=== PATIENT | male | born 1950 | race Caucasian/White ===

== ENCOUNTER 2021-09-03 10:41 | Emergency (ER) | payer MEDICARE, OTHER ==
[2021-09-03] MEDS ORDERED: KETOROLAC 15 MG/ML 1 ML VIAL IM STA (13:34)
[2021-09-03] MEDS ORDERED: ORPHENADRINE 30 MG/ML 2 ML VIAL IM STA (13:34)
[2021-09-03 13:44] VITALS: RESP 18
[2021-09-03 16:10] VITALS: BP 171/89; PULSE 75; TEMP 98.6
--- NOTE | 2021-09-03 16:26 | ED ---
General Adult HPI - General Chief complaint: Neck Pain/Injury Stated complaint: neck pain Time Seen by Provider: 09/03/21 13:11 Source: patient Mode of arrival: EMS Limitations: no limitations - History of Present Illness Initial comments: 70-year-old male with a past medical history of hyperlipidemia, thyroid disorder presents to the emergency room for a chief complaint of neck pain. Patient states that he slept wrong and woke up with this pain. Patient states it is painful to move his neck especially to the left. Patient states this has happened before. States he can look up and down without difficulty. He denies fevers and chills. He denies any injury.Patient has no other complaints at this time including shortness of breath, chest pain, abdominal pain, nausea or vomiting, headache, or visual changes. - Related Data Home Medications Medication Instructions Recorded Confirmed Levothyroxine Sodium [Synthroid] 75 mcg PO DAILY 04/12/15 09/03/21 Aspirin EC [Ecotrin Low Dose] 81 mg PO DAILY 09/03/21 09/03/21 Chlorthalidone 25 mg PO DAILY 09/03/21 09/03/21 Cholecalciferol [Vitamin D3 (125 125 mcg PO DAILY 09/03/21 09/03/21 Mcg = 5000 Iu)] Simvastatin 80 mg PO DAILY 09/03/21 09/03/21 Previous Rx's Medication Instructions Recorded Acetaminophen [Tylenol] 500 mg PO Q4-6H PRN #20 tab 09/03/21 Cyclobenzaprine [Flexeril] 5 mg PO TID #12 tablet 09/03/21 Allergies Allergy/AdvReac Type Severity Reaction Status Date / Time No Known Allergies Allergy Verified 09/03/21 14:15 Review of Systems ROS Statement: Those systems with pertinent positive or pertinent negative responses have been documented in the HPI. ROS Other: All systems not noted in ROS Statement are negative. Past Medical History Past Medical History: Hyperlipidemia, Thyroid Disorder History of Any Multi-Drug Resistant Organisms: None Reported Past Surgical History: Hernia Repair Past Psychological History: No Psychological Hx Reported Smoking Status: Current every day smoker Past Alcohol Use History: None Reported Past Drug Use History: None Reported General Exam Limitations: no limitations General appearance: alert, in no apparent distress Head exam: Present: atraumatic Eye exam: Present: normal appearance, PERRL, EOMI. Absent: scleral icterus, conjunctival injection ENT exam: Present: normal exam, mucous membranes moist Neck exam: Present: normal inspection, tenderness (Paraspinal tenderness noted in the neck bilaterally. No cervical spine tenderness.), other (Neck slightly rotated to the Right). Absent: full ROM (Patient able to flex and extend neck however not able to turn to the left. 45 rotation to the right.) Respiratory exam: Present: normal lung sounds bilaterally. Absent: respiratory distress, wheezes Cardiovascular Exam: Present: regular rate, normal rhythm, normal heart sounds GI/Abdominal exam: Present: soft, normal bowel sounds. Absent: distended, tenderness Course Vital Signs 09/03/21 09/03/21 09/03/21 11:38 13:43 16:09 Temperature 97.6 F 98.6 F Pulse Rate 71 72 75 Respiratory 20 18 18 Rate Blood Pressure 172/81 171/84 171/89 O2 Sat by Pulse 97 98 98 Oximetry Medical Decision Making - Medical Decision Making Vitals are stable. Patient is well appearing. Patient has symptoms consistent with torticollis. He has had these symptoms in the past. He was given Toradol and Norflex and symptoms improved significantly. Patient will be discharged home to follow up with primary care with low-dose Flexeril. He will return here for any worsening symptoms. I discussed this case with attending Dr. Shah who agrees with this assessment and treatment plan. Disposition Clinical Impression: Cervical strain, acute Disposition: HOME SELF-CARE Condition: Good Instructions (If sedation given, give patient instructions): Cervical Strain (ED) Additional Instructions: Take medications as directed. Follow up with your doctor in 1-2 days. Return to the ER for any worsening symptoms. Prescriptions: Cyclobenzaprine [Flexeril] 5 mg PO TID #12 tablet Acetaminophen [Tylenol] 500 mg PO Q4-6H PRN #20 tab PRN Reason: Pain Is patient prescribed a controlled substance at d/c from ED?: No Referrals: Gerardo Navarro MD [Primary Care Provider] - 1-2 days Time of Disposition: 16:25
== END 2021-09-03 16:35 | disposition home or self-care (01) ==
LOC: EC 10:41
DX: S16.1XXA Strain of muscle, fascia and tendon at neck level, initial encounter (principal); I10 Essential (primary) hypertension; F17.200 Nicotine dependence, unspecified, uncomplicated; X58.XXXA Exposure to other specified factors, initial encounter
CPT/HCPCS: 99283; 96372; J2360; J1885

== ENCOUNTER 2024-05-19 12:57 | Inpatient (IN) | payer MEDICARE, OTHER ==
--- NOTE | 2024-05-19 14:04 | ED ---
General Adult HPI <Nate Galvez - Last Filed: 05/19/24 19:54> - General Source: patient, EMS Mode of arrival: EMS Limitations: no limitations <Ani Mohr - Last Filed: 05/31/24 15:59> - General Chief complaint: Urogenital Stated complaint: failure to thrive Time Seen by Provider: 05/19/24 13:30 - History of Present Illness Initial comments: 73-year-old male with past medical history of hypertension, hyperlipidemia, rheumatoid arthritis who presents emergency department with inability to ambulate. States he has not been out of bed for 1 month. He has significant weakness in his bilateral lower extremities which causes him to have difficulties with ambulation. States for the past month he has not even attempted to get up. He has been urinating in a small container but states at this point he has been urinating on himself as there is no place to put his exretements. He has been getting food delivered from [employer]. He had a friend call EMS today. Patient does live independently (Ani Mohr) - Related Data Previous Rx's Medication Instructions Recorded Clotrimazole Cream [Lotrimin Cream] 1 applic TOPICAL BID each 05/31/24 Cyanocobalamin [Vitamin B-12 1,000 mcg IM DAILY #60 each 05/31/24 Injection] Folic Acid 1 mg PO DAILY #100 tab 05/31/24 amLODIPine [Norvasc] 5 mg PO DAILY #90 tab 05/31/24 Allergies Allergy/AdvReac Type Severity Reaction Status Date / Time No Known Allergies Allergy Verified 05/19/24 15:06 Review of Systems ROS Other: All systems not noted in ROS Statement are negative. <Nate Galvez - Last Filed: 05/19/24 19:54> ROS Other: All systems not noted in ROS Statement are negative. <Ani Mohr - Last Filed: 05/31/24 15:59> ROS Statement: Those systems with pertinent positive or pertinent negative responses have been documented in the HPI. Past Medical History Past Medical History: Hyperlipidemia, Hypertension, Rheumatoid Arthritis (RA), Thyroid Disorder History of Any Multi-Drug Resistant Organisms: None Reported Past Surgical History: Hernia Repair Past Psychological History: No Psychological Hx Reported Smoking Status: Former smoker Past Alcohol Use History: None Reported Past Drug Use History: None Reported <Ani Mohr - Last Filed: 05/31/24 15:59> General Exam Limitations: no limitations <Ani Mohr - Last Filed: 05/31/24 15:59> Course Vital Signs 05/19/24 05/19/24 05/19/24 13:12 15:12 15:43 Temperature 98.2 F 98.0 F Pulse Rate 97 94 102 H Pulse Rate [ Pulse Oximetery ] Respiratory 17 17 20 Rate Blood Pressure 135/85 130/81 129/84 Blood Pressure [Left Arm] O2 Sat by Pulse 96 97 97 Oximetry 05/19/24 05/19/24 05/19/24 16:36 16:41 18:15 Temperature Pulse Rate 91 97 Pulse Rate [ Pulse Oximetery ] Respiratory 18 20 Rate Blood Pressure 106/74 111/77 121/90 Blood Pressure [Left Arm] O2 Sat by Pulse 97 97 96 Oximetry 05/19/24 05/19/24 05/19/24 18:57 19:37 19:57 Temperature 97.5 F L Pulse Rate 98 79 Pulse Rate [ 86 Pulse Oximetery ] Respiratory 18 17 16 Rate Blood Pressure 142/80 135/91 Blood Pressure [Left Arm] O2 Sat by Pulse 100 100 Oximetry 05/19/24 20:00 Temperature 98.3 F Pulse Rate Pulse Rate [ 86 Pulse Oximetery ] Respiratory 16 Rate Blood Pressure Blood Pressure 128/81 [Left Arm] O2 Sat by Pulse 98 Oximetry Medical Decision Making - Lab Data Result diagrams: 05/19/24 15:22 05/19/24 15:22 <Nate Galvez - Last Filed: 05/19/24 19:54> - Lab Data Result diagrams: 05/28/24 05:10 05/28/24 05:10 <nAi Mohr Lucila - Last Filed: 05/31/24 15:59> - Medical Decision Making I was notified by nursing staff that patient may have a left apical pne umothorax. This was read by radiology. Patient had already been admitted by previous provider. Questionable finding on chest x-ray therefore CT chest without contrast was ordered. Patient was in agreement this plan. CT chest as interpreted by myself reveals no evidence of pneumothorax. Radiology concurs with this evaluation. Patient will be admitted to the floor. Dr. Navarro was notified of this result and was in agreement the plan. (Nate Galvez) Was pt. sent in by a medical professional or institution (, PA, DELIVERY CLERK, urgent care, hospital, or snf...) When possible be specific @ -No Did you speak to anyone other than the patient for history (EMS, parent, family, police, friend...)? What history was obtained from this source @ -Spoke with EMS for history Did you review nursing and triage notes (agree or disagree)? Why? @ -I reviewed and agree with nursing and triage notes Were old charts reviewed (outside hosp., previous admission, EMS record, old EKG, old radiological studies, urgent care reports/EKG's, snf records)? Report findings @ -No old charts were reviewed Differential Diagnosis (chest pain, altered mental status, abdominal pain women, abdominal pain men, vaginal bleeding, weakness, fever, dyspnea, syncope, head ache, dizziness, GI bleed, back pain, seizure, CVA, palpatations, mental health, musculoskeletal)? @ -Differential Weakness: Hypoglycemia, shock, sepsis, hyponatremia, anemia, infection, MT, ETOH, adverse medicine reaction, overdose, stroke, this is not meant to be an all-inclusive list. EKG interpreted by me (3pts min.). @ -Yes and demonstrates sinus rhythm with rate of 98. WV interval 120. QRS 97. QTc of 424. No acute ST segment elevations or depressions X-rays interpreted by me (1pt min.). @ -Yes and radiologist does read as questionable for pneumothorax CT interpreted by me (1pt min.). @ -CT demonstrates no pneumothorax U/S interpreted by me (1pt. min.). @ -None done What testing was considered but not performed or refused? (CT, X-rays, U/S, labs)? Why? @ -None What meds were considered but not given or refused? Why? @ -None Did you discuss the management of the patient with other professionals (professionals i.e. , TANYA, DELIVERY CLERK, lab, RT, psych nurse, elementary school social worker, litigation services manager, teacher, supply requirements officer, case maker)? Give summary @ -Spoke with Dr. Navarro who accepted the patient as an admission Was smoking cessation discussed for >3mins.? @ -No Was critical care preformed (if so, how long)? @ -No Were there social determinants of health that impacted care today? How? (Homelessness, low income, unemployed, alcoholism, drug addiction, transportation, low edu. Level, literacy, decrease access to med. care, senior living, rehab)? @ -No Was there de-escalation of care discussed even if they declined (Discuss DNR or withdrawal of care, Hospice)? DNR status @ -No What co-morbidities impacted this encounter? (DM, HTN, Smoking, COPD, CAD, Cancer, CVA, ARF, Chemo, Hep., AIDS, mental health diagnosis, sleep apnea, morbid obesity)? @ -None Was patient admitted / discharged? Hospital course, mention meds given and route, prescriptions, significant lab abnormalities, going to OR and other pertinent info. @ -Upon arrival patient seen and evaluated in room 19. Thorough history and physical exam was performed. Patient completely disheveled. IV was established and laboratory studies are conducted. Chest x-ray was performed. Patient unable to care for himself I did speak with Dr. Navarro who will accept the patient Undiagnosed new problem with uncertain prognosis? @ -No Drug Therapy requiring intensive monitoring for toxicity (Heparin, Nitro, Insulin, Cardizem)? @ -No Were any procedures done? @ -No Diagnosis/symptom? @ -Acute weakness, inability to ambulate Acute, or Chronic, or Acute on Chronic? @ -Acute Uncomplicated (without systemic symptoms) or Complicated (systemic symptoms)? @ -Complicated Side effects of treatment? @ -No Exacerbation, Progression, or Severe Exacerbation? @ -No Poses a threat to life or bodily function? How? (Chest pain, USA, MT, pneumonia, PE, COPD, DKA, ARF, appy, cholecystitis, CVA, Diverticulitis, Homicidal, Suicidal, threat to staff... and all critical care pts) @ -No (Ani Mohr) - Lab Data Lab Results 05/19/24 05/19/24 05/19/24 Range/Units 15:22 15:22 15:22 WBC 7.9 (3.8-10.6) k/uL RBC 5.02 (4.30-5.90) m/uL Hgb 14.8 (13.0-17.5) gm/dL Hct 44.8 (39.0-53.0) % MCV 89.2 (80.0-100.0) fL MCH 29.5 (25.0-35.0) pg MCHC 33.1 (31.0-37.0) g/dL RDW 12.3 (11.5-15.5) % Plt Count 141 L (150-450) k/uL MPV 10.3 Neutrophils % 80 % Lymphocytes % 10 % Monocytes % 6 % Eosinophils % 1 % Basophils % 0 % Neutrophils # 6.4 (1.3-7.7) k/uL Lymphocytes # 0.8 L (1.0-4.8) k/uL Monocytes # 0.5 (0-1.0) k/uL Eosinophils # 0.1 (0-0.7) k/uL Basophils # 0.0 (0-0.2) k/uL PT 11.0 (10.0-12.5) sec INR 1.0 (<1.2) APTT 21.1 L (22.0-30.0) sec Sodium 136 L (137-145) mmol/L Potassium 5.3 H (3.5-5.1) mmol/L Chloride 107 (98-107) mmol/L Carbon Dioxide 22 (22-30) mmol/L Anion Gap 7 mmol/L BUN 19 (9-20) mg/dL Creatinine 0.80 (0.66-1.25) mg/dL Est GFR (CKD-EPI)AfAm >90 (>60 ml/min/1.73 sqM) Est GFR (CKD-EPI)NonAf >90 (>60 ml/min/1.73 sqM) Glucose 94 (74-99) mg/dL Plasma Lactic Acid Leonard (0.7-2.0) mmol/L Calcium 9.7 (8.4-10.2) mg/dL Magnesium 1.8 (1.6-2.3) mg/dL Total Bilirubin 1.4 H (0.2-1.3) mg/dL AST 38 (17-59) U/L ALT 24 (4-49) U/L Alkaline Phosphatase 59 (38-126) U/L Troponin I (0.000-0.034) ng/mL Total Protein 7.9 (6.3-8.2) g/dL Albumin 4.4 (3.5-5.0) g/dL TSH 2.390 (0.465-4.680) mIU/L SARS-CoV-2 (PCR) (Not Detectd) 05/19/24 05/19/24 05/19/24 Range/Units 15:22 15:22 15:22 WBC (3.8-10.6) k/uL RBC (4.30-5.90) m/uL Hgb (13.0-17.5) gm/dL Hct (39.0-53.0) % MCV (80.0-100.0) fL MCH (25.0-35.0) pg MCHC (31.0-37.0) g/dL RDW (11.5-15.5) % Plt Count (150-450) k/uL MPV Neutrophils % % Lymphocytes % % Monocytes % % Eosinophils % % Basophils % % Neutrophils # (1.3-7.7) k/uL Lymphocytes # (1.0-4.8) k/uL Monocytes # (0-1.0) k/uL Eosinophils # (0-0.7) k/uL Basophils # (0-0.2) k/uL PT (10.0-12.5) sec INR (<1.2) APTT (22.0-30.0) sec Sodium (137-145) mmol/L Potassium (3.5-5.1) mmol/L Chloride (98-107) mmol/L Carbon Dioxide (22-30) mmol/L Anion Gap mmol/L BUN (9-20) mg/dL Creatinine (0.66-1.25) mg/dL Est GFR (CKD-EPI)AfAm (>60 ml/min/1.73 sqM) Est GFR (CKD-EPI)NonAf (>60 ml/min/1.73 sqM) Glucose (74-99) mg/dL Plasma Lactic Acid Leonard 1.3 (0.7-2.0) mmol/L Calcium (8.4-10.2) mg/dL Magnesium (1.6-2.3) mg/dL Total Bilirubin (0.2-1.3) mg/dL AST (17-59) U/L ALT (4-49) U/L Alkaline Phosphatase (38-126) U/L Troponin I 0.017 (0.000-0.034) ng/mL Total Protein (6.3-8.2) g/dL Albumin (3.5-5.0) g/dL TSH (0.465-4.680) mIU/L SARS-CoV-2 (PCR) Not Detected (Not Detectd) Disposition <Nate Galvez - Last Filed: 05/19/24 19:54> Is patient prescribed a controlled substance at d/c from ED?: No Time of Disposition: 15:19 Decision to Admit Reason: Admit from EC Decision Date: 05/19/24 Decision Time: 15:19 <Ani Mohr - Last Filed: 05/31/24 15:59> Clinical Impression: Unable to ambulate Disposition: ADMITTED IP TO THIS HOSP Condition: Stable
[2024-05-19] MEDS ORDERED: NALOXONE 0.4 MG/ML 1 ML VIAL IV PRN (15:22)
[2024-05-19 15:47] LABS: Basophils % (A) 0 %; Eosinophils # (A) 0.1 k/uL (0-0.7); Eosinophils % (A) 1 %; HCT 44.8 % (39.0-53.0); HGB 14.8 gm/dL (13.0-17.5); Lymphocytes # (A) 0.8 k/uL (1.0-4.8); Lymphocytes % (A) 10 %; MCH 29.5 pg (25.0-35.0); MCHC 33.1 g/dL (31.0-37.0); MCV 89.2 fL (80.0-100.0); Mean Platelet Volume 10.3; Monocytes # (A) 0.5 k/uL (0-1.0); Monocytes % (A) 6 %; Neutrophils # (A) 6.4 k/uL (1.3-7.7); Neutrophils % (A) 80 %; Platelet Count 141 k/uL (150-450); RBC 5.02 m/uL (4.30-5.90); RDW 12.3 % (11.5-15.5); WBC 7.9 k/uL (3.8-10.6)
[2024-05-19 16:06] LABS: ALT 24 U/L (4-49); African American GFR (CKD) >90 (>60 ml/min/1.73 sqM); Albumin 4.4 g/dL (3.5-5.0); Anion Gap 7 mmol/L; Blood Urea Nitrogen 19 mg/dL (9-20); Calcium 9.7 mg/dL (8.4-10.2); Carbon Dioxide 22 mmol/L (22-30); Chloride 107 mmol/L (98-107); Glucose 94 mg/dL (74-99); Magnesium 1.8 mg/dL (1.6-2.3); Non-African American GFR(CKD) >90 (>60 ml/min/1.73 sqM); Sodium 136 mmol/L (137-145); Total Protein 7.9 g/dL (6.3-8.2)
[2024-05-19 16:13] LABS: AST 38 U/L (17-59); Alkaline Phosphatase 59 U/L (38-126); Potassium 5.3 mmol/L (3.5-5.1); Total Bilirubin 1.4 mg/dL (0.2-1.3)
[2024-05-19 16:16] LABS: Partial Thromboplastin Time 21.1 sec (22.0-30.0)
[2024-05-19] MEDS: SODIUM CHLORIDE 0.9% 1,000 ML IV SCH (16:41)
--- NOTE | 2024-05-19 18:05 | XR ---
EXAMINATION TYPE: XR chest 2V DATE OF EXAM: 05/19/2024 COMPARISON: 11/30/2023 HISTORY: 73-year-old male with cough and pain, failure to thrive TECHNIQUE: AP and lateral views FINDINGS: Heart is normal in size. Aorta and pulmonary vasculature are within normal limits. Hyperinflation. No consolidation or pleural effusion. There is an edge projecting at the left apex. Unable to exclude a small left apical pneumothorax measuring 1.9 cm. IMPRESSION: 1. Correlate for underlying COPD 2. An edge projecting at the left apex. Either external artifact or a small 1.9 cm left apical pneumo thorax. Depending on clinical suspicion, either a short interval follow-up versus CT recommended. Ca lled to nurse Prudy at 6:01 pm. [facility], , 05/19/2024 6:02 PM
--- NOTE | 2024-05-19 19:35 | CT ---
EXAMINATION TYPE: CT chest wo con DATE OF EXAM: 05/19/2024 COMPARISON: Radiograph same day HISTORY: 73-year-old male rule out left-sided apical pneumothorax. TECHNIQUE: Contiguous axial scanning of the chest without IV contrast. Coronal/sagittal reconstructio ns performed. CT DLP: 249.1mGycm. Automatic exposure control utilized for a dose reduction. FINDINGS: The patient's right arm is down. Correlate as to the reason for this. Heart normal size without pericardial effusion. In LAD and RCA coronary artery calcifications are pre sent. Aorta normal caliber with mild atherosclerotic arch calcifications and conventional arterial anatomy. Possible moderate atherosclerotic stenosis at the origin of the left subclavian artery. No thoracic lymphadenopathy by CT size criteria. Moderate emphysematous change with combination of centrilobular and paraseptal emphysema at the upper lungs. Scattered pulmonary nodules are present some of which are calcified suggesting prior granulomatous di sease. however, other nodules measuring up to 6 mm are noncalcified and warrant follow-up. No consolidation or pleural effusion. There is adherent mucoid debris along the right lateral wall of the lower trachea. Visualized upper abdomen shows some calcified granulomas in the spleen. Mild diffuse thickening left adrenal gland without discrete nodularity. Bones: Mildly accentuated midthoracic kyphosis with mild degenerative disc disease. IMPRESSION: 1. COPD with moderate emphysema and evidence of prior granulomatous disease. 2. However, there are additional noncalcified pulmonary nodules measuring up to 6 mm. 3 month follow- up CT chest to ensure stability. 3. No pneumothorax. Radiographic findings correspond to overlying artifact. 4. Correlate for the reason as to why the patient could not lift his right arm. [facility], , 05/19/2024 7:32 PM
[2024-05-19] MEDS: ZINC OXIDE PASTE (Z-GUARD) 1 APPLIC TOPICAL PRN (23:00)
[2024-05-20 08:47] LABS: Basophils # (A) 0.05 X 10*3/uL (0.00-0.10); Basophils % (A) 0.7 %; Eosinophils # (A) 0.11 X 10*3/uL (0.04-0.35); Eosinophils % (A) 1.5 %; HCT 41.5 % (39.6-50.0); Lymphocytes # (A) 1.28 X 10*3/uL (0.90-5.00); Lymphocytes % (A) 17.8 %; MCH 29.3 pg (27.0-32.0); MCHC 33.7 g/dL (32.0-37.0); MCV 86.8 FL (80.0-97.0); Mean Platelet Volume 12.9 FL (9.5-12.2); Monocytes % (A) 12.5 %; NRBC Per 100 WBC 0 X 10*3/uL (0.00-0.01); Neutrophils # (A) 4.81 X 10*3/uL (1.80-7.70); Neutrophils % (A) 67.1 %; Platelet Count 136 X 10*3/uL (140-440); RBC 4.78 X 10*6/uL (4.40-5.60); RDW 12.4 % (11.5-14.5); WBC 7.18 X 10*3/uL (4.50-10.00)
[2024-05-20 08:54] LABS: ALT 21 U/L (10-49); AST 26 U/L (14-35); Albumin 3.8 g/dL (3.8-4.9); Albumin/Globulin Ratio 1.31 Ratio (1.60-3.17); Alkaline Phosphatase 65 U/L (41-126); BUN/Creat Ratio 17.11 Ratio (12.00-20.00); Blood Urea Nitrogen 15.4 mg/dL (9.0-27.0); Calcium 9.2 mg/dL (8.7-10.3); Carbon Dioxide 21.6 mmol/L (21.6-31.8); Chloride 104 mmol/L (96-109); Globulin 2.9 g/dL (1.6-3.3); Glucose 78 mg/dL (70-110); Potassium 4.3 mmol/L (3.5-5.5); Sodium 139 mmol/L (135-145); Total Bilirubin 0.8 mg/dL (0.3-1.2); Total Protein 6.7 g/dL (6.2-8.2)
[2024-05-20] MEDS: LIDOCAINE 2% URO-JET JELLY 5 ML KIT URETHRAL ONE (17:49)
[2024-05-20] MEDS: LIDOCAINE 2% (PF) 20 MG/ML 5 ML VIAL SQ STA (17:49)
--- NOTE | 2024-05-20 17:56 | P.GSCN ---
History of Present Illness Consult date: 05/20/24 Reason for Consult: Urinary retention Requesting physician: Gerardo Navarro History of present illness: The patient is a 73-year-old white male admitted with weakness. He is experiencing difficulty ambulating. He reports difficulty voiding. Bladder scan has shown over 500 cc of urine in the bladder. Attempts by the nursing staff to insert a Charles catheter were unsuccessful. I am consulted for this reason. The patient is a very vague historian and is unable to provide any relevant history. Review of Systems ROS unobtainable: due to mental status Past Medical History Past Medical History: Hyperlipidemia, Hypertension, Rheumatoid Arthritis (RA), Thyroid Disorder History of Any Multi-Drug Resistant Organisms: None Reported Past Surgical History: Hernia Repair Past Anesthesia/Blood Transfusion Reactions: No Reported Reaction Past Psychological History: No Psychological Hx Reported Smoking Status: Former smoker Past Alcohol Use History: None Reported Past Drug Use History: None Reported Medications and Allergies Home Medications Medication Instructions Recorded Confirmed Type No Known Home Medications 05/19/24 05/19/24 History Allergies Allergy/AdvReac Type Severity Reaction Status Date / Time No Known Allergies Allergy Verified 05/19/24 15:06 Surgical - Exam Vital Signs Temp Pulse Resp BP Pulse Ox 98.2 F 97 17 135/85 96 05/19/24 13:12 05/19/24 13:12 05/19/24 13:12 05/19/24 13:12 05/19/24 13:12 - General well developed, well nourished, moderate distress - Respiratory normal respiratory effort - Abdomen Soft, non-distended. Mild suprapubic tenderness and distention. - Genitourinary Uncircumcised phallus without lesions. Normal urethral meatus. Normal scrotum and testes. - Psychiatric oriented to time, oriented to person, oriented to place, speech is normal, memory intact Results - Labs 05/20/24 04:39 05/20/24 04:39 Abnormal Lab Results - Last 24 Hours (Table) 05/20/24 05/20/24 Range/Units 04:39 04:39 Plt Count 136 L (140-440) X 10*3/uL MPV 12.9 H (9.5-12.2) FL Anion Gap 13.40 H (4.00-12.00) mmol/L Albumin/Globulin Ratio 1.31 L (1.60-3.17) Ratio Diabetes panel 05/20/24 Range/Units 04:39 Sodium 139 (135-145) mmol/L Potassium 4.3 (3.5-5.5) mmol/L Chloride 104 (96-109) mmol/L Carbon Dioxide 21.6 (21.6-31.8) mmol/L BUN 15.4 (9.0-27.0) mg/dL Creatinine 0.9 (0.6-1.5) mg/dL Glucose 78 (70-110) mg/dL Calcium 9.2 (8.7-10.3) mg/dL AST 26 (14-35) U/L ALT 21 (10-49) U/L Alkaline Phosphatase 65 (41-126) U/L Total Protein 6.7 (6.2-8.2) g/dL Albumin 3.8 (3.8-4.9) g/dL Calcium panel 05/20/24 Range/Units 04:39 Calcium 9.2 (8.7-10.3) mg/dL Albumin 3.8 (3.8-4.9) g/dL Pituitary panel 05/20/24 Range/Units 04:39 Sodium 139 (135-145) mmol/L Potassium 4.3 (3.5-5.5) mmol/L Chloride 104 (96-109) mmol/L Carbon Dioxide 21.6 (21.6-31.8) mmol/L BUN 15.4 (9.0-27.0) mg/dL Creatinine 0.9 (0.6-1.5) mg/dL Glucose 78 (70-110) mg/dL Calcium 9.2 (8.7-10.3) mg/dL Adrenal panel 05/20/24 Range/Units 04:39 Sodium 139 (135-145) mmol/L Potassium 4.3 (3.5-5.5) mmol/L Chloride 104 (96-109) mmol/L Carbon Dioxide 21.6 (21.6-31.8) mmol/L BUN 15.4 (9.0-27.0) mg/dL Creatinine 0.9 (0.6-1.5) mg/dL Glucose 78 (70-110) mg/dL Calcium 9.2 (8.7-10.3) mg/dL Total Bilirubin 0.8 (0.3-1.2) mg/dL AST 26 (14-35) U/L ALT 21 (10-49) U/L Alkaline Phosphatase 65 (41-126) U/L Total Protein 6.7 (6.2-8.2) g/dL Albumin 3.8 (3.8-4.9) g/dL Assessment and Plan (1) Retention of urine, unspecified Current Visit: Yes Status: Acute Code(s): R33.9 - RETENTION OF URINE, UNSPECIFIED SNOMED Code(s): 013699676 Plan: Attempts to place a Charles catheter were unsuccessful. Ultimately, it was necessary to place a suprapubic cystostomy tube, which the patient tolerated well. The suprapubic tube was connected to gravity drainage. Cystoscopy will be performed in 2 to 4 weeks to evaluate the lower urinary tract. Time with Patient: Greater than 30
--- NOTE | 2024-05-20 17:58 | P.OP ---
Date of Procedure: 05/20/24 Preoperative Diagnosis: Urinary retention Postoperative Diagnosis: Urinary retention, urethral false passage Procedure(s) Performed: Urethroscopy, insertion of suprapubic cystostomy tube Anesthesia: local Surgeon: Wilman Whitt Estimated Blood Loss (ml): 5 Pathology: none sent Condition: stable Disposition: no change Indications for Procedure: The patient is a 73-year-old white male found to be in urinary retention. He is a vague historian. Attempts by the nursing staff to insert a Charles catheter were unsuccessful. I have been consulted for this reason. Operative Findings: 1) Bulbous urethral false passage. 2) Successful placement of suprapubic cystostomy tube. Description of Procedure: The penis was prepped and draped sterilely. 2% lidocaine gel was administered intraurethrally. Attempts to pass a 16 Divehi and a 12 Divehi coud tip Charles catheter were unsuccessful. Therefore, the Olympus flexible cystoscope was obtained and urethroscopy was performed. The penile urethra appeared normal. A false passage was identified within the bulbous urethra. It was not possible to identify the lumen, and thus it was not possible to advance the cystoscope into the bladder. The patient was advised to undergo placement of a suprapubic cystostomy tube, to which she was agreeable. The lower abdomen was prepped and draped sterilely. 2% lidocaine was injected subcutaneously 2 fingerbreadths above the pubis symphy sis, in the midline. The suprapubic cystostomy tube kit consisted of an 18- gauge needle and a 14 Divehi catheter. This was slowly advanced into the bladder, and after removing the needle the catheter was advanced and secured to the abdominal wall using 2-0 silk ties. Clear urine drained from the catheter, which was connected to gravity drainage. The patient tolerated the procedure well.
[2024-05-20 18:51] LABS: Appearance,Urine Clear (Clear); Bilirubin,Urine Negative (Negative); Blood,Urine Moderate (Negative); Color,Urine Yellow; Glucose,Urine (UA) Negative (Negative); Ketones,Urine Negative (Negative); Leukocyte Esterase,Urine Large (Negative); Mucus,Urine Rare /hpf; Nitrite,Urine Negative (Negative); Protein,Urine Negative (Negative); RBC,Urine 82 /hpf (0-5); Specific Gravity,Urine 1.018 (1.001-1.035); WBC,Urine 26 /hpf (0-5)
[2024-05-20] MEDS: CLOTRIMAZOLE 1% CREAM 30 GM TUBE TOPICAL SCH (20:24)
--- NOTE | 2024-05-21 02:02 | HP ---
HISTORY AND PHYSICAL CHIEF COMPLAINT: Weakness, general debility. HISTORY OF PRESENT ILLNESS: This is 1st known admission for this 73-year-old white male. He used to be seen in the office through the years for mild hypertension and heavy nicotine use. He came into the emergency room on the day of admission stating that he had not been out of the bed for a year. He relies on meals on wheels. He came in disheveled and covered with urine and feces. He may be slightly delirious and confused, but it was difficult to tell. He had no focal neurologic deficits, and he had no complaints of chest pain, abdominal pain, etc. REVIEW OF SYSTEMS: Difficult to obtain. Past medical history, family history, personal and social histories are all otherwise unknown except as mentioned. PHYSICAL EXAMINATION: VITAL SIGNS: Blood pressure is 182/98 with a pulse of 90, respirations were 32. GENERAL: He appeared to be debilitated, weak, dehydrated, and malnourished. HEAD, EARS, EYES, NOSE, MOUTH AND THROAT: Unremarkable. NECK: Carotids were normal. CHEST: Clear. CARDIAC: Normal. ABDOMEN: Flat and soft. He had extensive maceration in the groin and genital areas. EXTREMITIES: Seemed to be normal. IMPRESSION: 1. General debility and weakness. 2. Maceration of the perineum and groin. 3. Chronic obstructive pulmonary disease. 4. Hypertension. PLAN: 1. Bed rest. 2. IV fluids. 3. Controlled hypertension. 4. Physical therapy, occupational therapy, and discharge planning. MMODL / IJN: [id number] /
--- NOTE | 2024-05-21 02:38 | PN ---
PROGRESS NOTE DATE OF SERVICE: 05/20/2024 CHIEF COMPLAINT: Mental status changes, malnutrition, dehydration, and general debility. HISTORY OF PRESENT ILLNESS: This gentleman is still weak and dehydrated. He is delirious. Cognitive function is not normal. PHYSICAL EXAMINATION: VITAL SIGNS: Blood pressure is 182/98. LUNGS: Breath sounds are heard bilaterally. CARDIAC: Normal. IMPRESSION: 1. Dehydration. 2. Malnutrition. 3. Delirium. 4. General debility. 5. Chronic obstructive pulmonary disease. 6. Hypertension. PLAN: 1. Continue with IV fluids. 2. PT, OT, and discharge planning. 3. Monitor pain control, hypertension. MMODL / IJN: [id number] /
--- NOTE | 2024-05-21 10:44 | P.PN ---
Subjective Progress Note Date: 05/21/24 Principal diagnosis: Urinary retention Patient was admitted with weakness and inability to ambulate. He reported difficulty voiding and was found to be in urinary retention. A Charles catheter could not be placed due to a urethral false passage, and therefore a suprapubic cystostomy tube was placed. The catheter is currently draining clear yellow urine, and the patient expresses no discomfort associated with that. He has no significant urethral bleeding. Objective - Vital Signs Vital signs: Vital Signs Temp 97.3 F L 05/21/24 07:13 Pulse 81 05/21/24 07:13 Resp 16 05/21/24 07:13 BP 165/80 05/21/24 07:13 Pulse Ox 96 05/21/24 07:13 FiO2 Intake & Output 05/20/24 05/21/24 05/21/24 18:59 06:59 18:59 Intake Total 590 Output Total 50 1400 Balance -50 -810 Intake: Oral 590 Output: Urine 50 1400 Other: Voiding Method Diaper Ileal Conduit (Right) Incontinent # Voids 1 - Constitutional General appearance: Present: average body habitus, cooperative, no acute distress - Psychiatric Psychiatric: Present: A&O x's 3 - Labs CBC & Chem 7: 05/20/24 04:39 05/20/24 04:39 Labs: Abnormal Lab Results - Last 24 Hours (Table) 05/20/24 Range/Units 18:04 Urine Blood Moderate H (Negative) Ur Leukocyte Esterase Large H (Negative) Urine RBC 82 H (0-5) /hpf Urine WBC 26 H (0-5) /hpf Urine Mucus Rare H (None) /hpf Assessment and Plan (1) Retention of urine, unspecified Current Visit: Yes Status: Acute Code(s): R33.9 - RETENTION OF URINE, UNSPECIFIED SNOMED Code(s): 902304525 Plan: It is unclear at this time whether the patient will be discharged home or to a rehab center. In any case, he should be discharged with the suprapubic tube. Arrangements will be made for him to undergo cystoscopy in 3 to 4 weeks to evaluate the lower urinary tract. Please notify me if I can be of any further assistance during this hospitalization.
[2024-05-21 11:27] LABS: African American GFR (CKD) >90 (>60 ml/min/1.73 sqM); Anion Gap 8 mmol/L; Blood Urea Nitrogen 13 mg/dL (9-20); Calcium 8.4 mg/dL (8.4-10.2); Carbon Dioxide 22 mmol/L (22-30); Chloride 105 mmol/L (98-107); Glucose 95 mg/dL (74-99); Non-African American GFR(CKD) 89 (>60 ml/min/1.73 sqM); Potassium 3.6 mmol/L (3.5-5.1); Sodium 135 mmol/L (137-145)
[2024-05-21 11:40] LABS: Basophils % (A) 0 %; Eosinophils % (A) 0 %; Lymphocytes # (A) 0.6 k/uL (1.0-4.8); Lymphocytes % (A) 8 %; MCH 29.6 pg (25.0-35.0); MCHC 33.4 g/dL (31.0-37.0); MCV 88.7 fL (80.0-100.0); Mean Platelet Volume 10.4; Monocytes # (A) 0.7 k/uL (0-1.0); Monocytes % (A) 9 %; Neutrophils # (A) 6.5 k/uL (1.3-7.7); Neutrophils % (A) 82 %; Platelet Count 119 k/uL (150-450); RBC 4.39 m/uL (4.30-5.90); RDW 12.2 % (11.5-15.5); WBC 7.9 k/uL (3.8-10.6)
--- NOTE | 2024-05-21 12:14 | PN ---
PROGRESS NOTE CHIEF COMPLAINT: General debility, urinary retention, COPD. HISTORY OF PRESENT ILLNESS: This is a gentleman who has been fairly stable. His blood pressure has gone up slightly. Catheter could not be placed yesterday and he wound up with a suprapubic cystoscopy. PHYSICAL EXAMINATION: CHEST: Clear. CARDIAC: Normal. ABDOMEN: Soft, nontender. IMPRESSION: 1. General debility and weakness. 2. Urinary retention. 3. Chronic obstructive pulmonary disease. 4. Mental status changes. PLAN: 1. PT and OT. 2. Continue rehydration. 3. Discharge planning. MMODL / IJN: [id number] /
[2024-05-22] MEDS: ACETAMINOPHEN TAB 325 MG TAB PO PRN (16:02)
--- NOTE | 2024-05-22 21:44 | PN ---
PROGRESS NOTE DATE OF SERVICE: 05/22/2024 CHIEF COMPLAINT: General debility and mental status changes. HISTORY OF PRESENT ILLNESS: This gentleman is doing fairly well. Suprapubic catheter is in place. He remains confused and his speech is not normal. He is complaining of some back pain. PHYSICAL EXAMINATION: CHEST: Clear. CARDIAC: Normal. ABDOMEN: Flat, nontender. Suprapubic catheter is in place. IMPRESSION: 1. Mental status changes. 2. General debility. 3. Urinary retention. 4. Back pain. PLAN: Tylenol for back pain and assess this week as to what his sensory motor, speech, and cognitive function are. MMODL / IJN: [id number] /
--- NOTE | 2024-05-22 22:08 | PN ---
PROGRESS NOTE DATE OF SERVICE: 05/21/2024 CHIEF COMPLAINT: General debility, weakness, mental status changes. HISTORY OF PRESENT ILLNESS: This gentleman is the same. He is awake and alert, but confused and does have difficulty with speech. PHYSICAL EXAMINATION: VITAL SIGNS: Normal. CHEST: Clear. CARDIAC: Normal. ABDOMEN: Flat and soft. IMPRESSION: 1. General debility. 2. Mental status changes. 3. Dysarthria. PLAN: Continue to stabilize and look at rehab capabilities. MMANJUL / PANCHITON: [id number] /
[2024-05-24] MEDS: amLODIPine 5 MG TAB PO SCH (08:35)
--- NOTE | 2024-05-24 22:20 | PN ---
PROGRESS NOTE DATE OF SERVICE: 05/23/2024 CHIEF COMPLAINT: General debility, weakness, mental status changes, COPD, and inability to ambulate. HISTORY OF PRESENT ILLNESS: This gentleman is doing about the same. He cannot bear weight. His blood pressure is elevated and this will be addressed. We are waiting for discharge plan. PHYSICAL EXAMINATION: CHEST: Breath sounds are heard bilaterally. CARDIAC: Normal. ABDOMEN: Soft, nontender. IMPRESSION: 1. General debility and weakness with inability to ambulate. 2. Chronic obstructive pulmonary disease. 3. Mental status changes. 4. Hypertension. PLAN: Await for discharge location and in the meantime manage his hypertension. MMODL / IJN: [id number] /
--- NOTE | 2024-05-26 04:16 | PN ---
PROGRESS NOTE DATE OF SERVICE: 05/24/2024 CHIEF COMPLAINT: General debility, dehydration, malnutrition, and inability to ambulate. HISTORY OF PRESENT ILLNESS: This gentleman has been fairly stable. Blood pressure is better. He is awake and alert. PHYSICAL EXAMINATION: CHEST: Clear. CARDIAC: Normal. ABDOMEN: Flat and soft with suprapubic catheter in place. IMPRESSION: 1. General debility. 2. Failure to thrive. 3. Malnutrition. 4. Dehydration. 5. Left leg weakness with inability to ambulate. 6. Urinary retention. PLAN: No current change in his program. MMODL / IJN: [id number] /
--- NOTE | 2024-05-26 04:32 | PN ---
PROGRESS NOTE DATE OF SERVICE: 05/25/2024 CHIEF COMPLAINT: General debility, weakness, malnutrition, dehydration, and urinary retention. HISTORY OF PRESENT ILLNESS: This gentleman is doing fairly well and is stable and we are looking for half-way after discharge. MMANJUL / IJN: [id number] /
[2024-05-26 13:16] VITALS: BMI 26.6
--- NOTE | 2024-05-27 01:14 | PN ---
PROGRESS NOTE DATE OF SERVICE: 05/26/2024 CHIEF COMPLAINT: General debility and weakness. HISTORY OF PRESENT ILLNESS: This gentleman is about the same. We are looking for mcc placement. I learned today that he has a family and also a guardian. Apparently, they have been talking to the hospital and want him to have an orthopedic consult for his back and a neurologic consult for his weakness. Apparently, there is a family history of ALS. PHYSICAL EXAMINATION: CHEST: Clear. CARDIAC: Normal. ABDOMEN: Soft, nontender. IMPRESSION: 1. General debility and weakness. 2. Malnutrition. 3. Dehydration. 4. Urinary retention. PLAN: Consult with Orthopedics and Neurology. MMODL / IJN: [id number] /
--- NOTE | 2024-05-27 07:27 | CDI ---
Documentation Clarification Form Date: 05/27/2024 From: Sandra Doran RN CCDS Phone: [phone] Admit Date: 05/19/2024 03:57:00 PM Patient Name: Guerrero Johnson Visit Number: [id number] Discharge Date: ATTENTION: The Clinical Documentation Specialists (CDI) and [facility] Coding Staff appreciate your assistance in clarifying documentation. Please respond to the clarification below the line at the bottom and electronically sign. The CDI & [facility] Coding staff will review the response and follow-up if needed. Please note: Queries are made part of the Legal Health Record. If you have any questions, please contact the author of this message via ITS. Doctor/Provider: Gerardo Navarro MD: Malnutrition is documented in the IM progress note 05/20 and in subsequent notes. Additional clarification regarding the severity of malnutrition is requested. History/Risk Factors: 73-year-old male with a history of HTN, and heavy nicotine use who presents with general debility and weakness, unable to ambulate, dehydration, also found to have urinary retention and hyponatremia Clinical Indicators: 05/26 BMI: 26.6 Height: 5ft 7in Weight: 77.11kg 05/20 IM PN, Impression: "2. Malnutrition" 05/26 RD Consult Assessment: "Nutrition Diagnosis, Inadequate energy intake, Related to diminished appetite as Evidenced by <75% of EEN being met" 05/19-05/21 Sodium: 136, 139, 135 Potassium: 5.3, 4.3, 3.6 Treatment: Healthy Heart Diet, Ensure Enlive TID Normal Saline IV 130cc/hour start 05/19 Please clarify the severity of malnutrition, if known: [ ] Mild Protein-Calorie Malnutrition [ ] Moderate Protein-Calorie Malnutrition [ ] Severe Protein-Calorie Malnutrition [ ] Malnutrition, unknown severity [ ] Other condition, please specify [ ] Unable to Determine Answered in IM PN 05/27- mild protein calorie malnutrition MTDD
--- NOTE | 2024-05-27 07:44 | CDI ---
Documentation Clarification Form Date: 05/27/2024 From: Sandra Doran RN CCDS Phone: [phone] Admit Date: 05/19/2024 03:57:00 PM Patient Name: Guerrero Johnson Visit Number: [id number] Discharge Date: ATTENTION: The Clinical Documentation Specialists (CDI) and [facility] Coding Staff appreciate your assistance in clarifying documentation. Please respond to the clarification below the line at the bottom and electronically sign. The CDI & [facility] Coding staff will review the response and follow-up if needed. Please note: Queries are made part of the Legal Health Record. If you have any questions, please contact the author of this message via ITS. Doctor/Provider: Gerardo Navarro MD: Your patient has the documented symptom of Confused" in the IM progress note 05/22. Additional clarification regarding the etiology/cause of this symptom is requested. History/Risk Factors: 73-year-old male with a history of HTN, and heavy nicotine use who presents with general debility and weakness, unable to ambulate, dehydration, also found to have urinary retention and hyponatremia Clinical Indicators: 05/20 IM PN, Impression: "3. Delirium" 05/22 IM PN, HPI: "He is awake and alert, but confused and does have difficulty with speech." Impression: "2. Mental status changes" 05/19-05/21 Sodium: 136, 139, 135 Potassium: 5.3, 4.3, 3.6 05/20 Urinalysis: Blood: Moderate, Leukocyte Esterase: Large, RBC: 82, WBC: 26, Mucus: Rare Treatment: Normal Saline IV 130cc/hour start 05/19 Please clarify the etiology of the symptom of Confused: [ ] Metabolic Encephalopathy due to abnormal Sodium, Potassium and Urinalysis [ ] Other condition (please specify) [ ] Unable to determine Answered in IM PN 05/27- Acute metabolic encephalopathy MTDD
[2024-05-27] MEDS: ENOXAPARIN 30 MG/0.3 ML SYRINGE SQ SCH (12:01)
--- NOTE | 2024-05-27 13:10 | P.CNOR ---
History of Present Illness - [facility] Consult date: 05/27/24 Requesting physician: Gerardo Navarro Consult reason: other (Lower extremity weakness greater on the left than the right, generalized weakness) History of present illness: Patient is a pleasant 73-year-old male who is seen examined the bedside for further valuation of his lumbar spine. Patient has been experiencing progressive weakness over the past several months and we were consulted in this regard. Patient states he does not experience any low back pain. He does not have any pain radiating down his bilateral lower extremities. He does admit to generalized weakness in his bilateral lower extremities which has been worsening over the past several months. He states approximately 6 months ago he was able to ambulate better. He states 2 months ago he was able to stand at the bedside. He is no longer able to ambulate independently. He does not have any sign ificant pain. He states he did try some different shoes that may have caused some pain in his calfs. He does admit to some calf pain bilaterally but no specific radicular pattern. He does have difficulty extending his knees bilaterally. He states he is known to have rheumatoid arthritis and does have some difficulty with this. He does have some changes in his hands bilaterally. He states he has limited range of motion and activity with his right upper extremity due to his rheumatoid arthritis over the past year. He denies any recent injuries. He does not have any imaging performed of his lumbar spine. Consultation has been placed with neurology for his weakness. Nursing states patient has a family history of Loida Gehrig's disease. Patient states his mother had Loida Gehrig's disease. Patient was having urinary retention. They were unable to pass a urinary catheter due to urethral false passage. A suprapubic catheter was placed by Dr. Whitt. Patient continues to be seen by medicine. He is planning for discharge to a rehabilitation facility at the time of discharge. Patient does have a legal guardian. Past Medical History Past Medical History: Hyperlipidemia, Hypertension, Rheumatoid Arthritis (RA), Thyroid Disorder History of Any Multi-Drug Resistant Organisms: None Reported Past Surgical History: Hernia Repair Past Anesthesia/Blood Transfusion Reactions: No Reported Reaction Past Psychological History: No Psychological Hx Reported Smoking Status: Former smoker Past Alcohol Use History: None Reported Past Drug Use History: None Reported Medications and Allergies Home Medications Medication Instructions Recorded Confirmed Type No Known Home Medications 05/19/24 05/19/24 History Allergies Allergy/AdvReac Type Severity Reaction Status Date / Time No Known Allergies Allergy Verified 05/19/24 15:06 Physical Examination Osteopathic Statement: *. No significant issues noted on an osteopathic structural exam other than those noted in the History and Physical/Consult. Physical exam: Patient is awake, alert, and oriented 3 Vital signs stable Good chest excursion with deep inspiration and expiration Examination of lumbar spine reveals skin is intact with no abrasions, lacerati ons, or bruises; no erythema, purulence or signs of infection Patient is able to perform some dorsiflexion, plantarflexion, and extensor hallucis longus bilaterally but does have some difficulty Patient has generalized weakness and difficulty with active range of motion throughout the bilateral lower extremities with greater weakness on the right and the left Patellar reflex 2+ bilaterally and Achilles reflexes 0+ bilaterally No lower extremity hyperreflexia bilaterally Patient does have some contracture at the knees bilaterally and is unable to perform full knee flexion bilaterally No signs or symptoms of DVT; no calf pain No pain with internal and external rotation of the hips bilaterally Neurovascularly intact Results - Labs Labs: H & H 05/19/24 05/20/24 05/21/24 Range/Units 15:22 04:39 10:25 Hgb 14.8 14.0 13.0 (13.0-17.5) gm/dL Hct 44.8 41.5 39.0 (39.0-53.0) % Coagulation 05/19/24 Range/Units 15:22 INR 1.0 (<1.2) Result Diagrams: 05/21/24 10:25 05/21/24 10:25 Assessment and Plan Assessment: Assessment: Generalized bilateral lower extremity weakness greater on the left Inability to stand independently over the past 2 months Inability to ambulate Progressive weakness over the past 6 months Urinary retention Unable to pass a urinary catheter due to urethral false passage Recent suprapubic catheter placement Family history of Loida Gehrig's disease Hypertension Hyperlipidemia Rheumatoid arthritis (1) Generalized weakness Current Visit: Yes Status: Acute Code(s): R53.1 - WEAKNESS SNOMED Code(s): 73533680 (2) Unable to stand up Current Visit: Yes Status: Acute Code(s): R68.89 - OTHER GENERAL SYMPTOMS AND SIGNS SNOMED Code(s): 924337011 (3) Hypertension Current Visit: Yes Status: Acute Code(s): I10 - ESSENTIAL (PRIMARY) HYPERTENSION SNOMED Code(s): 99585666 (4) Hyperlipidemia Current Visit: Yes Status: Acute Code(s): E78.5 - HYPERLIPIDEMIA, UNSPECIFIED SNOMED Code(s): 07252548 (5) Rheumatoid arthritis Current Visit: Yes Status: Acute Code(s): M06.9 - RHEUMATOID ARTHRITIS, UNSPECIFIED SNOMED Code(s): 45291545 (6) Suprapubic catheter Current Visit: Yes Status: Acute Code(s): Z93.59 - OTHER CYSTOSTOMY STATUS SNOMED Code(s): 676971317 (7) Family history of Loida Gehrig's disease Current Visit: Yes Status: Acute Code(s): Z82.0 - FAMILY HISTORY OF EPILEPSY AND OTH DIS OF THE NERVOUS SYS SNOMED Code(s): 934049347 (8) Retention of urine, unspecified Current Visit: Yes Status: Acute Code(s): R33.9 - RETENTION OF URINE, UNSPECIFIED SNOMED Code(s): 865455485 (9) Unable to ambulate Current Visit: Yes Status: Acute Code(s): R26.2 - DIFFICULTY IN WALKING, NOT ELSEWHERE CLASSIFIED SNOMED Code(s): 776343230 Plan: Plan: 1. Patient admits to progressive weakness over the past 6 months. He states he has been generally getting weaker with his lower extremities. He has not been able to stand over the past 2 months. He does not experience any low back pain. He denies any lower extremity radiculopathy symptoms. He has some calf soreness after wearing different shoes but admits he has not been ambulatory for months. He was able to stand at the bedside approximately 2 months ago. He states he has not been able to ambulate at all over the past 2 months. He does have some constriction at his knees bilaterally and is unable to fully extend his knees bilaterally but does not have any pain at his knees. He is able to perform some active range of motion of his lower extremities but is generally weaker throughout range of motion. He does not have any pain with internal and external rotation of his hips bilaterally. He has no pain with palpation over his lumbar spine. He does not have any significant hyperreflexia. We do not currently have any lumbar imaging. He denies any injuries. It is difficult to determine the cause of the patient's progressive and ongoing weakness whether it is stemming from his lumbar spine or another neurological cause. He does not experience any low back pain or radiculopathy symptoms. He does have lower extremity weakness but it is more generalized greater on the right than the left. He also has some reduced activity with his right upper extremity which she states has been ongoing over the past year due to rheumatoid arthritis. Patient states his mother had Loida Gehrig's disease. He feels his symptoms have slowly been progressing. Currently, consultation has been placed with neurology. I would like neur ology's input before ordering further imaging. We could obtain lumbar x-ray imaging for overall alignment and degenerative changes at his lumbar spine, but would need further imaging with MRI imaging to further assess his spinal cord, nerves, and intervertebral discs. He does not have low back pain or lower extremity radiculopathy. He does not have a specific lower extremity weakness but has generalized weakness in his bilateral lower extremities with the right greater than the left. Currently, patient will be discussed in detail with Dr. Miguel A Bradley before ordering further imaging or adjusting our plan of care. After further discussion with him, we may adjust our plan of care according to his recommendations. 2. Patient waiting for consultation with neurology. 3. Patient will continue be seen and examined by medicine for his other medical diagnoses. 4. Patient will continue to be seen by urology following suprapubic catheter placement The patient is seen and examined at bedside. He is somewhat of a limited historian where he had stated earlier that he had not been out of bed for a year his descriptions have been largely inconsistent. It is questionable as to whether he has been able to stand 2 months ago or even 6 months ago on his own. He certainly has weakness at his bilateral lower extremities with increased tone and some hyperreflexia and positive clonus at his bilateral lower extremities. His right upper extremity has profound weakness. His left upper extremity has limited range and increased tone through his upper extremity and hand. He has positive clonus at his bilateral upper extremities as well. It is difficult to determine the source of the patient's issues but he does have upper motor neuron signs. He has chronic weakness and inability to ambulate Bilateral lower extremity weakness with severe weakness at the right upper e xtremity as well Limited motion and weakness of left upper extremity The patient has some central neurologic issue that is difficult to specify at this point. From a spine standpoint it is possible that he may be experiencing some myelopathy stemming from his cervical cord given his right upper extremity weakness and global weakness overall. I think it can be worthwhile to obtain further imaging of his cervical spine and an MRI would be best to evaluate the cord. Neurology has been consulted to see him as well and I think that is appropriate to determine if there is significant central neurologic issue or further necessary workup in this regard. He should also continue his medical and neurologic workup and management Time with Patient: Greater than 30 (Including obtaining history, physical examination, reviewing of imaging, and dictation.)
--- NOTE | 2024-05-27 15:19 | P.PN ---
Subjective Progress Note Date: 05/27/24 Patient was assumed from Dr. Navarro today. Patient initially came in for urinary retention did have a suprapubic catheter placed by Dr. Whitt and is urinating without difficulty now. Patient family has concerns of increased weakness since March does have a family history of ALS. Patient also reports concern that he he may have ruptured his Achilles tendons at some point. Due to the weakness he was eval by physical therapy and has been recommended for subacute rehab does require insurance authorization and he will not be able to be discharged likely until Thursday. Orthopedics was consulted and also neurology. Review of Systems Constitutional: Denied any fatigue denied any fever. Cardio vascular: denied any chest pain, palpitations Gastrointestinal: denied any nausea, vomiting, diarrhea Pulmonary: Denied any shortness of breath cough Neurologic denied any new focal deficits reports weakness bilateral lower extremities. All inpatient medications were reviewed and appropriate changes in these medications as dictated in the interval history and assessment and plan. PHYSICAL EXAMINATION: GENERAL: The patient is alert and oriented x2-3, not in any acute distress. Well developed, well nourished. HEENT: Pupils are round and equally reacting to light. EOMI. No scleral icterus. No conjunctival pallor. Normocephalic, atraumatic. No pharyngeal erythema. No thyromegaly. CARDIOVASCULAR: S1 and S2 present. No murmurs, rubs, or gallops. PULMONARY: Chest is clear to auscultation, no wheezing or crackles. ABDOMEN: Soft, nontender, nondistended, normoactive bowel sounds. No palpable organomegaly. Suprapubic catheter present no redness or drainage around incision. MUSCULOSKELETAL: No joint swelling or deformity. EXTREMITIES: No cyanosis, clubbing, or pedal edema. NEUROLOGICAL: Gross neurological examination did not reveal any focal deficits. Weakness bilateral lower extremities SKIN: No rashes. Groin and perineal/ excoriation and maceration Assessment General debility and weakness secondary to advanced age and multiple comorbidities Bilateral lower extremity weakness for evaluation Altered mental status due to acute metabolic encephalopathy / need to rule out acute stroke Urinary retention requiring a suprapubic catheter secondary to a false urethral passage Mild protein calorie malnutrition Maceration of the groin and perineum Family history of ALS with progressive weakness in this patient over the last 2 to 6 months Hypertension Hyperlipidemia Rheumatoid arthritis history Chronic nicotine use COPD with no acute exacerbation GI prophylaxis DVT prophylaxis Lovenox Full Code Plan Brain CT without contrast ordered rule out stroke/ischemic event Orthopedics and neurology consultation PT/OT consultation have recommended subacute rehab and patient is currently pending accepting facility and insurance authorization. Monitor electrolytes repeat BMP/CBC Continue with suprapubic catheter and will continue on discharge. Monitor output. Continue zinc barrier paste to the groin maceration. The impression and plan of care has been dictated by Helene Rodrigues, Nurse Practitioner as directed. Dr. Winston MD I have performed a history and physical examination and medical decision making of this patient, discussed the same with the dictator, and agree with the dictators assessment and plan as written, documented as a scribe. Based on total visit time, I have performed more than 50% of this visit. Objective - Vital Signs Vital signs: Vital Signs Temp 97.3 F L 05/27/24 14:16 Pulse 93 05/27/24 14:16 Resp 14 05/27/24 14:17 BP 132/72 05/27/24 14:16 Pulse Ox 95 05/27/24 12:03 FiO2 Intake & Output 05/26/24 05/27/24 05/27/24 18:59 06:59 18:59 Intake Total 660 1200 Output Total 2100 1000 250 Balance -1440 200 -250 Weight 77.111 kg Intake: Oral 660 1200 Output: Urine 2100 1000 250 Other: Voiding Method Diaper Diaper Indwelling Catheter External Catheter External Catheter # Voids 1 2 - Labs CBC & Chem 7: 05/21/24 10:25 05/21/24 10:25 Assessment and Plan Time with Patient: Less than 30
--- NOTE | 2024-05-27 17:51 | CT ---
EXAMINATION TYPE: CT brain wo con DATE OF EXAM: 05/27/2024 COMPARISON: None INDICATION: AMS DLP: 1098.8 mGycm, Automated exposure control for dose reduction was used. CONTRAST: None CT of the brain is performed utilizing 3 mm thick sections through the posterior fossa and 3 mm thick sections through the remaining calvarium. Study is performed within 24 hours of arrival to the hosp [facility]. No abnormal hyperdensity is present to suggest an acute intracranial hemorrhage. No mass lesion is evident. No acute infarcts are evident. Ventricles and sulci are appropriate for the patient age. Paranasal sinuses and mastoid air cells within the [id number] are clear. IMPRESSION: 1. No acute intracranial process. Follow up MRI can be performed as clinically indicated. [facility], Workstation: [facility], 05/27/2024 5:49 PM
--- NOTE | 2024-05-28 09:30 | P.PN ---
Subjective Progress Note Date: 05/28/24 Patient is a pleasant 73-year-old male who is seen examined the bedside for further valuation of his lumbar spine. Patient has been experiencing progressive weakness over the past several months and we were consulted in this regard. Patient states he does not experience any low back pain. He does not have any pain radiating down his bilateral lower extremities. He does admit to generalized weakness in his bilateral lower extremities which has been worsening over the past several months. He states approximately 6 months ago he was able to ambulate better. He states 2 months ago he was able to stand at the bedside. He is no longer able to ambulate independently. He does not have any signific ant pain. He states he did try some different shoes that may have caused some pain in his calfs. He does admit to some calf pain bilaterally but no specific radicular pattern. He does have difficulty extending his knees bilaterally. He states he is known to have rheumatoid arthritis and does have some difficulty with this. He does have some changes in his hands bilaterally. He states he has limited range of motion and activity with his right upper extremity due to his rheumatoid arthritis over the past year. He denies any recent injuries. He does not have any imaging performed of his lumbar spine. Consultation has been placed with neurology for his weakness. Nursing states patient has a family history of Loida Gehrig's disease. Patient states his mother had Loida Gehrig's disease. Patient was having urinary retention. They were unable to pass a urinary catheter due to urethral false passage. A suprapubic catheter was placed by Dr. Whitt. Patient continues to be seen by medicine. He is planning for discharge to a rehabilitation facility at the time of discharge. Patient does have a legal guardian. 05/28/2024 progress note: I spoke with nursing staff this morning, who state no acute events overnight, patient has been able to ambulate to get up with assistance. Patient will be going for MRI. Objective - Vital Signs Vital signs: Vital Signs Temp 97.4 F L 05/28/24 07:35 Pulse 83 05/28/24 07:35 Resp 14 05/28/24 07:35 BP 146/81 05/28/24 07:35 Pulse Ox 96 05/28/24 07:35 FiO2 Intake & Output 05/27/24 05/28/24 05/28/24 18:59 06:59 18:59 Intake Total 1620 Output Total 900 2000 Balance -900 -380 Intake: Oral 1620 Output: Urine 900 1999 Other: Voiding Method Indwelling Catheter Diaper Indwelling Catheter - Exam Patient is awake, alert, and oriented 3 Patient is able to perform some dorsiflexion, plantarflexion, and extensor hallucis longus bilaterally but does have some difficulty. Patient has generalized weakness and difficulty with active range of motion throughout the bilateral lower extremities with greater weakness on the right and the left. Patient does have some contracture at the knees bilaterally and is unable to perform full knee flexion bilaterally No signs or symptoms of DVT; no calf pain No pain with internal and external rotation of the hips bilaterally Neurovascularly intact - Labs CBC & Chem 7: 05/21/24 10:25 05/21/24 10:25 Assessment and Plan Assessment: Generalized bilateral lower extremity weakness greater on the left Inability to stand independently over the past 2 months Inability to ambulate Progressive weakness over the past 6 months Urinary retention Unable to pass a urinary catheter due to urethral false passage Recent suprapubic catheter placement Family history of Loida Gehrig's disease Hypertension Hyperlipidemia Rheumatoid arthritis Plan: Plan: Dr. Bradley has ordered a MRI cervical spine without contrast that patient should be able to get done today. 2. Patient waiting for consultation with neurology. 3. Patient will continue be seen and examined by medicine for his other medical diagnoses. 4. Patient will continue to be seen by urology following suprapubic catheter placement
[2024-05-28] MEDS: PANTOPRAZOLE 40 MG TABLET PO SCH (09:55)
[2024-05-28 10:12] LABS: HCT 37.6 % (39.6-50.0); HGB 12.6 g/dL (13.0-17.0); MCH 29.4 pg (27.0-32.0); MCHC 33.5 g/dL (32.0-37.0); MCV 87.9 FL (80.0-97.0); NRBC Per 100 WBC 0 X 10*3/uL (0.00-0.01); Platelet Count 197 X 10*3/uL (140-440); RBC 4.28 X 10*6/uL (4.40-5.60); RDW 12.3 % (11.5-14.5); WBC 7.36 X 10*3/uL (4.50-10.00)
[2024-05-28 10:33] LABS: BUN/Creat Ratio 15.86 Ratio (12.00-20.00); Blood Urea Nitrogen 11.1 mg/dL (9.0-27.0); Calcium 8.9 mg/dL (8.7-10.3); Chloride 102 mmol/L (96-109); Glucose 92 mg/dL (70-110); Magnesium 1.9 mg/dL (1.5-2.4); Potassium 4.1 mmol/L (3.5-5.5); Sodium 136 mmol/L (135-145)
[2024-05-28 11:28] LABS: Basophils # (A) 0.05 X 10*3/uL (0.00-0.10); Basophils % (A) 0.7 %; Eosinophils # (A) 0.21 X 10*3/uL (0.04-0.35); Eosinophils % (A) 2.9 %; Lymphocytes # (A) 1.27 X 10*3/uL (0.90-5.00); Lymphocytes % (A) 17.3 %; Monocytes # (A) 1.02 X 10*3/uL (0.20-1.00); Monocytes % (A) 13.9 %; Neutrophils # (A) 4.78 X 10*3/uL (1.80-7.70); Neutrophils % (A) 64.8 %; RBC Morphology Normal (Normal)
--- NOTE | 2024-05-28 12:00 | P.CNNES ---
History of Present Illness Consult date: 05/27/24 Requesting physician: Gerardo Navarro Reason for Consult: weakness since Aug Family history of ADAM GEHRIGS, Pt unable to get History of Present Illness: Patient is a 73-year-old right-handed male came to the hospital by ambulance on 05/19/2024. Patient is a poor historian, states that he has difficulty with walking because of problem with the Achilles tendon. He states he cannot stand up. He states he lives in an apartment some roommate. He has been using walker for about 8 months to a year. Prior to that he used to walk by himself. On asking about his children, he states "I do not know", then said "at least 3 children". Patient states that his left hand is more mobile than the right side. As per EMS flowsheet, patient at baseline is alert and orient x 4. Patient complaining of loss of bladder and bowel control for 1 month. Patient denied any pain or discomfort or difficulty breathing. Patient was covered in urine and fecal matter. Patient is weak, unable to stand or ambulate. Patient receives Meals on Wheels brings him food. Vital signs at the scene was blood pressure 157/112, pulse rate 120, respiration 16 saturation 96%. Patient's blood test shows normal CBC, PT PTT, comprehensive metabolic panel is normal. TSH normal. UA shows large amount of leukocyte Estrace and 26 WBCs. Coronavirus PCR negative. EKG showed sinus rhythm. Chest x-ray showed COPD. CT of the chest showed COPD with moderate emphysema and evidence of prior granulomatous disease. Pulmonary nodules. No pneumothorax. Patient underwent urethroscopy, insertion of suprapubic cystostomy tube because of urinary retention and urethral false passage on 05/20/2024. Neurology was consulted for weakness and family history of Adam Gehrig's disease. Patient states his mother was diagnosed with Graves' disease in 2000. She was told that she has only 3 years to live and she in 2019. Patient states he has rheumatoid arthritis. Patient states he has not seen a doctor for 18 months. Patient states his left hand is more mobile than the right side. Patient not able to provide any optimal history. Patient had a CT head, which revealed no acute intracranial process. I p ersonally reviewed CT head, agree with the findings. Review of Systems All review of systems reviewed, and mentioned in the HPI pertinent positive and negative. Past Medical History Past Medical History: Hyperlipidemia, Hypertension, Rheumatoid Arthritis (RA), Thyroid Disorder History of Any Multi-Drug Resistant Organisms: None Reported Past Surgical History: Hernia Repair Past Anesthesia/Blood Transfusion Reactions: No Reported Reaction Past Psychological History: No Psychological Hx Reported Smoking Status: Former smoker Past Alcohol Use History: None Reported Past Drug Use History: None Reported Medications and Allergies Home Medications Medication Instructions Recorded Confirmed Type No Known Home Medications 05/19/24 05/19/24 History Allergies Allergy/AdvReac Type Severity Reaction Status Date / Time No Known Allergies Allergy Verified 05/19/24 15:06 Physical Examination - Vital Signs Vital Signs: Vital Signs Temp Pulse Resp BP BP Pulse Ox 05/27/24 18:43 98.8 F 81 146/83 05/27/24 14:17 14 05/27/24 14:16 97.3 F L 93 14 132/72 05/27/24 12:03 97.9 F 80 16 124/76 95 05/27/24 07:35 98.0 F 70 16 132/76 97 05/27/24 01:15 97.9 F 81 16 149/66 98 05/26/24 20:00 98.8 F 73 16 132/78 94 L Intake and Output 05/27/24 05/27/24 05/27/24 06:59 14:59 22:59 Intake Total 1200 Output Total 1000 250 650 Balance 200 -250 -650 Intake: Oral 1200 Output: Urine 1000 250 650 Other: Voiding Method Indwelling Catheter # Voids 2 Patient is an elderly male, in no acute distress. Patient is alert awake oriented to time place and person. He knows it is May and the year is 2023 and that he is in the hospital in [facility]. He knows name of the current president Mr. Wesley. Speech and language functions are normal. Patient can name and repeat very well. No aphasia or dysarthria. Attention, concentration is intact and fund of knowledge is probably limited. Patient not a good historian. On cranial nerve examination, pupils are equal, round and reacting to light, visual felix are full on confrontation, with no neglect on double simultaneous stimulation. Extraocular muscles are intact with no nystagmus. Face is symmetric, tongue protrudes to the midline. Palatal elevation and sensation normal, hearing and shoulder shrug normal, facial sensation normal. 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 Deep tendon reflexes are (right/left) biceps 2+/2+3, brachioradialis 2+/2+3, knees 3+/3+, plantars are upgoing bilaterally. Sensory to touch is equal with no neglect on double simultaneous stimulation. Cerebellar function showed no ataxia for [id number] testing. No ataxia for [id number] testing on either side. Tone is normal and bulk of muscles is slightly decreased. No obvious fasciculations noted. Gait deferred.. On general examination, there is no carotid bruit or murmur, S1-S2 audible. Chest is clear on consultation. Abdomen is soft nontender. No organomegaly, bowel sounds present. Peripheral pulses are present. No peripheral edema. Results - Laboratory Findings CBC and BMP: 05/28/24 05:10 05/28/24 05:10 Abnormal Lab Findings: Abnormal Labs 05/19/24 05/19/24 05/19/24 15:22 15:22 15:22 Plt Count 141 L MPV Lymphocytes # 0.8 L APTT 21.1 L Sodium 136 L Potassium 5.3 H Anion Gap Total Bilirubin 1.4 H Albumin/Globulin Ratio Urine Blood Ur Leukocyte Esterase Urine RBC Urine WBC Urine Mucus 05/20/24 05/20/24 05/20/24 04:39 04:39 18:04 Plt Count 136 L MPV 12.9 H Lymphocytes # APTT Sodium Potassium Anion Gap 13.40 H Total Bilirubin Albumin/Globulin Ratio 1.31 L Urine Blood Moderate H Ur Leukocyte Esterase Large H Urine RBC 82 H Urine WBC 26 H Urine Mucus Rare H 05/21/24 05/21/24 10:25 10:25 Plt Count 119 L MPV Lymphocytes # 0.6 L APTT Sodium 135 L Potassium Anion Gap Total Bilirubin Albumin/Globulin Ratio Urine Blood Ur Leukocyte Esterase Urine RBC Urine WBC Urine Mucus Assessment and Plan Assessment: * 73-year-old male admitted with progressive difficulty with walking and muscle weakness, particularly since March 2024. Examination revealed asymmetric weakness, right upper extremity more than the left upper and some weakness in the proximal muscles of the lower limbs. Patient has brisk reflexes and bilateral Babinski. No obvious fasciculations noted. Rule out cervical myelopathy. Motor neuron disease also in the differential. * Urinary retention, rule out spinal cord pathology * Family history of Adam Gehrig's disease * Hypertension * Hyperlipidemia * Rheumatoid arthritis * Rule out cognitive impairment/dementia. Plan: * Agree with checking MRI of the cervical spine rule out spinal stenosis. * Check B12, folate, MMA, hemoglobin A1c, CK, rheumatoid factor. TSH is normal 2.39. * UA shows large amount of leukocyte esterase and 26 WBCs, rule out UTI. * Patient would need EMG nerve conduction of all 4 extremities as an outpatient. * EEG because of altered mental status. * DVT prophylaxis: Patient on Lovenox 30 mg subcu daily * We will try to obtain collateral history from patient's guardian. * Neurology will follow. Thank you for the consult. Addendum: I spoke to patient's public guardian on the phone, who mentioned that they became guardian in February 2024 because of notification for Adult Protective Services. He was living in deplorable condition with self-neglect. He was noted to be bedbound. Self-neglect has been going on for 6 months but progressively getting worse. He was not getting around well. He has steady decline. He started defecating and urinating on himself. They mentioned that t here is no family listed. He is a . No diagnosis of dementia.
--- NOTE | 2024-05-28 14:17 | P.PN ---
Subjective Progress Note Date: 05/28/24 Patient was assumed from Dr. Navarro today. Patient initially came in for urinary retention did have a suprapubic catheter placed by Dr. Whitt and is urinating without difficulty now. Patient family has concerns of increased weakness since March does have a family history of ALS. Patient also reports concern that he he may have ruptured his Achilles tendons at some point. Due to the weakness he was eval by physical therapy and has been recommended for subacute rehab does require insurance authorization and he will not be able to be discharged likely until Thursday. Orthopedics was consulted and also neurology. 05/28/2024 Patient is eval today in follow-up in the medical floor. He has significant weakness in his bilateral lower extremities. His upper extremities shows weakness right greater than left. He states has a difficult time fully extending his legs and lying flat. He was evaluated orthopedics recommending a cervical spine MRI which will be completed today. Suprapubic catheter in place and functioning well he has adequate urine output. Social work is following for discharge planning and has placed multiple referrals. Review of Systems Constitutional: Denied any fatigue denied any fever. Cardio vascular: denied any chest pain, palpitations Gastrointestinal: denied any nausea, vomiting, diarrhea Pulmonary: Denied any shortness of breath cough Neurologic denied any new focal deficits reports weakness bilateral lower extremities. All inpatient medications were reviewed and appropriate changes in these medications as dictated in the interval history and assessment and plan. PHYSICAL EXAMINATION: GENERAL: The patient is alert and oriented x2-3, not in any acute distress. Well developed, well nourished. HEENT: Pupils are round and equally reacting to light. EOMI. No scleral icterus. No conjunctival pallor. Normocephalic, atraumatic. No pharyngeal erythema. No thyromegaly. CARDIOVASCULAR: S1 and S2 present. No murmurs, rubs, or gallops. PULMONARY: Chest is clear to auscultation, no wheezing or crackles. ABDOMEN: Soft, nontender, nondistended, normoactive bowel sounds. No palpable organomegaly. Suprapubic catheter present no redness or drainage around incision. MUSCULOSKELETAL: No joint swelling or deformity. EXTREMITIES: No cyanosis, clubbing, or pedal edema. NEUROLOGICAL: Gross neurological examination did not reveal any focal deficits. Weakness bilateral lower extremities SKIN: No rashes. Groin and perineal/ excoriation and maceration Assessment General debility and weakness secondary to advanced age and multiple comorbidities Bilateral lower extremity weakness for evaluation Altered mental status due to acute metabolic encephalopathy / need to rule out acute stroke Urinary retention requiring a suprapubic catheter secondary to a false urethral passage Mild protein calorie malnutrition Maceration of the groin and perineum Family history of Loida Gehrig's with progressive weakness in this patient over the last 2 to 6 months Hypertension Hyperlipidemia Rheumatoid arthritis history Chronic nicotine use COPD with no acute exacerbation GI prophylaxis DVT prophylaxis Lovenox Full Code Plan Orthopedics and neurology consultation He is scheduled for cervical MRI today to rule out spinal stenosis. Patient will need EMG testing on all 4 extremities on an outpatient basis. Monitor electrolytes repeat BMP/CBC Continue with suprapubic catheter and will continue on discharge. Monitor output. Continue zinc barrier paste to the groin maceration. PT/OT consultation have recommended subacute rehab and patient is currently pending accepting facility and insurance authorization. APS is open with this patient and patient has a legal guardian. This is due to living conditions and patient know essentially bed bound. The impression and plan of care has been dictated by Helene Rodrigues, Nurse Practitioner as directed. Dr. Winston MD I have performed a history and physical examination and medical decision making of this patient, discussed the same with the dictator, and agree with the dictators assessment and plan as written, documented as a scribe. Based on total visit time, I have performed more than 50% of this visit. Objective - Vital Signs Vital signs: Vital Signs Temp 97.8 F 05/28/24 12:05 Pulse 90 05/28/24 12:05 Resp 16 05/28/24 12:05 BP 127/74 05/28/24 12:05 Pulse Ox 95 05/28/24 12:05 FiO2 Intake & Output 05/27/24 05/28/24 05/28/24 18:59 06:59 18:59 Intake Total 1620 Output Total 900 1999 550 Balance -900 -380 -550 Intake: Oral 1620 Output: Urine 900 1999 550 Other: Voiding Method Indwelling Catheter Diaper Diaper Indwelling Catheter Indwelling Catheter - Labs CBC & Chem 7: 05/28/24 05:10 05/28/24 05:10 Labs: Abnormal Lab Results - Last 24 Hours (Table) 05/28/24 Range/Units 05:10 RBC 4.28 L (4.40-5.60) X 10*6/uL Hgb 12.6 L (13.0-17.0) g/dL Hct 37.6 L (39.6-50.0) % Monocytes # 1.02 H (0.20-1.00) X 10*3/uL Assessment and Plan Time with Patient: Less than 30
--- NOTE | 2024-05-28 15:15 | MR ---
EXAMINATION TYPE: MR cervical spine wo con DATE OF EXAM: 05/28/2024 2:00 PM CLINICAL INDICATION: Male, 73 years old with history of Upper and lower extremity weakness, increased tone;, Upper and lower extremity weakness. COMPARISON: None. TECHNIQUE: Multi planar, multi sequence imaging was performed utilizing: T1-weighted, T2-weighted, an d turbo inversion recovery imaging of the cervical spine. IV Contrast: cc (none if empty) FINDINGS: Alignment: The cervical vertebral bodies have preserved heights. Alignment is within normal limits gi calin patient positioning. Bones: Minimal Osteophytes and disc space narrowing throughout the cervical spine. Cord: The spinal cord is unremarkable with regards to their signal intensity and morphology. Discs: Intervertebral disc signal is maintained. C2-C3: No significant disc pathology. The spinal canal is patent. No neural foraminal stenosis. C3-C4: No significant disc pathology. The spinal canal is patent. No neural foraminal stenosis. C4-C5: No significant disc pathology. The spinal canal is patent. No neural foraminal stenosis. C5-C6: No significant disc pathology. The spinal canal is patent. Bilateral facet and uncovertebral joint arthropathy are present with mild left neural foraminal stenosis. The right neural foramen is p atent. C6-C7: No significant disc pathology. The spinal canal is patent. No neural foraminal stenosis. C7-T1: No significant disc pathology. The spinal canal is patent. No neural foraminal stenosis. Other: None. IMPRESSION: 1. No evidence for disc herniation or significant spinal canal stenosis. 2. Mild disc degeneration with associated osteoarthritic changes. [facility], , 05/28/2024 3:12 PM
[2024-05-28 20:49] LABS: Creatine Kinase 384 U/L (35-257)
[2024-05-28 20:54] LABS: Rheumatoid Factor, Qnt <15 IU/mL (0-15); Vitamin B12 <150.0 pg/mL (200.0-944.0)
[2024-05-29] MEDS: ENOXAPARIN 40 MG/0.4 ML SYRINGE SQ SCH (09:37)
--- NOTE | 2024-05-29 11:16 | P.PN ---
Subjective Progress Note Date: 05/28/24 Patient was seen for a follow-up. Patient is laying in the bed. Offers no new complaints. I spoke to patient's public guardian on the phone, who mentioned that they became guardian in February 2024 because of notification for Adult Protective Services. He was living in deplorable condition with self-neglect. He was noted to be bedbound. Self-neglect has been going on for 6 months but progressively getting worse. He was not getting around well. He has steady decline. He started defecating and urinating on himself. They mentioned that there is no family listed. He is a . No diagnosis of dementia. Objective - Vital Signs Vital signs: Vital Signs Temp 97.8 F 05/28/24 12:05 Pulse 90 05/28/24 12:05 Resp 16 05/28/24 12:05 BP 127/74 05/28/24 12:05 Pulse Ox 95 05/28/24 12:05 FiO2 Intake & Output 05/27/24 05/28/24 05/28/24 18:59 06:59 18:59 Intake Total 1620 Output Total 900 2000 1100 Balance -900 -380 -1100 Intake: Oral 1620 Output: Urine 900 2000 1100 Other: Voiding Method Indwelling Catheter Diaper Diaper Indwelling Catheter Indwelling Catheter - Exam Patient's right arm is spastic, holding over his chest. He states that he cannot straighten it. Patient's examination is essentially unchanged. I did not notice any fasciculations. - Labs CBC & Chem 7: 05/28/24 05:10 05/28/24 05:10 Labs: Abnormal Lab Results - Last 24 Hours (Table) 05/28/24 Range/Units 05:10 RBC 4.28 L (4.40-5.60) X 10*6/uL Hgb 12.6 L (13.0-17.0) g/dL Hct 37.6 L (39.6-50.0) % Monocytes # 1.02 H (0.20-1.00) X 10*3/uL Assessment and Plan Assessment: * 73-year-old male admitted with progressive difficulty with walking and muscle weakness, particularly since March 2024. Examination revealed asymmetric weakness, right upper extremity more than the left upper and some weakness in the proximal muscles of the lower limbs. Patient has brisk reflexes and bilateral Babinski. No obvious fasciculations noted. Cervical myelopathy ruled out. Motor neuron disease also in the differential. * Urinary retention, rule out spinal cord pathology * Vitamin B12 deficiency, severe, with levels <150. 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 * Family history of Loida Gehrig's disease * Hypertension * Hyperlipidemia * Rheumatoid arthritis * Rule out cognitive impairment/dementia. * Bilateral subdural hygroma, with atrophy of the parietal lobes bilaterally. Plan: * MRI of the cervical spine revealed no evidence for disc herniation or significant spinal canal stenosis. Mild disc degeneration with associated osteoarthritic changes. I personally reviewed MRI agree with the findings. No significant stenosis. * B12 < 150, folate 6.9, MMA, hemoglobin A1c 5.3, CK 384, rheumatoid factor <15. TSH is normal 2.39. * Patient has severe vitamin B12 deficiency. This may be the cause of myelopathy. We will start B12 replacement. * UA shows large amount of leukocyte esterase and 26 WBCs, rule out UTI. * Patient would need EMG nerve conduction of all 4 extremities as an outpatient. * EEG because of altered mental status. * Patient CT head revealed evidence of significant atrophy of bilateral parietal lobes. There is also overlying subdural hygromas over bilateral parietal region. This may be related to compensatory mechanism from bilateral parietal lobe atrophy, which likely is related to his significant dementia. * We will check MRI of the brain. * DVT prophylaxis: Patient on Lovenox 30 mg subcu daily * Dr. Jewel Gay to start neurology service from Thursday.
--- NOTE | 2024-05-29 11:57 | P.PN ---
Subjective Progress Note Date: 05/29/24 Patient is a pleasant 73-year-old male who is seen examined the bedside for further valuation of his lumbar spine. Patient has been experiencing progressive weakness over the past several months and we were consulted in this regard. Patient states he does not experience any low back pain. He does not have any pain radiating down his bilateral lower extremities. He does admit to generalized weakness in his bilateral lower extremities which has been worsening over the past several months. He states approximately 6 months ago he was able to ambulate better. He states 2 months ago he was able to stand at the bedside. He is no longer able to ambulate independently. He does not have any signific ant pain. He states he did try some different shoes that may have caused some pain in his calfs. He does admit to some calf pain bilaterally but no specific radicular pattern. He does have difficulty extending his knees bilaterally. He states he is known to have rheumatoid arthritis and does have some difficulty with this. He does have some changes in his hands bilaterally. He states he has limited range of motion and activity with his right upper extremity due to his rheumatoid arthritis over the past year. He denies any recent injuries. He does not have any imaging performed of his lumbar spine. Consultation has been placed with neurology for his weakness. Nursing states patient has a family history of Loida Gehrig's disease. Patient states his mother had Loida Gehrig's disease. Patient was having urinary retention. They were unable to pass a urinary catheter due to urethral false passage. A suprapubic catheter was placed by Dr. Whitt. Patient continues to be seen by medicine. He is planning for discharge to a rehabilitation facility at the time of discharge. Patient does have a legal guardian. 05/28/2024 progress note: I spoke with nursing staff this morning, who state no acute events overnight, patient has been able to ambulate to get up with assistance. Patient will be going for MRI. 05/29/2024 progress note: Patient was examined at bedside today. Patient denies pain in the low back. Patient states they had physical therapy and were able to ambulate to the chair and back to bed with assistance. Patient had MRIs yesterday afternoon. Objective - Vital Signs Vital signs: Vital Signs Temp 97.9 F 05/29/24 08:00 Pulse 86 05/29/24 08:00 Resp 16 05/29/24 08:00 BP 147/79 05/29/24 08:00 Pulse Ox 95 05/29/24 08:00 FiO2 Intake & Output 05/28/24 05/29/24 05/29/24 18:59 06:59 18:59 Intake Total 1080 Output Total 1450 1300 Balance -1450 -220 Intake: Oral 1080 Output: Urine 1450 1300 Other: Voiding Method Diaper Diaper Indwelling Catheter Indwelling Catheter - Exam Patient is awake, alert, and oriented 3 Patient is able to perform some dorsiflexion, plantarflexion, and extensor hallucis longus bilaterally but does have some difficulty. Patient has generalized weakness and difficulty with active range of motion throughout the bilateral lower extremities with greater weakness on the right and the left. Patient does have some contracture at the knees bilaterally and is unable to perform full knee flexion bilaterally No signs or symptoms of DVT; no calf pain No pain with internal and external rotation of the hips bilaterally Neurovascularly intact - Labs CBC & Chem 7: 05/28/24 05:10 05/28/24 05:10 Labs: Abnormal Lab Results - Last 24 Hours (Table) 05/28/24 05/28/24 Range/Units 05:10 05:10 RBC 4.28 L (4.40-5.60) X 10*6/uL Hgb 12.6 L (13.0-17.0) g/dL Hct 37.6 L (39.6-50.0) % Monocytes # 1.02 H (0.20-1.00) X 10*3/uL Creatine Kinase 384 H (35-257) U/L Vitamin B12 <150.0 L (200.0-944.0) pg/mL Assessment and Plan Assessment: Generalized bilateral lower extremity weakness greater on the left Inability to stand independently over the past 2 months Inability to ambulate Progressive weakness over the past 6 months Urinary retention Unable to pass a urinary catheter due to urethral false passage Recent suprapubic catheter placement Family history of Loida Gehrig's disease Hypertension Hyperlipidemia Rheumatoid arthritis Plan: Plan: 05/28/2024 MRI cervical spine without contrast report impression stated 1. No evidence for disc herniation or significant spinal canal stenosis. 2. Mild disc degeneration with associated osteoarthritic changes. At this time I do not believe the cervical spine is the cause of his weakness or his inability to ambulate. He is not a surgical candidate for spine surgery intervention, he should follow up with Dr. Bradley as an outpatient as needed. 2. Patient waiting for consultation with neurology. 3. Patient will continue be seen and examined by medicine for his other medical diagnoses. 4. Patient will continue to be seen by urology following suprapubic catheter placement
[2024-05-29] MEDS: CYANOCOBALAMIN 1,000 MCG/ML 1 ML VIAL IM SCH (12:33)
--- NOTE | 2024-05-30 04:31 | P.PN ---
Subjective Progress Note Date: 05/29/24 Patient was assumed from Dr. Navarro today. Patient initially came in for urinary retention did have a suprapubic catheter placed by Dr. Whitt and is urinating without difficulty now. Patient family has concerns of increased weakness since March does have a family history of ALS. Patient also reports concern that he he may have ruptured his Achilles tendons at some point. Due to the weakness he was eval by physical therapy and has been recommended for subacute rehab does require insurance authorization and he will not be able to be discharged likely until Thursday. Orthopedics was consulted and also neurology. 05/28/2024 Patient is eval today in follow-up in the medical floor. He has significant weakness in his bilateral lower extremities. His upper extremities shows weakness right greater than left. He states has a difficult time fully extending his legs and lying flat. He was evaluated orthopedics recommending a cervical spine MRI which will be completed today. Suprapubic catheter in place and functioning well he has adequate urine output. Social work is following for discharge planning and has placed multiple referrals. 05/29/2024 Patient is seen in follow-up today with multiple consultations following. Patient being followed by orthopedics recommending outpatient follow-up with Dr. Bradley. Patient is undergoing neurological workup including MRI and awaiting further updated notes from PT/OT therapy for possible ECF. MRI of the brain is pending at this time. Family per nursing staff has significant history of Loida Gehrig's disease and further workup ongoing per neurology. Patient is afebrile denies chest pain or shortness of breath. Patient is slightly anxious on exam. Review of Systems Constitutional: Denied any fatigue denied any fever. Cardio vascular: denied any chest pain, palpitations Gastrointestinal: denied any nausea, vomiting, diarrhea Pulmonary: Denied any shortness of breath cough Neurologic denied any new focal deficits reports weakness bilateral lower extremities. All inpatient medications were reviewed and appropriate changes in these medications as dictated in the interval history and assessment and plan. PHYSICAL EXAMINATION: GENERAL: The patient is alert and oriented x2-3, not in any acute distress. Well developed, thin built, elderly appearing, muscle wasting noted HEENT: Pupils are round and equally reacting to light. EOMI. No scleral icterus. No conjunctival pallor. Normocephalic, atraumatic. No pharyngeal erythema. No thyromegaly. CARDIOVASCULAR: S1 and S2 present. No murmurs, rubs, or gallops. PULMONARY: Chest is clear to auscultation, no wheezing or crackles. ABDOMEN: Soft, nontender, nondistended, normoactive bowel sounds. No palpable organomegaly. Suprapubic catheter present no redness or drainage around incision. MUSCULOSKELETAL: No joint swelling or deformity. EXTREMITIES: No cyanosis, clubbing, or pedal edema. NEUROLOGICAL: Gross neurological examination did not reveal any focal deficits. Weakness bilateral lower extremities SKIN: No rashes. Groin and perineal/ excoriation and maceration Assessment General debility and weakness secondary to advanced age and multiple comorbidities Bilateral lower extremity weakness for evaluation Altered mental status due to acute metabolic encephalopathy / need to rule out acute stroke, neurological workup ongoing Urinary retention requiring a suprapubic catheter secondary to a false urethral passage Mild protein calorie malnutrition Maceration of the groin and perineum Family history of Loida Gehrig's with progressive weakness in this patient over the last 2 to 6 months Hypertension Hyperlipidemia Rheumatoid arthritis history Chronic nicotine use COPD with no acute exacerbation GI prophylaxis DVT prophylaxis Lovenox Full Code Plan Orthopedics and neurology consultation, per orthopedics no plans for surgical intervention recommending outpatient follow-up MRI of the brain is pending at this time, family concerned with possible Loida Gehrig's disease as there is extensive history of it in multiple family members, further workup ongoing Patient will need EMG testing on all 4 extremities on an outpatient basis. Monitor electrolytes repeat BMP/CBC Continue with suprapubic catheter and will continue on discharge. Monitor output. Continue zinc barrier paste to the groin maceration. PT/OT consultation have recommended subacute rehab and patient is currently pending accepting facility and insurance authorization. [facility] is open with this patient and patient has a legal guardian. This is due to living conditions and patient now essentially bed bound. The impression and plan of care has been dictated by [place], Nurse Practitioner as directed. Dr. Winston MD I have performed a history and physical examination and medical decision making of this patient, discussed the same with the dictator, and agree with the dictators assessment and plan as written, documented as a scribe. Based on total visit time, I have performed more than 50% of this visit. Objective - Vital Signs Vital signs: Vital Signs Temp 97.9 F 05/29/24 08:00 Pulse 86 05/29/24 08:00 Resp 16 05/29/24 08:00 BP 147/79 05/29/24 08:00 Pulse Ox 95 05/29/24 08:00 FiO2 Intake & Output 05/28/24 05/29/24 05/29/24 18:59 06:59 18:59 Intake Total 1080 Output Total 1450 1300 Balance -1450 -220 Intake: Oral 1080 Output: Urine 1450 1300 Other: Voiding Method Diaper Diaper Indwelling Catheter Indwelling Catheter - Labs CBC & Chem 7: 05/28/24 05:10 05/28/24 05:10 Labs: Abnormal Lab Results - Last 24 Hours (Table) 05/28/24 05/28/24 Range/Units 05:10 05:10 RBC 4.28 L (4.40-5.60) X 10*6/uL Hgb 12.6 L (13.0-17.0) g/dL Hct 37.6 L (39.6-50.0) % Monocytes # 1.02 H (0.20-1.00) X 10*3/uL Creatine Kinase 384 H (35-257) U/L Vitamin B12 <150.0 L (200.0-944.0) pg/mL
[2024-05-30] MEDS: FOLIC ACID 1 MG TAB PO SCH (09:52)
--- NOTE | 2024-05-30 18:49 | P.PN ---
Subjective Progress Note Date: 05/30/24 I am seeing the patient for the first time during this admission. Please refer to Dr. Mason's note for further details. According to the patient he thinks he has been having weakness for maybe a month or maybe slightly a bit more. Before he was living with the roommate and that roommate was helping him get around until the roommate moved in the beginning of May of this year. It seems the patient has severe rheumatoid arthritis. Patient has mother has a history of ALS at age of 68. He is not great historian. Objective - Vital Signs Vital signs: Vital Signs Temp 98.3 F 05/30/24 13:00 Pulse 92 05/30/24 13:00 Resp 18 05/30/24 13:00 BP 130/78 05/30/24 13:00 Pulse Ox 97 05/30/24 13:00 FiO2 Intake & Output 05/29/24 05/30/24 05/30/24 18:59 06:59 18:59 Intake Total 240 1250 1020 Output Total 1200 900 Balance -528 176 5963 Weight 77.111 kg Intake: Oral 240 1250 1020 Output: Urine 1200 900 Other: Voiding Method Diaper Diaper Indwelling Catheter Indwelling Catheter Indwelling Catheter # Voids 1 # Bowel Movements 1 1 - Exam General: Lying in bed and does not appear in acute distress. Neuro: Limited. Patient is awake alert oriented to self place and time. Is following simple commands. No aphasia. But his speech is slow. No facial weakness. Dysarthria was hard to assess since the patient does not have his dentures on. Motor: Strength is limited. Has severe arthritis. He is able to raise left upper extremity above gravity while right upper extremity he has more distal proximal is limited because of pain. He does have atrophy and upper extremity and proximal lower. Lower was a hard to assess his strength because of his pain but had 2 out of 5 movement bilaterally but again very limited because of the pain. Reflex patient has brisk reflexes in the brachioradialis as well as patellar. Biceps and triceps is about a 2. - Labs CBC & Chem 7: 05/28/24 05:10 05/28/24 05:10 Assessment and Plan Assessment: * 73-year-old male admitted with progressive difficulty with walking and muscle weakness, particularly since March 2024. Examination revealed asymmetric weakness, right upper extremity more than the left upper and some weakness in the proximal muscles of the lower limbs. Patient has brisk reflexes and bilateral Babinski. No obvious fasciculations noted. Cervical myelopathy ruled out. One of differential is Motor neuron disease. Also B12 deficiency can be culprit of symptoms. * Urinary retention, rule out spinal cord pathology * Vitamin B12 deficiency, severe, with levels <150. 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 * Family history of Loida Gehrig's disease * Hypertension * Hyperlipidemia * Moderate to severe Rheumatoid arthritis * Rule out cognitive impairment/dementia. * Bilateral subdural hygroma, with atrophy of the parietal lobes bilaterally. Plan: * MRI of the cervical spine revealed no evidence for disc herniation or significant spinal canal stenosis. Mild disc degeneration with associated osteoarthritic changes. I personally reviewed MRI agree with the findings. No significant stenosis. * B12 < 150, folate 6.9, MMA, hemoglobin A1c 5.3, CK 384, rheumatoid factor <15. TSH is normal 2.39. * Patient has severe vitamin B12 deficiency. This may be the cause of myelopathy. On B12 replacement. * UA shows large amount of leukocyte esterase and 26 WBCs, rule out UTI. * Patient would need EMG nerve conduction of all 4 extremities as an outpatient. Recommend to follow-up in neuromuscular specialist as outpatient within 2 weeks. * EEG preliminary: negative for seizure. * Patient CT head revealed evidence of significant atrophy of bilateral parietal lobes. There is also overlying subdural hygromas over bilateral parietal region. This may be related to compensatory mechanism from bilateral parietal lobe atrophy, which likely is related to his significant dementia. * Pending MRI of the brain. * DVT prophylaxis: Patient on Lovenox 30 mg subcu daily The plan is discussed with patient and his nurse. Time with Patient: Less than 30
[2024-05-30] MEDS: tiZANidine 4 MG TAB PO SCH (20:55)
--- NOTE | 2024-05-30 23:05 | EEG ---
ELECTROENCEPHALOGRAM REPORT CLINICAL HISTORY: This is a 73-year-old gentleman with altered mental status. The video EEG is obtained to evaluate for seizure epileptiform activity. RELEVANT MEDICATION: The patient is not on any antiseizure medication. EEG TYPE: This is a routine 21-channel EEG with video using the 10/20 electrode placement system. DESCRIPTION: Wakefulness and drowsiness are obtained. During awake state, the background consists of [id number] voltage of 7.5 to 8.5 hertz activity and appears well modulated. At times, the background is intermixed, alternates to diffuse nonrhythmic delta activity. There was no physiological stage 2 sleep architecture. There is no focal slowing. There is mild myogenic artifact over the left > right temporal region. Interictal and ictal: Rarely there is sharply contoured activity over the left temporal > right temporal but clinically during episode patient is moving his head and body. No clear discharges or seizures. ACTIVATION PROCEDURE: Photic stimulation did not evoke a posterior driving response. There is no abnormality during photic stimulation. Hyperventilation is not performed. CLINICAL INTERPRETATION: This is an abnormal routine EEG. The background slowing is suggestive of moderate encephalopathy. There is rare sharply contoured activity over the left temporal lobe that can increase risk of cortical irritability. But otherwise no clear discharges or seizure on the EEG. No focal slowing. Clinical correlation is recommended. STEVE / PANCHITON: [id number] / JOHN
[2024-05-31 07:56] VITALS: RESP 17; TEMP 98.7
--- NOTE | 2024-05-31 12:14 | MR ---
EXAMINATION TYPE: MR brain wo con DATE OF EXAM: 05/31/2024 COMPARISON: CT 05/27/2024 HISTORY: 73-year-old male subdural hygromas, confusion, Altered mental status, spasticity. TECHNIQUE: Multiplanar, multisequence images of the brain and brainstem were acquired without IV con trast. Diffusion weighted imaging is performed. FINDINGS: No evidence for acute infarction, hemorrhage, mass, mass effect, midline shift, herniation, effacemen t of basal cisterns, or extra-axial fluid collection. Moderate volume loss overlying the bilateral cerebral convexities. No hydrocephalus. However, there are trace bilateral subdural collections extending from front to back measuring 3 mm t hick. Additional 3 mm thickening of the midline falx. This shows bright T2/FLAIR weighted signal and no abnormal hyperdensity on the patient's recent CT. This would favor the presence of trace late suba cute subdural hematomas. Major intracranial flow voids are intact. Dominant left vertebral artery. T2/FLAIR weighted sequences show no white matter signal abnormality. Midline structures demonstrate normal morphology. The craniocervical junction is normal. Trace mucosal thickening ethmoid air cells. Slight rightward nasal septal herniation. Globes are inta ct. IMPRESSION: 1. Trace subdural hematomas along the bilateral cerebral convexities extending from front to back and additional trace subdural hematoma along the midline falx. These measure only 3 mm in thickness. Giv en the lack of any suspicious hyperdensity on patient's recent CT and bright signal on T2/FLAIR, late subacute blood products are suggested. 2. Moderate cerebral cortical volume loss. 3. No midline shift, hydrocephalus, herniation, or acute intracranial abnormality seen. [facility], , 05/31/2024 12:12 PM
[2024-05-31 13:40] VITALS: BP 115/65; PULSE 91
--- NOTE | 2024-05-31 13:47 | DS ---
DISCHARGE SUMMARY CHIEF COMPLAINT: General debility, generalized weakness, dysphagia, COPD. HISTORY OF PRESENT ILLNESS AND PHYSICAL EXAMINATION: Details of this man's history and physical can be found in the initial workup. LABORATORY STUDIES: While he was in the hospital, he had laboratory studies, details of which can be found in the laboratory section of his chart. COURSE IN THE HOSPITAL: After admission, he was placed on bedrest, started on intravenous fluids and physical, occupational, and speech therapies. He underwent extensive workup looking for any neurologic causes such as CVA, etc. Studies were negative. He was seen by Orthopedics to rule out any back disease and nothing was found. He was seen by Neurology to rule out any other spinal disease and studies were negative. He never regained ability to bear weight. It was planned that he would go into a prison for rehab and this was arranged. During his hospitalization, he was identified as having a low B12 level. His neurologic signs and symptoms were not compatible with dorsal column disease, but he will be placed on B12. There is a family history of AML, but he is neurologic. He was not compatible. He should have an EMG and nerve conduction study as an outpatient. He is stabilized and it was felt that he could be discharged and he will be sent to prison on the . FINAL DIAGNOSES: 1. General debility and weakness. 2. Chronic obstructive pulmonary disease. 3. B12 deficiency. 4. Inability to ambulate. OPERATIONS: None. CONSULTATIONS: Neurology, Orthopedics. He is improved. MMODL / PANCHITON: [id number] /
--- NOTE | 2024-06-02 02:25 | PN ---
PROGRESS NOTE DATE OF SERVICE: 05/30/2024 CHIEF COMPLAINT: General debility and weakness. HISTORY OF PRESENT ILLNESS: This gentleman is stable and there has been no interval change. Neurology has not found any neurologic pathology that the family was looking for (ALS). Brain studies have been essentially unremarkable. He has no signs or symptoms of ALS. He awaits rehab placement. PHYSICAL EXAMINATION: CHEST: Clear. CARDIAC: Normal. ABDOMEN: Soft, nontender. GENERAL: He remains weak and bedridden. PLAN: Await correction placement. MMODL / IJN: [id number] /
== END 2024-05-31 17:13 | DRG 698 ==
LOC: EC 12:57 → OBSVTOIN 15:57 → 5NMEDONC 15:57 → EEVIPCON 15:57 → 5NMEDONC 16:46
PROVIDERS: ADMIT Family Medicine; ATTEND Family Medicine
PROC: 0T9B40Z Drainage of Bladder with Drainage Device, Percutaneous Endoscopic Approach (ICD-10-PCS; principal; 2024-05-20)
DX: N36.5 Urethral false passage (principal); G93.41 Metabolic encephalopathy; E44.1 Mild protein-calorie malnutrition; G95.9 Disease of spinal cord, unspecified; G96.08 Other cranial cerebrospinal fluid leak; D71 Functional disorders of polymorphonuclear neutrophils; M06.9 Rheumatoid arthritis, unspecified; J43.9 Emphysema, unspecified; R62.7 Adult failure to thrive; E86.0 Dehydration; I10 Essential (primary) hypertension; E78.5 Hyperlipidemia, unspecified; R53.81 Other malaise; E53.8 Deficiency of other specified B group vitamins; M62.81 Muscle weakness (generalized); M54.9 Dorsalgia, unspecified; R47.1 Dysarthria and anarthria; R33.9 Retention of urine, unspecified; Z74.8 Other problems related to care provider dependency; Z74.01 Bed confinement status; Z68.26 Body mass index [BMI] 26.0-26.9, adult; Z87.891 Personal history of nicotine dependence; Z91.85 Personal history of military service; Z79.899 Other long term (current) drug therapy
CPT/HCPCS: 36415; 70450; 70551; 71046; 71250; 72141; 80048; 80053; 81001; 82550; 82607; 82746; 83036; 83605; 83735; 83921; 84443; 84484; 85025; 85610; 85730; 86431; 86780; 87635; 93005; 95816; 96360; 96361; 99285

== ENCOUNTER 2024-06-06 00:33 | Inpatient (IN) | payer MEDICARE ==
--- NOTE | 2024-06-06 01:09 | ED ---
General Adult HPI - General Chief complaint: Nausea/Vomiting/Diarrhea Stated complaint: Abd Pain Time Seen by Provider: 06/06/24 00:36 Source: patient, EMS Limitations: no limitations - History of Present Illness Initial comments: Patient is a 73-year-old gentleman history of hypertension hyperlipidemia presenting today for abdominal pain. No BM x 1 week. Has had progressively worsening abdominal pain. States he began having episodes of emesis today after drinking water. Did not know what they looked like so they are unsure if bloody or bilious. States he does have a hx of prior hernia, repaired 50 years ago. Denies CP or abdominal pain. Denies dysuria, hematuria or difficulty urinating. - Related Data Home Medications Medication Instructions Recorded Confirmed Acetaminophen Tab [Tylenol] 650 mg PO Q6H PRN 06/06/24 06/06/24 Cyanocobalamin [Vitamin B-12 1,000 mcg IM HS 06/06/24 06/06/24 Injection] Ondansetron [Zofran] 4 mg PO Q6H PRN 06/06/24 06/06/24 Previous Rx's Medication Instructions Recorded Clotrimazole Cream [Lotrimin Cream] 1 applic TOPICAL BID each 05/31/24 Folic Acid 1 mg PO DAILY #100 tab 05/31/24 amLODIPine [Norvasc] 5 mg PO DAILY #90 tab 05/31/24 Allergies Allergy/AdvReac Type Severity Reaction Status Date / Time No Known Allergies Allergy Verified 06/06/24 00:35 Review of Systems ROS Statement: Those systems with pertinent positive or pertinent negative responses have been documented in the HPI. ROS Other: All systems not noted in ROS Statement are negative. Past Medical History Past Medical History: Hyperlipidemia, Hypertension, Rheumatoid Arthritis (RA), Thyroid Disorder History of Any Multi-Drug Resistant Organisms: None Reported Past Surgical History: Hernia Repair Past Anesthesia/Blood Transfusion Reactions: No Reported Reaction Past Psychological History: No Psychological Hx Reported Smoking Status: Former smoker Past Alcohol Use History: None Reported Past Drug Use History: None Reported General Exam - General Exam Comments Initial Comments: PE: CONSTITUTIONAL: No apparent distress, ill-appearing, nontoxic SKIN: Warm, dry, no jaundice, hives or petechiae EYES: Pupils are equally round, extraocular movements intact without nystagmus, clear conjunctiva, non-icteric sclera HENT: Normocephalic, atraumatic, dry mucus membranes, oropharynx clear without exudates NECK: , Full range of motion, normal appearance PULMONARY: Clear to auscultation without wheezes, rhonchi, or rales, normal excursion, no accessory muscle use and no stridor CARDIOVASCULAR: Regular rate, rhythm, normal S1 and S2. No appreciated murmurs, rubs or gallops. Strong radial pulses with intact distal perfusion. No lower extremity edema GASTROINTESTINAL: Firm, active bowel sounds throughout, diffusely tender to palpation, mildly distended, no palpable masses, guarding with palpation throughout the abdomen no hepatosplenomegaly MUSCULOSKELETAL: Extremities have no gross deformity, no edema, redness, or swelling. No calf swelling NEUROLOGIC:_a/o x 3, GCS 15, normal mentation and speech. Moves all extremities x 4 without motor or sensory deficit PSYCHIATRIC:_normal mood and affect, thought process is clear and linear Limitations: no limitations Course Vital Signs 06/06/24 06/06/24 06/06/24 00:35 02:13 04:10 Temperature 97.7 F Pulse Rate 113 H 93 137 H Respiratory 18 18 16 Rate Blood Pressure 133/89 128/91 130/106 O2 Sat by Pulse 94 L 96 96 Oximetry 06/06/24 06/06/24 05:35 07:24 Temperature Pulse Rate 124 H 116 H Respiratory 16 18 Rate Blood Pressure 99/74 103/78 O2 Sat by Pulse 92 L 93 L Oximetry Medical Decision Making - Medical Decision Making Was pt. sent in by a medical professional or institution (, PA, DATA INTEGRITY CONSULTANT, urgent care, hospital, or detention...) When possible be specific @Patient was sent in by the [facility] Did you speak to anyone other than the patient for history (EMS, parent, family, police, friend...)? What history was obtained from this source @ -No Did you review nursing and triage notes (agree or disagree)? Why? @ -I reviewed and agree with nursing and triage notes Were old charts reviewed (outside hosp., previous admission, EMS record, old EKG, old radiological studies, urgent care reports/EKG's, detention records)? Report findings @Medical records reviewed-patient recently admitted for Generalized weakness, of note patient had a suprapubic catheter placed during that admission. I see no other surgical history on chart review. Differential Diagnosis (chest pain, altered mental status, abdominal pain women, abdominal pain men, vaginal bleeding, weakness, fever, dyspnea, syncope, headache, dizziness, GI bleed, back pain, seizure, CVA, palpatations, mental health, musculoskeletal)? @ -Differential Abdominal Pain Men: Appendicitis, cholecystitis, diverticulosis, ischemic bowel, pancreatitis, hepatitis, UTI, gastroenteritis, AAA, incarcerated hernia, bowel obstruction, constipation, inflammatory bowel, peptic ulcer disease, splenic infarction, perforated viscus, testicular torsion, this is not meant to be an all-inclusive list EKG interpreted by me (3pts min.). @ -As above X-rays interpreted by me (1pt min.). @ -None done CT interpreted by me (1pt min.). @Obvious air fluid levels, dilated bowel loop with transition point, consistent with SBO U/S interpreted by me (1pt. min.). @ -None done What testing was considered but not performed or refused? (CT, X-rays, U/S, labs)? Why? @ -None What meds were considered but not given or refused? Why? @ -None Did you discuss the management of the patient with other professionals ( professionals i.e. , PA, DATA INTEGRITY CONSULTANT, lab, RT, psych nurse, professor of social work, general service technician, teacher, mechanical engineering officer, dependency case manager)? Give summary @ -Yes, Case was discussed with Dr. Dasilva, general surgery, appreciate recs, recommends NG tube, request admission to medicine Was smoking cessation discussed for >3mins.? @ -No Was critical care preformed (if so, how long)? @ -Yes, 35 minutes Were there social determinants of health that impacted care today? How? (Homelessness, low income, unemployed, alcoholism, drug addiction, transportation, low edu. Level, literacy, decrease access to med. care, halfway, rehab)? @ -No Was there de-escalation of care discussed even if they declined (Discuss DNR or withdrawal of care, Hospice)? @ -No What co-morbidities impacted this encounter? (DM, HTN, Smoking, COPD, CAD, Can cer, CVA, ARF, Chemo, Hep., AIDS, mental health diagnosis, sleep apnea, morbid obesity)? @ -HTN Was patient admitted / discharged? Hospital course, mention meds given and route, prescriptions, significant lab abnormalities, going to OR and other pertinent info. @ -Admission- Patient is a pleasant 73 y/o gentleman, recent admission for generalized weakness, presenting today for no BM x 1 week, nausea, vomiting and abdominal pain. On my assessment patient chronically ill appearing, no acute distress though painful appearing, nontoxic. Exam sig. for dry MM, diffusely tender abdomen, mildly distended, firm, guarding with palpation, no hernias or palpable masses, active bowel sounds. Differential dx as above, however I am most concerned for bowel obstruction. Given patient's age, would need to wait for labs to assess renal function if order CT w/ contrast, and as bowel obstruction and incarcerated hernia can be seen on CT wo, ordered stat CT a/p w/o contrast in addition to CBC, CMP, lipase, lactic, UA, IV fluids, pain meds. Pt agreeable with plan. Labs signifcant for mild leukocytosis, SUZY. Hyponatremia sodium 128. Patient has received 1 L normal saline. Will order maintenance fluids containing normal saline. CT reviewed. Consistent with SBO. Read by radiologist as high grade bowel obstruction. Pt's prior hernia repair was 50 years ago. Discussed case with Dr. Dasilva, general surgery, recommends NG tube placement and admission to medicine. Updated patient to findings and plan of care. Remains painful, ordered additional pain meds, NG tube. Ordered surgical prophylaxis, Rocephin and Flagyl. Pt to be admitted to Dr. Navarro in stable condition. Undiagnosed new problem with uncertain prognosis? @ -No Drug Therapy requiring intensive monitoring for toxicity (Heparin, Nitro, Insulin, Cardizem)? @ -No Were any procedures done? @ -No Diagnosis/symptom? @ -Small bowel obstruction, SUZY, hyponatremia Acute, or Chronic, or Acute on Chronic? @ -Acute Uncomplicated (without systemic symptoms) or Complicated (systemic symptoms)? @ -Complicated Side effects of treatment? @ -No Exacerbation, Progression, or Severe Exacerbation? @ -No Poses a threat to life or bodily function? How? (Chest pain, USA, CO, pneumonia, PE, COPD, DKA, ARF, appy, cholecystitis, CVA, Diverticulitis, Homicidal, Suicidal, threat to staff... and all critical care pts) @Yes - Lab Data Result diagrams: 06/14/24 06:20 06/14/24 06:20 Lab Results 06/06/24 06/06/24 06/06/24 Range/Units 00:41 00:41 00:41 WBC 6.9 (3.8-10.6) k/uL RBC 5.44 (4.30-5.90) m/uL Hgb 16.0 (13.0-17.5) gm/dL Hct 47.2 (39.0-53.0) % MCV 86.7 (80.0-100.0) fL MCH 29.4 (25.0-35.0) pg MCHC 33.9 (31.0-37.0) g/dL RDW 12.1 (11.5-15.5) % Plt Count 443 (150-450) k/uL MPV 8.1 Neutrophils % (Manual) 39 % Band Neuts % (Manual) 39 % Lymphocytes % (Manual) 11 % Monocytes % (Manual) 11 % Neutrophils # (Manual) 5.30 (1.3-7.7) k/uL Lymphocytes # (Manual) 0.76 L (1.0-4.8) k/uL Monocytes # (Manual) 0.76 (0-1.0) k/uL Nucleated RBCs 0 (0-0) /100 WBC Manual Slide Review Performed Toxic Granulation Present Toxic Vacuolation Present Sodium 128 L (137-145) mmol/L Potassium 4.4 (3.5-5.1) mmol/L Chloride 87 L (98-107) mmol/L Carbon Dioxide 28 (22-30) mmol/L Anion Gap 13 mmol/L BUN 74 H (9-20) mg/dL Creatinine 1.30 H (0.66-1.25) mg/dL Est GFR (CKD-EPI)AfAm 64 (>60 ml/min/1.73 sqM) Est GFR (CKD-EPI)NonAf 55 (>60 ml/min/1.73 sqM) Glucose 117 H (74-99) mg/dL Plasma Lactic Acid Leonard 1.8 (0.7-2.0) mmol/L Calcium 9.4 (8.4-10.2) mg/dL Total Bilirubin 1.8 H (0.2-1.3) mg/dL AST 55 (17-59) U/L ALT 74 H (4-49) U/L Alkaline Phosphatase 152 H (38-126) U/L Total Protein 8.0 (6.3-8.2) g/dL Albumin 4.1 (3.5-5.0) g/dL Amylase 43 (30-110) U/L Lipase 37 (23-300) U/L Disposition Clinical Impression: Small bowel obstruction, SUZY (acute kidney injury), Hyponatremia Disposition: ADMITTED IP TO THIS [facility] Condition: Stable
[2024-06-06] MEDS: ONDANSETRON 4 MG/2 ML VIAL IVP STA ×2 (01:17→02:15)
[2024-06-06] MEDS: SODIUM CHLORIDE 0.9% 1,000 ML IV STA (01:17)
[2024-06-06] MEDS: MORPHINE SULFATE 4 MG/ML SYRINGE IVP STA ×2 (01:18→02:14)
[2024-06-06 01:23] LABS: HCT 47.2 % (39.0-53.0); MCH 29.4 pg (25.0-35.0); MCHC 33.9 g/dL (31.0-37.0); MCV 86.7 fL (80.0-100.0); Mean Platelet Volume 8.1; Platelet Count 443 k/uL (150-450); RBC 5.44 m/uL (4.30-5.90); RDW 12.1 % (11.5-15.5); WBC 6.9 k/uL (3.8-10.6)
[2024-06-06 01:28] LABS: ALT 74 U/L (4-49); AST 55 U/L (17-59); African American GFR (CKD) 64 (>60 ml/min/1.73 sqM); Albumin 4.1 g/dL (3.5-5.0); Alkaline Phosphatase 152 U/L (38-126); Amylase 43 U/L (30-110); Anion Gap 13 mmol/L; Blood Urea Nitrogen 74 mg/dL (9-20); Calcium 9.4 mg/dL (8.4-10.2); Carbon Dioxide 28 mmol/L (22-30); Chloride 87 mmol/L (98-107); Glucose 117 mg/dL (74-99); Lipase 37 U/L (23-300); Non-African American GFR(CKD) 55 (>60 ml/min/1.73 sqM); Potassium 4.4 mmol/L (3.5-5.1); Sodium 128 mmol/L (137-145); Total Bilirubin 1.8 mg/dL (0.2-1.3)
[2024-06-06 01:49] LABS: Band Neutrophils % 39 %; Lymphocytes # (M) 0.76 k/uL (1.0-4.8); Monocytes # (M) 0.76 k/uL (0-1.0); Neutrophils % (M) 39 %; Nucleated Red Blood Cells 0 /100 WBC (0-0); Total Cells Counted 200; Toxic Granulation Present; Toxic Vacuolation Present
--- NOTE | 2024-06-06 01:55 | CT ---
EXAM: CT Abdomen and Pelvis Without Intravenous Contrast CLINICAL HISTORY: ITS.REASON CT Reason: no BM x 1 week, firm abdomen, SBO? TECHNIQUE: Axial computed tomography images of the abdomen and pelvis without intravenous contrast. CTDI is 8 mGy and DLP is 452.6 mGy-cm. This CT exam was performed using one or more of the following dose reduction techniques: automated exposure control, adjustment of the mA and/or kV according to patient size, and/or use of iterative reconstruction technique. COMPARISON: No relevant prior studies available. FINDINGS: Left basilar atelectasis. ABDOMEN: Liver: Mildly nodular. Gallbladder and bile ducts: Unremarkable. Pancreas: No ductal dilation. Spleen: Unremarkable. Adrenals: Unremarkable. Kidneys and ureters: No obstructing stones. No hydronephrosis. Stomach and bowel: Stool impaction throughout the colon. Severely distended loops of small bowel seen with transition point in the mid to lower abdomen. PELVIS: Appendix: No evidence of appendicitis. Bladder: No stones. Reproductive: Unremarkable. ABDOMEN and PELVIS: Intraperitoneal space: Mild ascites likely reactive. Bones/joints: No acute fractures. Grade 1 anterolisthesis L4 on L5 from severe facet arthrosis from Soft tissues: Unremarkable. Vasculature: No abdominal aortic aneurysm. Lymph nodes: No enlarged lymph nodes. IMPRESSION: 1. high-grade small bowel obstruction. 2. stool impaction throughout the colon
[2024-06-06] MEDS ORDERED: NALOXONE 0.4 MG/ML 1 ML VIAL IV PRN (02:17)
[2024-06-06] MEDS ORDERED: HYDROmorphone 1 MG/ML 1 ML SYRINGE IVP PRN (02:17)
[2024-06-06] MEDS: DEXTROSE 5%-0.45% NACL 1,000 ML IV SCH (02:58)
[2024-06-06] MEDS: SODIUM CHLORIDE 0.9% 1,000 ML IV SCH (02:58)
[2024-06-06] MEDS: cefTRIAXone IN SWFI 1,000 MG/10 ML SYRINGE IVP STA (03:03)
--- NOTE | 2024-06-06 03:10 | XR ---
EXAM: XR Abdomen, 1 View CLINICAL HISTORY: ITS.REASON XR Reason: NG tube placement TECHNIQUE: Frontal supine view of the abdomen/pelvis. COMPARISON: No relevant prior studies available. IMPRESSION: Feeding tube in good position
[2024-06-06] MEDS: DEXTROSE 5%-0.9% NACL 1,000 ML IV SCH (03:13)
[2024-06-06] MEDS: metroNIDAZOLE-NS PMX 500 MG in SALINE 1 100ML.BAG IVPB STA (03:16)
[2024-06-06 04:13] LABS: Appearance,Urine Cloudy (Clear); Bacteria,Urine Rare /hpf; Bilirubin,Urine 1+ (Negative); Blood,Urine Moderate (Negative); Calcium Oxalate Crystals,Urine Occasional /hpf; Color,Urine Yellow; Glucose,Urine (UA) Negative (Negative); Hyaline Casts,Urine 25 /lpf (0-2); Ketones,Urine Negative (Negative); Leukocyte Esterase,Urine Trace (Negative); Mucus,Urine Few /hpf; Nitrite,Urine Negative (Negative); PH, Urine 5.5 (5.0-8.0); Protein,Urine 1+ (Negative); RBC,Urine >182 /hpf (0-5); Specific Gravity,Urine 1.022 (1.001-1.035); WBC,Urine 9 /hpf (0-5)
--- NOTE | 2024-06-06 05:05 | XR ---
EXAMINATION TYPE: XR chest 1V portable DATE OF EXAM: 06/06/2024 CLINICAL HISTORY: NG tube placement TECHNIQUE: Single frontal upright view of the chest is obtained. COMPARISON: CT chest May 19, 2024 FINDINGS: Background chronic emphysematous change is redemonstrated. There is left basilar opacity. There is new nasogastric tube projecting below diaphragm. The cardiac silhouette size is stable and within normal limits. The osseous structures are intact. IMPRESSION: 1. New nasogastric tube satisfactory in position. 2. Background chronic emphysematous change with left basilar acute infiltrate and/or atelectasis. [facility], , 06/06/2024 5:03 AM
[2024-06-06] MEDS: LORazepam 2 MG/ML INJ IV STA (05:06)
[2024-06-06] MEDS ORDERED: amLODIPine 5 MG TAB PO SCH (09:00)
[2024-06-06] MEDS: PANTOPRAZOLE 40 MG/10 ML VIAL IV SCH (09:29)
--- NOTE | 2024-06-06 11:19 | P.GSCN ---
History of Present Illness Consult date: 06/06/24 History of present illness: CHIEF COMPLAINT: Abdominal pain HISTORY OF PRESENT ILLNESS: This is a 73-year-old male who presented with abdominal pain. Per chart reports no bowel movement x 1 week. He did have episodes of nausea and vomiting. Patient is currently lethargic. He did receive Ativan earlier in the morning because of agitation and he had been pulling out the NG tube. He had the NG tube replaced twice. There is barely any output through the NG tube. Patient is lethargic. Past surgical history does include prior hernia repair. Patient is currently at [facility]. He does have a public guardian. Patient admitted to hospital for small bowel obstruction. CT scan had reported high-grade small bowel obstruction. Stool impaction throughout the colon. Patient has been mildly tachycardic. 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 Followed by neurology at that time. PAST MEDICAL HISTORY: See below PAST SURGICAL HISTORY: Hernia repair, suprapubic catheter MEDICATIONS: See below ALLERGIES: See below SOCIAL HISTORY: No illicit drug use. REVIEW OF SYSTEMS: CONSTITUTIONAL: Denies fever or chills. HEENT: Denies blurred vision, vision changes, or eye pain. Denies hemoptysis CARDIOVASCULAR: Denies chest pain or pressure. RESPIRATORY: No shortness of breath. GASTROINTESTINAL: See HPI for pertinent findings HEMATOLOGIC: Denies bleeding disorders. GENITOURINARY: Denies any blood in urine or increased urinary frequency. SKIN: Denies pruitis. Denies rash. PHYSICAL EXAM: VITAL SIGNS: Reviewed GENERAL: no acute distress. Poor hygiene. Patient is moaning ABDOMEN: Soft. Mildly distended. Diffuse tenderness. No guarding. NEUROLOGIC: Lethargic LABORATORY DATA: WBC 6.9 Hgb 16 platelets 443 Sodium 128 potassium 4.4 creatinine 1.30 Lactic acid 1.8 Total bilirubin 1.8 AST 55 ALT 74 alk phos 152 Lipase 37 IMAGING: CT scan abdomen pelvis reports high-grade small bowel obstruction. Stool impaction throughout the colon ASSESSMENT: 1. High-grade small bowel obstruction PLAN: -Continue NG tube for decompression -Keep patient n.p.o. 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 Signing provider agrees with the documented findings, assessment, and plan of care. Attestation Patient seen and examined at bedside. He is currently lethargic and not answering questions appropriately. Neurology consult placed for mental status changes. CT of the abdomen was performed with concern for small bowel obstruction. Stool impaction throughout the colon with air noted throughout the colon. No leukocytosis. No lactic acidosis. At this time, it is difficult to perform an exam. Recommend small bowel follow-through study for further evaluation based on patient's mental status. Hussain Dasilva DO Past Medical History Past Medical History: Hyperlipidemia, Hypertension, Rheumatoid Arthritis (RA), Thyroid Disorder History of Any Multi-Drug Resistant Organisms: None Reported Past Surgical History: Hernia Repair Past Anesthesia/Blood Transfusion Reactions: No Reported Reaction Past Psychological History: No Psychological Hx Reported Smoking Status: Former smoker Past Alcohol Use History: None Reported Past Drug Use History: None Reported Medications and Allergies Home Medications Medication Instructions Recorded Confirmed Type Clotrimazole Cream [Lotrimin Cream] 1 applic TOPICAL BID each 05/31/24 06/06/24 Rx Folic Acid 1 mg PO DAILY #100 tab 05/31/24 06/06/24 Rx amLODIPine [Norvasc] 5 mg PO DAILY #90 tab 05/31/24 06/06/24 Rx Acetaminophen Tab [Tylenol] 650 mg PO Q6H PRN 06/06/24 06/06/24 History Cyanocobalamin [Vitamin B-12 1,000 mcg IM HS 06/06/24 06/06/24 History Injection] Ondansetron [Zofran] 4 mg PO Q6H PRN 06/06/24 06/06/24 History Allergies Allergy/AdvReac Type Severity Reaction Status Date / Time No Known Allergies Allergy Verified 06/06/24 00:35 Surgical - Exam Osteopathic Statement: *. No significant issues noted on an osteopathic structu ral exam other than those noted in the History and Physical/Consult. Vital Signs Temp Pulse Resp BP Pulse Ox 97.7 F 113 H 18 133/89 94 L 06/06/24 00:35 06/06/24 00:35 06/06/24 00:35 06/06/24 00:35 06/06/24 00:35 Results - Labs 06/06/24 00:41 06/06/24 00:41 Abnormal Lab Results - Last 24 Hours (Table) 06/06/24 06/06/24 06/06/24 Range/Units 00:41 00:41 04:00 Lymphocytes # (Manual) 0.76 L (1.0-4.8) k/uL Sodium 128 L (137-145) mmol/L Chloride 87 L (98-107) mmol/L BUN 74 H (9-20) mg/dL Creatinine 1.30 H (0.66-1.25) mg/dL Glucose 117 H (74-99) mg/dL Total Bilirubin 1.8 H (0.2-1.3) mg/dL ALT 74 H (4-49) U/L Alkaline Phosphatase 152 H (38-126) U/L Urine Protein 1+ H (Negative) Urine Blood Moderate H (Negative) Urine Bilirubin 1+ H (Negative) Ur Leukocyte Esterase Trace H (Negative) Urine RBC >182 H (0-5) /hpf Urine WBC 9 H (0-5) /hpf Calcium Oxalate Crystal Occasional H (None) /hpf Urine Bacteria Rare H (None) /hpf Hyaline Casts 25 H (0-2) /lpf Urine Mucus Few H (None) /hpf Diabetes panel 06/06/24 Range/Units 00:41 Sodium 128 L (137-145) mmol/L Potassium 4.4 (3.5-5.1) mmol/L Chloride 87 L (98-107) mmol/L Carbon Dioxide 28 (22-30) mmol/L BUN 74 H (9-20) mg/dL Creatinine 1.30 H (0.66-1.25) mg/dL Glucose 117 H (74-99) mg/dL Calcium 9.4 (8.4-10.2) mg/dL AST 55 (17-59) U/L ALT 74 H (4-49) U/L Alkaline Phosphatase 152 H (38-126) U/L Total Protein 8.0 (6.3-8.2) g/dL Albumin 4.1 (3.5-5.0) g/dL Calcium panel 06/06/24 Range/Units 00:41 Calcium 9.4 (8.4-10.2) mg/dL Albumin 4.1 (3.5-5.0) g/dL Pituitary panel 06/06/24 Range/Units 00:41 Sodium 128 L (137-145) mmol/L Potassium 4.4 (3.5-5.1) mmol/L Chloride 87 L (98-107) mmol/L Carbon Dioxide 28 (22-30) mmol/L BUN 74 H (9-20) mg/dL Creatinine 1.30 H (0.66-1.25) mg/dL Glucose 117 H (74-99) mg/dL Calcium 9.4 (8.4-10.2) mg/dL Adrenal panel 06/06/24 Range/Units 00:41 Sodium 128 L (137-145) mmol/L Potassium 4.4 (3.5-5.1) mmol/L Chloride 87 L (98-107) mmol/L Carbon Dioxide 28 (22-30) mmol/L BUN 74 H (9-20) mg/dL Creatinine 1.30 H (0.66-1.25) mg/dL Glucose 117 H (74-99) mg/dL Calcium 9.4 (8.4-10.2) mg/dL Total Bilirubin 1.8 H (0.2-1.3) mg/dL AST 55 (17-59) U/L ALT 74 H (4-49) U/L Alkaline Phosphatase 152 H (38-126) U/L Total Protein 8.0 (6.3-8.2) g/dL Albumin 4.1 (3.5-5.0) g/dL
[2024-06-06] MEDS: metroNIDAZOLE-NS PMX 500 MG in SALINE 1 100ML.BAG IVPB SCH (12:43)
[2024-06-06] MEDS: HYDROmorphone 0.5 MG/0.5 ML SYRINGE IVP PRN (13:27)
[2024-06-07] MEDS: HYDROmorphone 2 MG/ML 1 ML SYRINGE IVP PRN (03:20)
--- NOTE | 2024-06-07 09:18 | FL ---
EXAMINATION TYPE: FL small bowel follow through DATE OF EXAM: 06/07/2024 9:01 AM COMPARISON: CT abdomen pelvis most recent from 06/06/2024 CLINICAL INDICATION:Male, 73 years old with history of abdominal distention, SBO; TECHNIQUE: The procedure was explained and patient history elicited. All patient questions were ans wered prior to start of procedure. A [employer] clerk radiograph of the abdomen was also reviewed. The patient was asked to ingest liquid Isovue and incremental frontal abdominal radiographs were then taken until contrast was visualized in the cecum. Fluoroscopic time: 0 min Fluoroscopic images: 0 Radiographs taken: 8 DAP: Not reported [id number] FINDINGS: Large amount of stool throughout the colon. Dilated loops of bowel are present. . Nasogastric tube is then set to suction. Catheter projecting over the pelvis present. There is aspiration identified on some of the beginning radiographs. Suction was then turned on. Cont rast remains in the small bowel at 21 hours. Given patient aspiration and lack of contrast throughout the bowel exam was canceled. Consider follow-up exam if patient is able to keep contrast down. There remains dilated loops of bowel and large amount stool. IMPRESSION: 1. Exam canceled and 21 hours due to previous aspiration with resultant suction on the nasogastric t ube and lack oral contrast throughout the exam. 2. Aspiration of oral contrast into the left lower lung. 3. Large stool burden throughout the colon. [facility], , 06/07/2024 9:16 AM
--- NOTE | 2024-06-07 09:41 | P.CNNES ---
History of Present Illness Consult date: 06/06/24 Requesting physician: Madison Rothman Reason for Consult: Mental status change History of Present Illness: Patient is a 73-year-old male came to the hospital by ambulance powder compounder today at 12:33 AM. As per EMS flowsheet patient came for possible small bowel obstruction. Staff mentioned that patient has not eaten anything in a few days and that he has not had a bowel movement for around 10 days. Patient had normal mentation and was found to be on oxygen because staff is worried that his oxygen sats are dropping. Patient's vitals at the scene was blood pressure 155/98, pulse rate 114, respiration 22 saturation 92%. EKG shows sinus rhythm. Patient has been afebrile. Blood test shows normal CBC, sodium 128 potassium 4.4, BUN 74 creatinine 1.30, AST is normal 55 ALT 74. UA shows 9 WBC, trace leukocyte esterase. CT of abdomen pelvis shows high-grade small bowel obstruction. Stool impaction throughout the colon. Chest x-ray showed new NG tube. Background chronic emphysematous change with left basilar acute infiltrate and/or atelectasis. Patient has been seen by general surgery, recommending small bowel follow- through study with Gastrografin. Patient at present appears to be in significant pain, moaning, complaining of abdominal discomfort. Patient denies any headache or dizziness, no neurological symptoms. Patient was seen by neurology team on recent admission, last time seen by myself 05/28/2024 with severe vitamin B12 deficiency and was felt to have myelopathy related to B12 deficiency. Patient had MRI of the brain without contrast which revealed trace subdural hematomas along the bilateral cerebral convexities extending from front to the back and additional trace subdural hematoma along the midline falx. These measure only 3 mm in thickness. This is consistent with late subacute blood products. Moderate cerebral cortical volume loss. No hydrocephalus, midline shift. MRI of the cervical spine revealed no evidence for disc herniation or significant spinal canal stenosis. Patient had an EEG on 05/30/2024, which revealed moderate encephalopathy. There is rare sharply contoured activity over the left temporal lobe that can increase risk of cortical irritability. Otherwise no clear discharges or seizures on the EEG. No focal slowing. Review of Systems All pertinent positive and negative mentioned in the HPI. Past Medical History Past Medical History: Hyperlipidemia, Hypertension, Rheumatoid Arthritis (RA), Thyroid Disorder History of Any Multi-Drug Resistant Organisms: None Reported Past Surgical History: Hernia Repair Past Anesthesia/Blood Transfusion Reactions: No Reported Reaction Past Psychological History: No Psychological Hx Reported Smoking Status: Former smoker Past Alcohol Use History: None Reported Past Drug Use History: None Reported Medications and Allergies Home Medications Medication Instructions Recorded Confirmed Type Clotrimazole Cream [Lotrimin Cream] 1 applic TOPICAL BID each 05/31/24 06/06/24 Rx Folic Acid 1 mg PO DAILY #100 tab 05/31/24 06/06/24 Rx amLODIPine [Norvasc] 5 mg PO DAILY #90 tab 05/31/24 06/06/24 Rx Acetaminophen Tab [Tylenol] 650 mg PO Q6H PRN 06/06/24 06/06/24 History Cyanocobalamin [Vitamin B-12 1,000 mcg IM HS 06/06/24 06/06/24 History Injection] Ondansetron [Zofran] 4 mg PO Q6H PRN 06/06/24 06/06/24 History Allergies Allergy/AdvReac Type Severity Reaction Status Date / Time No Known Allergies Allergy Verified 06/06/24 00:35 Physical Examination - Vital Signs Vital Signs: Vital Signs Temp Pulse Pulse Resp BP BP Pulse Ox 06/06/24 14:00 98.4 F 109 H 20 116/73 93 L 06/06/24 08:00 98.9 F 111 H 18 134/97 95 06/06/24 07:24 116 H 18 103/78 93 L 06/06/24 05:35 124 H 16 99/74 92 L 06/06/24 04:10 137 H 16 130/106 96 06/06/24 02:13 93 18 128/91 96 06/06/24 00:35 97.7 F 113 H 18 133/89 94 L Intake and Output 06/06/24 06/06/24 06/06/24 06:59 14:59 22:59 Intake Total 1050 Output Total 600 1175 Balance -600 -125 Intake: Intake, IV Titration 1050 Amount Dextrose 5%-0.9% NaCl 1, 900 000 ml @ 100 mls/hr IV . Q10H [facility] Rx#:[id number] cefTRIAXone 1 gm In 50 Sodium Chloride 0.9% 50 ml @ 100 mls/hr IVPB Q24HR [facility] Rx#:[id number] metroNIDAZOLE-NS PMX 500 100 mg In Saline 1 100ml.bag @ 100 mls/hr IVPB Q8H [facility] Rx#:[id number] Output: Gastric Drainage 600 900 Urine 275 Suprapubic 275 Other: Voiding Method Indwelling Catheter Indwelling Catheter # Bowel Movements 0 Weight 77.111 kg Patient is an elderly male, appears to be in moderate distress because of abdominal discomfort. Patient is alert awake oriented to time place and person. He knows it is May and the year is 2023 and that he is in the [facility] in [facility]. He knows name of the current president Mr. Wesley. Speech and language functions are normal. Patient can name and repeat very well. No aphasia or dysarthria. Attention, concentration is diminished due to pain and fund of knowledge is probably limited. Patient not a good historian. On cranial nerve examination, pupils are equal, round and reacting to light, visual felix are full on confrontation, with no neglect on double simultaneous stimulation. Extraocular muscles are intact with no nystagmus. Face is symmetric, tongue protrudes to the midline. Palatal elevation and sensation normal, hearing and shoulder shrug normal, facial sensation normal. On muscle strength testing, (right/left) deltoid 2/4, biceps 4/5-, triceps 4-/5- 4+, polisher apprentice 4+/4, hip flexion 4-3+/3+3, ankle dorsiflexion 5/5. Patient has swan- neck deformity of the index finger of the left hand. Deep tendon reflexes are (right/left) biceps 2+/2+3, brachioradialis 2+/2+3, knees 3+/3+, plantars are upgoing bilaterally. Sensory to touch is equal with no neglect on double simultaneous stimulation. Cerebellar function showed no ataxia for [id number] testing. Tone is normal and bulk of muscles is slightly decreased. No obvious fasciculations noted. Gait deferred.. On general examination, there is no carotid bruit or murmur, S1-S2 audible. Chest is clear on consultation. Abdomen is soft nontender. No organomegaly, bowel sounds present. Peripheral pulses are present. No peripheral edema. Results - Laboratory Findings CBC and BMP: 06/06/24 00:41 06/06/24 00:41 Abnormal Lab Findings: Abnormal Labs 06/06/24 06/06/24 06/06/24 00:41 00:41 04:00 Lymphocytes # (Manual) 0.76 L Sodium 128 L Chloride 87 L BUN 74 H Creatinine 1.30 H Glucose 117 H Total Bilirubin 1.8 H ALT 74 H Alkaline Phosphatase 152 H Urine Protein 1+ H Urine Blood Moderate H Urine Bilirubin 1+ H Ur Leukocyte Esterase Trace H Urine RBC >182 H Urine WBC 9 H Calcium Oxalate Crystal Occasional H Urine Bacteria Rare H Hyaline Casts 25 H Urine Mucus Few H Assessment and Plan Assessment: * Altered mental status, likely due to metabolic encephalopathy * Acute small bowel obstruction * History of urinary retention * Vitamin B12 deficiency * Rheumatoid arthritis * Hypertension * Hyperlipidemia * Family history of Loida Gehrig's disease Plan: * Surgery following the patient for small bowel obstruction. Patient undergoing small bowel follow-through. * MRI of the cervical spine 05/28/2024 revealed no evidence for disc herniation or significant spinal canal stenosis. Mild disc degeneration with associated osteoarthritic changes. * MRI brain without contrast 05/31/2024 revealed trace subdural hematomas along the bilateral cerebral convexities extending from front to back and additional trace subdural hematoma along the midline falx. These measure only 3 mm in thickness. Late subacute blood products were suspected. Moderate cerebral cortical volume loss. No hydrocephalus. * B12 < 150, folate 6.9, MMA 0.29, hemoglobin A1c 5.3, CK 384, rheumatoid factor <15, RPR nonreactive. TSH is normal 2.39. Continue B12 replacement. * UA shows moderate blood, trace leukocyte esterase, 9 WBCs and rare bacteria. Doubt UTI. Patient on ceftriaxone 1 g every 24 hours. * Patient would need EMG nerve conduction of all 4 extremities as an outpatient. * Patient had an EEG performed 05/30/2024 which was abnormal due to background slowing, suggestive of moderate encephalopathy and rare sharply contoured waves over the left temporal lobe can increase risk of cortical irritability. No electrographic seizure. * Neurology will follow clinically.
--- NOTE | 2024-06-07 14:30 | P.PN ---
Subjective Progress Note Date: 06/07/24 SURGICAL PROGRESS NOTE CHIEF COMPLAINT: SBO HISTORY OF PRESENT ILLNESS: Patient is more awake and alert today. He had the small bowel follow-through yesterday but the exam was canceled at 21 hours due to previous aspiration with resultant suction on the NG tube and lack of oral contrast throughout the exam. Aspiration of oral contrast into the left lower lung and a large stool burden throughout the colon noted. Patient has had 800 output to the NG tube last night and 200 this morning. He did have a low-grade of a temp of 100.7 at 1 AM and had been mildly tachycardic. Heart rate now improved. Patient reports his pain is less. He denies any bowel movement or flatus. Denies any nausea. Patient seen by neurology service and felt that his altered mental status was related to metabolic encephalopathy. PHYSICAL EXAM: VITAL SIGNS: Reviewed. GENERAL: no acute distress. ABDOMEN: Distended. Nontender. NEUROLOGIC: Alert and orientated to name and date ASSESSMENT: 1. High-grade small bowel obstruction 2. Large stool burden throughout the colon 3. Aspiration of oral contrast into the left lung 4. Metabolic encephalopathy PLAN: -Continue NG tube for decompression -Keep patient n.p.o. -Continue IV fluids -Continue antibiotics -Continue to monitor -Further recommendations forthcoming per surgeon Physician Crm Developer note has been reviewed by physician. Signing provider agrees with the documented findings, assessment, and plan of care. Objective - Vital Signs Vital signs: Vital Signs Temp 100.7 F H 06/07/24 01:20 Pulse 86 06/07/24 08:00 Resp 20 06/07/24 08:00 BP 122/82 06/07/24 08:00 Pulse Ox 96 06/07/24 08:00 FiO2 Intake & Output 06/06/24 06/07/24 06/07/24 18:59 06:59 18:59 Intake Total 1050 1600 Output Total 1175 1900 Balance -125 -300 Intake: Intake, IV Titration 1050 1600 Amount Dextrose 5%-0.9% NaCl 1, 900 1600 000 ml @ 100 mls/hr IV . Q10H [facility] Rx#:[id number] cefTRIAXone 1 gm In 50 Sodium Chloride 0.9% 50 ml @ 100 mls/hr IVPB Q24HR [facility] Rx#:[id number] metroNIDAZOLE-NS PMX 500 100 mg In Saline 1 100ml.bag @ 100 mls/hr IVPB Q8H [facility] Rx#:[id number] Output: Gastric Drainage 900 1000 Urine 275 900 Suprapubic 275 Other: Voiding Method Indwelling Catheter Indwelling Catheter Indwelling Catheter # Bowel Movements 0 0 - Labs CBC & Chem 7: 06/06/24 00:41 06/06/24 00:41
[2024-06-07 14:40] LABS: Basophils # (A) 0.1 k/uL (0-0.2); Basophils % (A) 1 %; Eosinophils % (A) 0 %; HCT 40.9 % (39.0-53.0); Hypochromasia Slight; Lymphocytes # (A) 0.6 k/uL (1.0-4.8); Lymphocytes % (A) 6 %; MCH 28.4 pg (25.0-35.0); MCHC 30.9 g/dL (31.0-37.0); Mean Platelet Volume 8.6; Monocytes # (A) 0.4 k/uL (0-1.0); Monocytes % (A) 5 %; Neutrophils # (A) 8.2 k/uL (1.3-7.7); Neutrophils % (A) 88 %; Platelet Count 238 k/uL (150-450); RBC 4.45 m/uL (4.30-5.90); RDW 12.4 % (11.5-15.5); WBC 9.3 k/uL (3.8-10.6)
[2024-06-07 14:41] LABS: African American GFR (CKD) >90 (>60 ml/min/1.73 sqM); Anion Gap 9 mmol/L; Blood Urea Nitrogen 45 mg/dL (9-20); Calcium 8.4 mg/dL (8.4-10.2); Carbon Dioxide 24 mmol/L (22-30); Chloride 108 mmol/L (98-107); Glucose 113 mg/dL (74-99); HGB 12.6 gm/dL (13.0-17.5); Non-African American GFR(CKD) >90 (>60 ml/min/1.73 sqM); Potassium 3.4 mmol/L (3.5-5.1); Sodium 141 mmol/L (137-145)
[2024-06-07] MEDS ORDERED: Potassium Replacement Protocol 1 EACH MISC MISCELLANE PRN (14:54)
[2024-06-07] MEDS: POTASSIUM CHLORIDE 10 MEQ in SODIUM CHLORIDE 0.9% 100 ML IVPB SCH (16:18)
--- NOTE | 2024-06-07 22:03 | HP ---
HISTORY AND PHYSICAL CHIEF COMPLAINT: Persistent vomiting. HISTORY OF PRESENT ILLNESS: This is another admission for this 73-year-old debilitated gentleman who recently went to the long-term. He was there for several days and then started to have nausea and vomiting of coffee-ground materials. He was sent to the emergency room where he was found to have a bowel obstruction. He is very lethargic and somewhat comatose. No other history can be obtained. PHYSICAL EXAMINATION: VITAL SIGNS: Normal. CHEST: Clear. CARDIAC: Normal. ABDOMEN: Slightly distended and he has diffuse tenderness with guarding. Bowel sounds are not heard. EXTREMITIES: Normal. NEUROLOGIC: He is comatose. ASSESSMENT: He is admitted to the hospital with diagnoses of, 1. Bowel obstruction. 2. Constipation. 3. General debility. 4. History of chronic obstructive pulmonary disease. PLAN: 1. Bedrest. 2. IV fluids. 3. NG tube suction. 4. General Surgery consult. STEVE / SILVERIO: [id number] /
--- NOTE | 2024-06-08 12:14 | P.PN ---
Subjective Progress Note Date: 06/07/24 Patient was seen for follow-up. Patient tells me that he did suffer from a fall 6 months ago. He complains of numbness in the brain. Denies any headache. Patient is not in pain today as compared to yesterday. Abdomen is less tender. Continues to have NG tube. No seizure-like activity. Objective - Vital Signs Vital signs: Vital Signs Temp 100.7 F H 06/07/24 01:20 Pulse 90 06/07/24 13:58 Resp 20 06/07/24 13:58 BP 108/73 06/07/24 13:58 Pulse Ox 99 06/07/24 13:58 FiO2 Intake & Output 06/06/24 06/07/24 06/07/24 18:59 06:59 18:59 Intake Total 1050 1600 800 Output Total 1175 1900 1600 Balance -125 -300 -800 Intake: Intake, IV Titration 1050 1600 800 Amount Dextrose 5%-0.9% NaCl 1, 900 1600 800 000 ml @ 100 mls/hr IV . Q10H [facility] Rx#:[id number] cefTRIAXone 1 gm In 50 Sodium Chloride 0.9% 50 ml @ 100 mls/hr IVPB Q24HR [facility] Rx#:[id number] metroNIDAZOLE-NS PMX 500 100 mg In Saline 1 100ml.bag @ 100 mls/hr IVPB Q8H [facility] Rx#:[id number] Output: Gastric Drainage 900 1000 400 Urine 526 956 3157 Suprapubic 275 Other: Voiding Method Indwelling Catheter Indwelling Catheter Indwelling Catheter # Bowel Movements 0 0 0 - Exam Unchanged. Mentation slightly better. - Labs CBC & Chem 7: 06/07/24 13:43 06/07/24 13:43 Labs: Abnormal Lab Results - Last 24 Hours (Table) 06/07/24 06/07/24 Range/Units 13:43 13:43 Hgb 12.6 L D (13.0-17.5) gm/dL MCHC 30.9 L (31.0-37.0) g/dL Neutrophils # 8.2 H (1.3-7.7) k/uL Lymphocytes # 0.6 L (1.0-4.8) k/uL Potassium 3.4 L (3.5-5.1) mmol/L Chloride 108 H (98-107) mmol/L BUN 45 H (9-20) mg/dL Glucose 113 H (74-99) mg/dL Assessment and Plan Assessment: * Altered mental status, likely due to metabolic encephalopathy * History of subdural hematoma/hygroma discovered 05/31/2024, treated conservatively * Acute small bowel obstruction * History of urinary retention * Vitamin B12 deficiency, with myelopathy * Rheumatoid arthritis * Hypertension * Hyperlipidemia * Family history of Loida Gehrig's disease Plan: * Surgery following the patient for small bowel obstruction. Patient undergoing small bowel follow-through. Patient has NG tube in place. * MRI of the cervical spine 05/28/2024 revealed no evidence for disc herniation or significant spinal canal stenosis. Mild disc degeneration with associated osteoarthritic changes. * MRI brain without contrast 05/31/2024 revealed trace subdural hematomas along the bilateral cerebral convexities extending from front to back and additional trace subdural hematoma along the midline falx. These measure only 3 mm in thickness. Late subacute blood products were suspected. Moderate cerebral cortical volume loss. No hydrocephalus. * Repeat CT head. * B12 < 150, folate 6.9, MMA 0.29, hemoglobin A1c 5.3, CK 384, rheumatoid factor <15, RPR nonreactive. TSH is normal 2.39. Continue B12 replacement. * UA shows moderate blood, trace leukocyte esterase, 9 WBCs and rare bacteria. Doubt UTI. Patient on ceftriaxone 1 g every 24 hours. * Patient would need EMG nerve conduction of all 4 extremities as an outpatient. * Patient had an EEG performed 05/30/2024 which was abnormal due to background slowing, suggestive of moderate encephalopathy and rare sharply contoured waves over the left temporal lobe can increase risk of cortical irritability. No electrographic seizure. * No reported clinical seizure-like activity. Hold off on antiepileptic medication.
--- NOTE | 2024-06-08 14:03 | P.PN ---
Subjective Progress Note Date: 06/08/24 SURGICAL PROGRESS NOTE CHIEF COMPLAINT: SBO HISTORY OF PRESENT ILLNESS: Patient lying in bed comfortably. Denies abdominal pain. Has NG tube in place. 400 mL bilious output through NG tube during the n ight. Minimal output through NG tube this morning. Patient reports still having no flatus or bowel movement. Afebrile. Mildly tachycardic. PHYSICAL EXAM: VITAL SIGNS: Reviewed. GENERAL: no acute distress. ABDOMEN: Distended. Nontender. NEUROLOGIC: Alert and orientated to name and date ASSESSMENT: 1. High-grade small bowel obstruction 2. Large stool burden throughout the colon 3. Aspiration of oral contrast into the left lung 4. Metabolic encephalopathy PLAN: -Continue NG tube for decompression -Keep patient n.p.o. -Continue IV fluids -Continue antibiotics -Continue to monitor Physician Home Theatre Technician note has been reviewed by physician. Signing provider agrees with the documented findings, assessment, and plan of care. Objective - Vital Signs Vital signs: Vital Signs Temp 99.7 F H 06/08/24 13:08 Pulse 107 H 06/08/24 13:08 Resp 16 06/08/24 13:08 BP 118/75 06/08/24 13:08 Pulse Ox 95 06/08/24 13:08 FiO2 Intake & Output 06/07/24 06/08/24 06/08/24 18:59 06:59 18:59 Intake Total 800 0 Output Total 1600 500 Balance -800 -500 Weight 77.111 kg Intake: Intake, IV Titration 800 Amount Dextrose 5%-0.9% NaCl 1, 800 000 ml @ 100 mls/hr IV . Q10H [facility] Rx#:[id number] Oral 0 Output: Gastric Drainage 400 Urine 1200 500 Other: Voiding Method Indwelling Catheter Indwelling Catheter Indwelling Catheter # Bowel Movements 0 - Labs CBC & Chem 7: 06/07/24 13:43 06/07/24 13:43 Labs: Abnormal Lab Results - Last 24 Hours (Table) 06/07/24 06/07/24 Range/Units 13:43 13:43 Hgb 12.6 L D (13.0-17.5) gm/dL MCHC 30.9 L (31.0-37.0) g/dL Neutrophils # 8.2 H (1.3-7.7) k/uL Lymphocytes # 0.6 L (1.0-4.8) k/uL Potassium 3.4 L (3.5-5.1) mmol/L Chloride 108 H (98-107) mmol/L BUN 45 H (9-20) mg/dL Glucose 113 H (74-99) mg/dL
--- NOTE | 2024-06-08 14:07 | CT ---
EXAMINATION TYPE: CT brain wo con CT DLP: 1197.2 mGycm, Automated exposure control for dose reduction was used. DATE OF EXAM: 06/08/2024 1:42 PM COMPARISON: MRI brain 05/31/2024, CT brain 05/27/2024 CLINICAL INDICATION:Male, 73 years old with history of Altered mental status, history of SDH, follow- up, AMS, history of SDH, follow up TECHNIQUE: Brain: Multiple axial CT images of the brain were obtained without IV contrast. . Coronal and sagitta l reformats reviewed. FINDINGS: Brain: Extra-axial spaces: No abnormal extra-axial fluid collections. Resolution of previously seen subdural hematomas. Ventricular system: Within normal limits Cerebral parenchyma: Mild cerebral atrophy. No acute intraparenchymal hemorrhage or mass effect. The cota-white junction is well differentiated. Cerebellum: Unremarkable. Mass effect: No evidence of midline shift. Intracranial vasculature: Atherosclerotic calcifications of the intracranial vessels. There is hyperd ensity identified within the left transverse and sigmoid sinuses extending into the internal jugular vein which is not displacing visualized in prior exam. Soft tissues: Normal. Calvarium/osseous structures: No depressed skull fracture. Paranasal sinuses and mastoid air cells: Clear Visualized orbits: Orbital contents are intact. Other: Partial visualization of NG tube. IMPRESSION: 1. Resolution of previously demonstrated subdural hematomas 2. Hyperdense appearance of the left transverse and sphenoid sinuses including the visualized portio n of the internal jugular vein. Raises concern for possible venous thrombosis. Further evaluation wit h CT or MR venogram is recommended. [facility], , 06/08/2024 2:05 PM
--- NOTE | 2024-06-08 16:06 | US ---
EXAMINATION TYPE: US venous doppler duplex LE DATE OF EXAM: 06/08/2024 12:38 PM COMPARISON: NONE CLINICAL INDICATION: Male, 73 years old with history of pain behind bilateral knees and calfs.; pain behind knees and calves, Pain, Swelling TECHNIQUE: The lower extremity deep venous system is examined utilizing real time linear array sonog karli with graded compression, color doppler sonography, and spectral doppler. SIDE PERFORMED: Bilateral FINDINGS: VESSELS IMAGED: Common Femoral Vein Deep Femoral Vein Greater Saphenous Vein * Femoral Vein Popliteal Vein Small Saphenous Vein * Proximal Calf Veins (* superficial vessels) Right Leg: Negative for DVT Left Leg: Negative for DVT Newborn Photographer notes: Exam limited by patient cooperation IMPRESSION: No evidence for DVT within the bilateral lower extremities imaged from the groin to the upper calves. [facility], , 06/08/2024 4:04 PM
[2024-06-09 08:57] LABS: HCT 34.9 % (39.6-50.0); MCH 28.4 pg (27.0-32.0); MCHC 31.5 g/dL (32.0-37.0); MCV 90.2 FL (80.0-97.0); Mean Platelet Volume 11.3 FL (9.5-12.2); NRBC Per 100 WBC 0 X 10*3/uL (0.00-0.01); Platelet Count 219 X 10*3/uL (140-440); RBC 3.87 X 10*6/uL (4.40-5.60); RDW 12.9 % (11.5-14.5); WBC 10.76 X 10*3/uL (4.50-10.00)
[2024-06-09 09:08] LABS: Blood Urea Nitrogen 20.4 mg/dL (9.0-27.0); Carbon Dioxide 24.2 mmol/L (21.6-31.8); Chloride 119 mmol/L (96-109); Glucose 98 mg/dL (70-110); Potassium 3.5 mmol/L (3.5-5.5); Sodium 151 mmol/L (135-145)
--- NOTE | 2024-06-09 11:05 | P.PN ---
Subjective Progress Note Date: 06/08/24 Patient was seen for follow-up. Patient tells me that he did suffer from a fall 6 months ago. He complains of numbness in the brain. Denies any headache. Abdomen is less tender. Continues to have NG tube. No seizure-like activity. Objective - Vital Signs Vital signs: Vital Signs Temp 99.7 F H 06/08/24 13:08 Pulse 107 H 06/08/24 13:08 Resp 16 06/08/24 13:08 BP 118/75 06/08/24 13:08 Pulse Ox 95 06/08/24 13:08 FiO2 Intake & Output 06/07/24 06/08/24 06/08/24 18:59 06:59 18:59 Intake Total 800 0 700 Output Total 1600 500 Balance -800 -500 700 Weight 77.111 kg Intake: Intake, IV Titration 800 700 Amount Dextrose 5%-0.9% NaCl 1, 800 600 000 ml @ 100 mls/hr IV . Q10H [facility] Rx#:[id number] metroNIDAZOLE-NS PMX 500 100 mg In Saline 1 100ml.bag @ 100 mls/hr IVPB Q8H [facility] Rx#:[id number] Oral 0 Output: Gastric Drainage 400 Urine 1200 500 Other: Voiding Method Indwelling Catheter Indwelling Catheter Indwelling Catheter # Bowel Movements 0 - Exam Unchanged. Mentation slightly better. - Labs CBC & Chem 7: 06/09/24 03:01 06/09/24 03:01 Assessment and Plan Assessment: * Altered mental status, likely due to metabolic encephalopathy * History of subdural hematoma/hygroma discovered 05/31/2024, treated conservatively * Acute small bowel obstruction * History of urinary retention * Vitamin B12 deficiency, with myelopathy * Rheumatoid arthritis * Hypertension * Hyperlipidemia * Family history of Loida Gehrig's disease Plan: * CT head revealed resolution of the previously demonstrated subdural hematomas. Hyperdense appearance of the left transverse and sphenoid sinuses including the visualized portion of the internal jugular vein. Raises concern for possible venous thrombosis. Further evaluation with CT or MR venogram is recommended. * We will check MRV brain rule out sinus thrombosis. Patient denies any headache. * Surgery following the patient for small bowel obstruction. Patient on NG tube for decompression. Patient on Flagyl 500 mg every 8 hours and ceftriaxone 1 g every 24 hours. * MRI of the cervical spine 05/28/2024 revealed no evidence for disc herniation or significant spinal canal stenosis. Mild disc degeneration with associated osteoarthritic changes. * MRI brain without contrast 05/31/2024 revealed trace subdural hematomas along the bilateral cerebral convexities extending from front to back and additional trace subdural hematoma along the midline falx. These measure only 3 mm in thickness. Late subacute blood products were suspected. Moderate cerebral cortical volume loss. No hydrocephalus. * B12 < 150, folate 6.9, MMA 0.29, hemoglobin A1c 5.3, CK 384, rheumatoid factor <15, RPR nonreactive. TSH is normal 2.39. Continue B12 replacement. * Patient would need EMG nerve conduction of all 4 extremities as an outpatient. * Patient had an EEG performed 05/30/2024 which was abnormal due to background slowing, suggestive of moderate encephalopathy and rare sharply contoured waves over the left temporal lobe can increase risk of cortical irritability. No electrographic seizure. * No reported clinical seizure-like activity. Hold off on antiepileptic med ication.
[2024-06-09] MEDS: NA PHOS,M-B/NA PHOS,DI-BA 133 ML ENEMA RECTAL ONE (12:52)
--- NOTE | 2024-06-09 14:05 | P.PN ---
Subjective Progress Note Date: 06/09/24 SURGICAL PROGRESS NOTE CHIEF COMPLAINT: SBO HISTORY OF PRESENT ILLNESS: Patient is lying in bed comfortably. Denies abdominal pain. His abdomen is softer. Minimal output through the NG tube. Afebrile. Mild tachycardia improved. WBC 9.3 up to 10.76 hemoglobin down from 12.6-11 sodium 151 potassium 3.5. Patient reporting no bowel movement or flatus. PHYSICAL EXAM: VITAL SIGNS: Reviewed. GENERAL: no acute distress. ABDOMEN: Distended. Nontender. NEUROLOGIC: Alert and orientated to name and date ASSESSMENT: 1. High-grade small bowel obstruction 2. Large stool burden throughout the colon 3. Aspiration of oral contrast into the left lung 4. Metabolic encephalopathy PLAN: -Check acute abdominal series to follow-up on bowel obstruction and pneumonia -Continue NG tube for decompression -Keep patient n.p.o. -Continue IV fluids -Continue antibiotics -Continue to monitor Physician Manager Research [employer] note has been reviewed by physician. Signing provider agrees with the documented findings, assessment, and plan of care. Attestation Patient seen and examined at bedside. Still a very difficult exam, however abdomen is much softer from initial exam 2 days ago. Will continue nasogastric tube, no significant output is noted. After rounds, nursing did update that patient had bowel movement. Abdominal x-rays were performed with continued dilated small bowel with air in the right colon. Will continue to monitor as patient did have bowel movement. Continue IV antibiotics for pneumonia. Hussain Dasilva, Objective - Vital Signs Vital signs: Vital Signs Temp 99.8 F H 06/09/24 13:42 Pulse 69 06/09/24 13:42 Resp 16 06/09/24 13:42 BP 117/75 06/09/24 13:42 Pulse Ox 98 06/09/24 13:42 FiO2 Intake & Output 06/08/24 06/09/24 06/09/24 18:59 06:59 18:59 Intake Total 700 1200 Output Total 400 1565 Balance 300 -365 Intake: Intake, IV Titration 700 1200 Amount Dextrose 5%-0.9% NaCl 1, 600 1200 000 ml @ 100 mls/hr IV . Q10H [facility] Rx#:[id number] metroNIDAZOLE-NS PMX 500 100 mg In Saline 1 100ml.bag @ 100 mls/hr IVPB Q8H [facility] Rx#:[id number] Output: Gastric Drainage 765 Urine 400 800 Other: Voiding Method Indwelling Catheter Indwelling Catheter - Labs CBC & Chem 7: 06/09/24 03:01 06/09/24 03:01 Labs: Abnormal Lab Results - Last 24 Hours (Table) 06/09/24 06/09/24 Range/Units 03:01 03:01 WBC 10.76 H (4.50-10.00) X 10*3/uL RBC 3.87 L (4.40-5.60) X 10*6/uL Hgb 11.0 L (13.0-17.0) g/dL Hct 34.9 L (39.6-50.0) % MCHC 31.5 L (32.0-37.0) g/dL Sodium 151 H (135-145) mmol/L Chloride 119 H (96-109) mmol/L BUN/Creatinine Ratio 25.50 H (12.00-20.00) Ratio Calcium 8.0 L (8.7-10.3) mg/dL
--- NOTE | 2024-06-09 15:31 | XR ---
EXAMINATION TYPE: XR abdomen acute w cxr DATE OF EXAM: 06/09/2024 COMPARISON: Radiograph chest and small bowel follow-through 06/06/2024 HISTORY: 73 year-old male abdominal distention, follow-up pneumonia FINDINGS: NG tube in place. Heart normal size. Increasing patchy mid and lower lung opacities. Prominent skinfo ld periphery of the right lung. Possible trace left effusion. No evidence for free intraperitoneal air. There appears dilatation up to 5.1 cm versus 4.[address] of 06/06/2024. There appears to be concurre nt air within the right side of the colon. Relative paucity of rectal air. Suprapubic catheter noted. IMPRESSION: 1. Worsening patchy bibasilar infiltrates. Correlate for infectious or aspiration pneumonitis. 2. Ongoing gassy bowel particularly the small bowel which is now abnormally dilated up to 5.1 cm vers us 4.6 cm on the patient's recent CT. There seems to be some air within the right side of the colon b ut with paucity of rectal air. The exact etiology for these findings is unclear. A severe ileus is in the differential. Given the degree of dilatation, the patient should be closely monitored. A clear t ransition point not identified at this time. [facility], , 06/09/2024 3:28 PM
[2024-06-09] MEDS: CYANOCOBALAMIN 1,000 MCG/ML 1 ML VIAL IM ONE (16:25)
--- NOTE | 2024-06-10 04:19 | XR ---
EXAM: XR Chest, 1 View CLINICAL HISTORY: ITS.REASON XR Reason: Verify NG tube position. TECHNIQUE: Frontal view of the chest. COMPARISON: No relevant prior studies available. IMPRESSION: NG tube side-port is at the level of the diaphragm. Advance 5 cm
[2024-06-10 08:23] LABS: HCT 35.8 % (39.6-50.0); HGB 11.3 g/dL (13.0-17.0); MCH 28.3 pg (27.0-32.0); MCHC 31.6 g/dL (32.0-37.0); MCV 89.5 FL (80.0-97.0); Mean Platelet Volume 11.2 FL (9.5-12.2); NRBC Per 100 WBC 0 X 10*3/uL (0.00-0.01); Platelet Count 202 X 10*3/uL (140-440); RDW 12.9 % (11.5-14.5); WBC 15.98 X 10*3/uL (4.50-10.00)
[2024-06-10 08:53] LABS: Blood Urea Nitrogen 14.7 mg/dL (9.0-27.0); Calcium 7.9 mg/dL (8.7-10.3); Carbon Dioxide 23.2 mmol/L (21.6-31.8); Chloride 121 mmol/L (96-109); Glucose 89 mg/dL (70-110); Potassium 3.4 mmol/L (3.5-5.5); Sodium 155 mmol/L (135-145)
[2024-06-10 10:07] LABS: Basophils # (A) 0.06 X 10*3/uL (0.00-0.10); Basophils % (A) 0.4 %; Eosinophils # (A) 0.12 X 10*3/uL (0.04-0.35); Eosinophils % (A) 0.8 %; Lymphocytes # (A) 1.27 X 10*3/uL (0.90-5.00); Lymphocytes % (A) 7.9 %; Monocytes # (A) 1.75 X 10*3/uL (0.20-1.00); Neutrophils # (A) 12.58 X 10*3/uL (1.80-7.70); Neutrophils % (A) 78.6 %; RBC Morphology Normal (Normal)
--- NOTE | 2024-06-10 11:29 | P.PN ---
Subjective Progress Note Date: 06/09/24 Patient was seen for follow-up. Patient is laying in the bed. He denies headache. He denies any abdominal pain. However the nurse and myself have noticed, when nobody is around, he is moaning as if in pain, but when you ask, he says no pain. No seizure-like activity. Objective - Vital Signs Vital signs: Vital Signs Temp 99.8 F H 06/09/24 13:42 Pulse 69 06/09/24 13:42 Resp 16 06/09/24 13:42 BP 117/75 06/09/24 13:42 Pulse Ox 98 06/09/24 13:42 FiO2 Intake & Output 06/08/24 06/09/24 06/09/24 18:59 06:59 18:59 Intake Total 700 1200 600 Output Total 400 1565 Balance 300 -365 600 Intake: Intake, IV Titration 700 1200 600 Amount Dextrose 5%-0.9% NaCl 1, 600 1200 600 000 ml @ 100 mls/hr IV . Q10H [facility] Rx#:[id number] metroNIDAZOLE-NS PMX 500 100 mg In Saline 1 100ml.bag @ 100 mls/hr IVPB Q8H [facility] Rx#:[id number] Output: Gastric Drainage 765 Urine 400 800 Other: Voiding Method Indwelling Catheter Indwelling Catheter - Exam Unchanged. Mentation slightly better. - Labs CBC & Chem 7: 06/10/24 05:01 06/10/24 05:01 Labs: Abnormal Lab Results - Last 24 Hours (Table) 06/09/24 06/09/24 Range/Units 03:01 03:01 WBC 10.76 H (4.50-10.00) X 10*3/uL RBC 3.87 L (4.40-5.60) X 10*6/uL Hgb 11.0 L (13.0-17.0) g/dL Hct 34.9 L (39.6-50.0) % MCHC 31.5 L (32.0-37.0) g/dL Sodium 151 H (135-145) mmol/L Chloride 119 H (96-109) mmol/L BUN/Creatinine Ratio 25.50 H (12.00-20.00) Ratio Calcium 8.0 L (8.7-10.3) mg/dL Assessment and Plan Assessment: * Altered mental status, likely due to metabolic encephalopathy * History of subdural hematoma/hygroma discovered 05/31/2024, treated conservatively * Abnormal CT head, rule out venous sinus thrombosis * Acute small bowel obstruction * History of urinary retention * Vitamin B12 deficiency, with myelopathy * Rheumatoid arthritis * Hypertension * Hyperlipidemia * Family history of Loida Gehrig's disease Plan: * CT head revealed resolution of the previously demonstrated subdural hematomas. Hyperdense appearance of the left transverse and sphenoid sinuses including the visualized portion of the internal jugular vein. Raises concern for possible venous thrombosis. Further evaluation with CT or MR venogram is recommended. * Awaiting MRV brain rule out sinus thrombosis. Patient denies any headache. * Surgery following the patient for small bowel obstruction. Patient on NG tube for decompression. Patient on Flagyl 500 mg every 8 hours and ceftriaxone 1 g every 24 hours. * MRI of the cervical spine 05/28/2024 revealed no evidence for disc herniation or significant spinal canal stenosis. Mild disc degeneration with associated osteoarthritic changes. * MRI brain without contrast 05/31/2024 revealed trace subdural hematomas along the bilateral cerebral convexities extending from front to back and additional trace subdural hematoma along the midline falx. These measure only 3 mm in thickness. Late subacute blood products were suspected. Moderate cerebral cortical volume loss. No hydrocephalus. * B12 < 150, folate 6.9, MMA 0.29, hemoglobin A1c 5.3, CK 384, rheumatoid factor <15, RPR nonreactive. TSH is normal 2.39. Continue B12 replacement. * Patient would need EMG nerve conduction of all 4 extremities as an outpatient. * Patient had an EEG performed 05/30/2024 which was abnormal due to background slowing, suggestive of moderate encephalopathy and rare sharply contoured waves over the left temporal lobe can increase risk of cortical irritability. No electrographic seizure. * No reported clinical seizure-like activity. Hold off on antiepileptic medication.
[2024-06-10 11:45] VITALS: BMI 26.6
--- NOTE | 2024-06-10 13:16 | MR ---
EXAMINATION TYPE: MR venography head wo con DATE OF EXAM: 06/10/2024 1:00 PM COMPARISON: None. CLINICAL INDICATION: Male, 73 years old with history of Abnormal CT, r/o dural venous sinus thrombus; [facility], TECHNIQUE: MRV of the brain was performed utilizing two-dimensional [id number] technique. FINDINGS: Limited exam due to motion. The sagittal sinus appears patent. There is poor visualization of the thelma ateral transverse sinuses. IMPRESSION: Motion limited exam due, poor visualization of the transverse sinuses.. Consider repeat exam with CT venogram. The sagittal sinus appears patent. [facility], , 06/10/2024 1:13 PM
[2024-06-10] MEDS: POTASSIUM CHLORIDE ER 20 MEQ TAB.ER PO STA (14:46)
--- NOTE | 2024-06-10 15:08 | P.PN ---
Subjective Progress Note Date: 06/10/24 SURGICAL PROGRESS NOTE CHIEF COMPLAINT: SBO HISTORY OF PRESENT ILLNESS: Patient lying in bed comfortably. He did have a bowel movement yesterday after enema. Minimal output through NG tube this morning. 300 output reported through the night. He denies any abdominal pain. Denies any nausea. Afebrile. WBC is up from 10-15. hgb 11.3 plt 202 k 3.4. Acute abdominal series reports worsening patchy bibasilar infiltrates correlate for infectious or aspiration pneumonitis. Ongoing gassy bowel particularly the small bowel which is now abnormality dilated up to 5.1 cm versus 4.6 cm. A severe ileus is in the differential. PHYSICAL EXAM: VITAL SIGNS: Reviewed. GENERAL: no acute distress. ABDOMEN: Abdomen softer. Nontender. Nontender. NEUROLOGIC: Alert and orientated to name and date ASSESSMENT: 1. Small bowel obstruction 2. Large stool burden throughout the colon 3. Aspiration of oral contrast into the left lung 4. Metabolic encephalopathy 5. Hypokalemia PLAN: -Patient with minimal NG tube output. Had bowel movement. Discontinue NG tube. Start clear liquids. -Repeat abdominal x-ray ordered -Dulcolax suppositories daily ordered -Continue antibiotics -Replace potassium Physician Demolitionist note has been reviewed by physician. Signing provider agrees with the documented findings, assessment, and plan of care. Objective - Vital Signs Vital signs: Vital Signs Temp 98.7 F 06/10/24 13:40 Pulse 97 06/10/24 13:40 Resp 18 06/10/24 13:40 BP 135/82 06/10/24 13:40 Pulse Ox 97 06/10/24 13:40 FiO2 Intake & Output 06/09/24 06/10/24 06/10/24 18:59 06:59 18:59 Intake Total 600 Output Total 300 400 Balance 300 -400 Weight 77.111 kg Intake: Intake, IV Titration 600 Amount Dextrose 5%-0.9% NaCl 1, 600 000 ml @ 100 mls/hr IV . Q10H [facility] Rx#:[id number] Output: Gastric Drainage 300 Urine 300 100 Other: Voiding Method Indwelling Catheter Indwelling Catheter Indwelling Catheter - Labs CBC & Chem 7: 06/11/24 05:41 06/10/24 05:01 Labs: Abnormal Lab Results - Last 24 Hours (Table) 06/10/24 06/10/24 Range/Units 05:01 05:01 WBC 15.98 H (4.50-10.00) X 10*3/uL RBC 4.00 L (4.40-5.60) X 10*6/uL Hgb 11.3 L (13.0-17.0) g/dL Hct 35.8 L (39.6-50.0) % MCHC 31.6 L (32.0-37.0) g/dL Immature Gran # 0.20 H (0.00-0.04) X 10*3/uL Neutrophils # 12.58 H (1.80-7.70) X 10*3/uL Monocytes # 1.75 H (0.20-1.00) X 10*3/uL Sodium 155 H (135-145) mmol/L Potassium 3.4 L (3.5-5.5) mmol/L Chloride 121 H (96-109) mmol/L BUN/Creatinine Ratio 21.00 H (12.00-20.00) Ratio Calcium 7.9 L (8.7-10.3) mg/dL Assessment and Plan Assessment: 73 yo s/p right hemicolectomy -ileus -continue ngt -continue suppositories Time with Patient: Less than 30
--- NOTE | 2024-06-10 15:35 | XR ---
EXAMINATION TYPE: XR abdomen 2V DATE OF EXAM: 06/10/2024 3:29 PM COMPARISON: 05/29/2024 CLINICAL INDICATION: Male, 73 years old with history of follow up on bowel dilation; [facility] TECHNIQUE: Two views of the abdomen were obtained. FINDINGS: Tubing projects over the abdomen. There is gaseous dilation of bowel throughout the abdomen with large amount of stool. No evidence for fracture. Left lung base aspiration may remain present. IMPRESSION: Similar gaseous dilation of bowel in the abdomen. Correlate for ileus versus obstruction. [facility], , 06/10/2024 3:33 PM
[2024-06-10] MEDS: bisacodyL 10 MG SUPP RECTAL SCH (17:48)
[2024-06-10] MEDS: CYANOCOBALAMIN 1,000 MCG/ML 1 ML VIAL IM SCH (21:03)
[2024-06-10] MEDS: polyethylene glycoL 3350 17 GM POWD.PACK PO SCH (21:13)
--- NOTE | 2024-06-10 23:35 | P.PN ---
Subjective Progress Note Date: 06/10/24 Patient was seen for follow-up. Patient is laying in the bed. Patient yells "help help", and I asked what he needs, requests water. Denies any headache, denies any belly pain. NG tube is out. Objective - Vital Signs Vital signs: Vital Signs Temp 98.7 F 06/10/24 13:40 Pulse 97 06/10/24 13:40 Resp 18 06/10/24 13:40 BP 135/82 06/10/24 13:40 Pulse Ox 97 06/10/24 13:40 FiO2 Intake & Output 06/09/24 06/10/24 06/10/24 18:59 06:59 18:59 Intake Total 600 Output Total 300 400 Balance 300 -400 Weight 77.111 kg Intake: Intake, IV Titration 600 Amount Dextrose 5%-0.9% NaCl 1, 600 000 ml @ 100 mls/hr IV . Q10H [facility] Rx#:[id number] Output: Gastric Drainage 300 Urine 300 100 Other: Voiding Method Indwelling Catheter Indwelling Catheter Indwelling Catheter - Exam Unchanged. Mentation slightly better. - Labs CBC & Chem 7: 06/10/24 05:01 06/10/24 05:01 Labs: Abnormal Lab Results - Last 24 Hours (Table) 06/10/24 06/10/24 Range/Units 05:01 05:01 WBC 15.98 H (4.50-10.00) X 10*3/uL RBC 4.00 L (4.40-5.60) X 10*6/uL Hgb 11.3 L (13.0-17.0) g/dL Hct 35.8 L (39.6-50.0) % MCHC 31.6 L (32.0-37.0) g/dL Immature Gran # 0.20 H (0.00-0.04) X 10*3/uL Neutrophils # 12.58 H (1.80-7.70) X 10*3/uL Monocytes # 1.75 H (0.20-1.00) X 10*3/uL Sodium 155 H (135-145) mmol/L Potassium 3.4 L (3.5-5.5) mmol/L Chloride 121 H (96-109) mmol/L BUN/Creatinine Ratio 21.00 H (12.00-20.00) Ratio Calcium 7.9 L (8.7-10.3) mg/dL Assessment and Plan Assessment: * Altered mental status, likely due to metabolic encephalopathy * History of subdural hematoma/hygroma discovered 05/31/2024, treated conservatively * Abnormal CT head, rule out venous sinus thrombosis * Hyponatremia * Acute small bowel obstruction * History of urinary retention * Vitamin B12 deficiency, with myelopathy * Rheumatoid arthritis * Hypertension * Hyperlipidemia * Family history of Loida Gehrig's disease Plan: * CT head revealed resolution of the previously demonstrated subdural hematomas. Hyperdense appearance of the left transverse and sphenoid sinuses including the visualized portion of the internal jugular vein. Raises concern for possible venous thrombosis. Further evaluation with CT or MR venogram is recommended. * MRV brain was motion limited exam due to poor visualization of the transverse sinuses. Consider repeat exam with CT venogram. The sagittal sinus appears patent. Patient denies any headache. We will check ultrasound of the neck to rule out any IJ thrombus. * Surgery following the patient for small bowel obstruction. Patient is off NGT. Patient on Flagyl 500 mg every 8 hours and ceftriaxone 1 g every 24 hours. * MRI of the cervical spine 05/28/2024 revealed no evidence for disc herniation or significant spinal canal stenosis. Mild disc degeneration with associated osteoarthritic changes. * MRI brain without contrast 05/31/2024 revealed trace subdural hematomas along the bilateral cerebral convexities extending from front to back and additional trace subdural hematoma along the midline falx. These measure only 3 mm in thickness. Late subacute blood products were suspected. Moderate cerebral cortical volume loss. No hydrocephalus. * B12 < 150, folate 6.9, MMA 0.29, hemoglobin A1c 5.3, CK 384, rheumatoid factor <15, RPR nonreactive. TSH is normal 2.39. Continue B12 replacement. * Patient would need EMG nerve conduction of all 4 extremities as an outpatient. * Patient had an EEG performed 05/30/2024 which was abnormal due to background slowing, suggestive of moderate encephalopathy and rare sharply contoured waves over the left temporal lobe can increase risk of cortical irritability. No electrographic seizure. * No reported clinical seizure-like activity. Hold off on antiepileptic medication. * Treatment of hyponatremia as per IM.
[2024-06-11] MEDS ORDERED: ZINC OXIDE PASTE (Z-GUARD) 1 APPLIC TOPICAL PRN (05:10)
--- NOTE | 2024-06-11 08:09 | US ---
EXAMINATION TYPE: US venous doppler duplex UE LT DATE OF EXAM: 06/11/2024 COMPARISON: NONE CLINICAL INDICATION: Male, 73 years old with history of Check left IJ vein for any thrombus; Patient not able to give signs, symptoms, or history TECHNIQUE: Limited Grayscale, color Doppler and spectral Doppler imaging of the upper extremity. SIDE PERFORMED: Left FINDINGS: Right Arm: NA Left Arm: No DVT seen within the IJV or subclavian vein Grayscale, color doppler, spectral doppler imaging performed of the deep veins of the upper extremiti es. IMPRESSION: No evidence for deep vein thrombosis within the left internal jugular vein. [facility], , 06/11/2024 8:06 AM
[2024-06-11 09:08] LABS: Basophils # (A) 0.04 X 10*3/uL (0.00-0.10); Basophils % (A) 0.3 %; Eosinophils # (A) 0.22 X 10*3/uL (0.04-0.35); Eosinophils % (A) 1.5 %; HCT 35.9 % (39.6-50.0); HGB 11.4 g/dL (13.0-17.0); Lymphocytes # (A) 1.25 X 10*3/uL (0.90-5.00); Lymphocytes % (A) 8.6 %; MCH 28.7 pg (27.0-32.0); MCHC 31.8 g/dL (32.0-37.0); MCV 90.4 FL (80.0-97.0); Mean Platelet Volume 11.5 FL (9.5-12.2); Monocytes # (A) 1.44 X 10*3/uL (0.20-1.00); Monocytes % (A) 9.9 %; NRBC Per 100 WBC 0 X 10*3/uL (0.00-0.01); Neutrophils # (A) 11.48 X 10*3/uL (1.80-7.70); Neutrophils % (A) 78.7 %; Platelet Count 182 X 10*3/uL (140-440); RBC 3.97 X 10*6/uL (4.40-5.60); RDW 13.1 % (11.5-14.5); WBC 14.58 X 10*3/uL (4.50-10.00)
[2024-06-11 09:14] LABS: BUN/Creat Ratio 21.43 Ratio (12.00-20.00); Calcium 7.8 mg/dL (8.7-10.3); Carbon Dioxide 25.3 mmol/L (21.6-31.8); Chloride 119 mmol/L (96-109); Glucose 100 mg/dL (70-110); Potassium 3.4 mmol/L (3.5-5.5); Sodium 153 mmol/L (135-145)
--- NOTE | 2024-06-11 11:10 | P.PN ---
Progress Note - Text Progress Note Date: 06/11/24 CHIEF COMPLAINT: SBO HISTORY OF PRESENT ILLNESS: No acute events overnight. Denies nausea and v omiting. He states he is passing gas. He states he is not hungry. PHYSICAL EXAM: VITAL SIGNS: Reviewed. GENERAL: no acute distress. ABDOMEN: Abdomen softer. Nontender. Nontender. NEUROLOGIC: Alert and orientated to name and date ASSESSMENT: 1. Small bowel obstruction 2. Large stool burden throughout the colon 3. Aspiration of oral contrast into the left lung 4. Metabolic encephalopathy 5. Hypokalemia PLAN: -Continue Clear Liquid Diet -Dulcolax suppositories daily ordered -Continue antibiotics Jonas Goncalves DO [facility] [phone]
--- NOTE | 2024-06-11 15:57 | CT ---
EXAMINATION TYPE: CT brain wo con DATE OF EXAM: 06/11/2024 3:29 PM COMPARISON: 05/12/2024. CLINICAL INDICATION: Male, 73 years old with history of Folow up, r/o ?thrombus is left transverse si nus, possible venous thrombus TECHNIQUE: Brain: Axial CT images of the brain were obtained with coronal and sagittal reformats created and rev iewed. Contrast used: None. Oral contrast used: None. CT DLP: 1095 mGycm, Automated exposure control for dose reduction was used. FINDINGS: Brain: Extra-axial spaces: No abnormal extra-axial fluid collections. Ventricular system: Within normal limits Cerebral parenchyma: No acute intraparenchymal hemorrhage or mass effect. The cota-white junction is well differentiated. Cerebellum: Unremarkable. Mass effect: No evidence of midline shift. Intracranial vasculature: Atherosclerotic calcifications of the intracranial vessels. Soft tissues: Normal. Calvarium/osseous structures: No depressed skull fracture. Paranasal sinuses and mastoid air cells: Mild scattered paranasal sinus disease. Visualized orbits: Orbital contents are intact. Hyperdense left transverse sinus extending to the sigmoid sinus and superior neck., Straight sinus is also hyperdense see suggesting thrombus. IMPRESSION: Evidence of left transverse sinus thrombus extending into the superior neck. [facility], , 06/11/2024 3:54 PM
[2024-06-11] MEDS: ONDANSETRON 4 MG/2 ML VIAL IVP PRN (20:06)
--- NOTE | 2024-06-11 23:14 | PN ---
PROGRESS NOTE DATE OF SERVICE: 06/08/2024 CHIEF COMPLAINT: Bowel obstruction. HISTORY OF PRESENT ILLNESS: This gentleman still has significant amount of discomfort. He is sedated, but his abdomen is distended and quite tender. He is being followed by Surgery. It looks as though he may also have aspirated. REVIEW OF SYSTEMS: Unobtainable. PHYSICAL EXAMINATION: VITAL SIGNS: Normal. CHEST: Clear. CARDIAC: Normal. ABDOMEN: Slightly distended, and he has generalized tenderness. Bowel sounds are absent. He is delirious and semi-comatose. IMPRESSION: 1. Bowel obstruction. 2. Semi-coma. 3. Delirium. PLAN: Continue with IV fluids and nasogastric tube suction and follow with Surgery. MMODL / IJN: [id number] /
--- NOTE | 2024-06-11 23:41 | PN ---
PROGRESS NOTE DATE OF SERVICE: 06/09/2024 CHIEF COMPLAINT: Bowel obstruction. HISTORY OF PRESENT ILLNESS: This gentleman's condition is about the same. He remains lethargic and seems to be in pain on and off. His vital signs are normal. His sodium has gone up to 151. PHYSICAL EXAMINATION: CHEST: Clear. CARDIAC: Normal sinus rhythm. ABDOMEN: steaming cabinet tender, but bowel sounds are heard. This could be largely due to constipation. We will give him a trial of a Fleet Enema. MMODL / IJN: [id number] /
--- NOTE | 2024-06-11 23:56 | PN ---
PROGRESS NOTE DATE OF SERVICE: 06/10/2024 CHIEF COMPLAINT: Bowel obstruction. HISTORY OF PRESENT ILLNESS: There has been no interval change. This gentleman remains semi-comatose. He is starting to pass gas, however, and he is being followed by Surgery. PHYSICAL EXAMINATION: ABDOMEN: Remains slightly distended and tender. Bowel sounds are present. IMPRESSION: 1. Bowel obstruction. 2. Constipation. 3. Delirium. PLAN: Continue to follow. NG tube has been removed. MMODL / IJN: [id number] /
--- NOTE | 2024-06-12 00:16 | PN ---
PROGRESS NOTE DATE OF SERVICE: 06/11/2024 CHIEF COMPLAINT: Bowel obstruction. HISTORY OF PRESENT ILLNESS: This gentleman is starting to pass gas. There has been no interval change due to his pneumonitis. PHYSICAL EXAMINATION: CHEST: Clear. CARDIAC: Normal. ABDOMEN: Still distended and tender. Bowel sounds are heard. NEUROLOGIC: He remains semi-comatose. IMPRESSION: 1. Bowel obstruction. 2. Constipation. PLAN: MiraLAX has been added, and we will further assess how this helps. MMODL / IJN: [id number] /
--- NOTE | 2024-06-12 11:07 | P.PN ---
Progress Note - Text Progress Note Date: 06/12/24 CHIEF COMPLAINT: SBO HISTORY OF PRESENT ILLNESS: No acute events overnight. Denies nausea and v omiting. He states he is passing gas. He states he is not hungry. PHYSICAL EXAM: VITAL SIGNS: Reviewed. GENERAL: no acute distress. ABDOMEN: Abdomen softer. Nontender. Nontender. NEUROLOGIC: Alert and orientated to name and date ASSESSMENT: 1. Small bowel obstruction 2. Large stool burden throughout the colon 3. Aspiration of oral contrast into the left lung 4. Metabolic encephalopathy 5. Hypokalemia PLAN: -Continue Clear Liquid Diet -Dulcolax suppositories daily ordered -Continue antibiotics Jonas Goncalves DO [facility] [phone]
--- NOTE | 2024-06-12 11:29 | P.PN ---
Subjective Progress Note Date: 06/11/24 Patient was seen for follow-up. Patient is laying in the bed. Patient denies any headache. He states his legs are bothering. Denies any abdominal pain, no dizziness. Objective - Vital Signs Vital signs: Vital Signs Temp 98.3 F 06/11/24 06:50 Pulse 95 06/11/24 06:50 Resp 14 06/11/24 06:50 BP 121/75 06/11/24 06:50 Pulse Ox 99 06/11/24 06:50 FiO2 Intake & Output 06/10/24 06/11/24 06/11/24 18:59 06:59 18:59 Output Total 250 50 Balance -250 -50 Weight 77.111 kg Output: Urine 250 50 Other: Voiding Method Indwelling Catheter Indwelling Catheter Indwelling Catheter - Exam Patient is alert and awake, appears slightly more calm today. Patient's visual felix are full. Face is symmetric. On muscle strength testing, patient cannot lift his arms up. His biceps is 4/5- , triceps 3/4, global product manager 4+/5-. Patient did not cooperate well with the lower extremity testing. - Labs CBC & Chem 7: 06/11/24 05:41 06/11/24 05:41 Labs: Abnormal Lab Results - Last 24 Hours (Table) 06/11/24 06/11/24 Range/Units 05:41 05:41 WBC 14.58 H (4.50-10.00) X 10*3/uL RBC 3.97 L (4.40-5.60) X 10*6/uL Hgb 11.4 L (13.0-17.0) g/dL Hct 35.9 L (39.6-50.0) % MCHC 31.8 L (32.0-37.0) g/dL Immature Gran # 0.15 H (0.00-0.04) X 10*3/uL Neutrophils # 11.48 H (1.80-7.70) X 10*3/uL Monocytes # 1.44 H (0.20-1.00) X 10*3/uL Sodium 153 H (135-145) mmol/L Potassium 3.4 L (3.5-5.5) mmol/L Chloride 119 H (96-109) mmol/L BUN/Creatinine Ratio 21.43 H (12.00-20.00) Ratio Calcium 7.8 L (8.7-10.3) mg/dL Assessment and Plan Assessment: * Altered mental status, likely due to metabolic encephalopathy * History of subdural hematoma/hygroma discovered 05/31/2024, treated cons ervatively * Abnormal CT head, rule out venous sinus thrombosis * Hyponatremia * Acute small bowel obstruction * History of urinary retention * Vitamin B12 deficiency, with myelopathy * Rheumatoid arthritis * Hypertension * Hyperlipidemia * Family history of Loida Gehrig's disease Plan: * CT head revealed resolution of the previously demonstrated subdural hematomas. Hyperdense appearance of the left transverse and sphenoid sinuses including the visualized portion of the internal jugular vein. Raises concern for possible venous thrombosis. Further evaluation with CT or MR venogram is recommended. * MRV brain was motion limited exam due to poor visualization of the transverse sinuses. Consider repeat exam with CT venogram. The sagittal sinus appears patent. Patient denies any headache. * Venous Doppler of the neck revealed no evidence of DVT within the left internal jugular vein. * Repeat CT head today to follow-up on left transverse venous sinus thrombus. * Surgery following the patient for small bowel obstruction. Patient is off NGT. Patient on Flagyl 500 mg every 8 hours and ceftriaxone 1 g every 24 hours. * MRI of the cervical spine 05/28/2024 revealed no evidence for disc herniation or significant spinal canal stenosis. Mild disc degeneration with associated osteoarthritic changes. * MRI brain without contrast 05/31/2024 revealed trace subdural hematomas along the bilateral cerebral convexities extending from front to back and additional trace subdural hematoma along the midline falx. These measure only 3 mm in thickness. Late subacute blood products were suspected. Moderate cerebral cortical volume loss. No hydrocephalus. * B12 < 150, folate 6.9, MMA 0.29, hemoglobin A1c 5.3, CK 384, rheumatoid factor <15, RPR nonreactive. TSH is normal 2.39. Continue B12 replacement. * Patient would need EMG nerve conduction of all 4 extremities as an outpatient. * Patient had an EEG performed 05/30/2024 which was abnormal due to background slowing, suggestive of moderate encephalopathy and rare sharply contoured waves over the left temporal lobe can increase risk of cortical irritability. No electrographic seizure. * No reported clinical seizure-like activity. Hold off on antiepileptic medication. * Treatment of hypernatremia as per IM.
--- NOTE | 2024-06-12 13:00 | CT ---
EXAMINATION TYPE: CT Venogram Head DATE OF EXAM: 06/12/2024 12:34 PM COMPARISON: CT 06/11/2024, 06/08/2024.. CLINICAL INDICATION: Male, 73 years old with history of Venous sinus thrombosis, to confirm, Venous s inus thrombosis, to confirm, TECHNIQUE: Axial CT imaging of the head with IV contrast with delayed imaging for the veins. Contrast used:100 mL of Isovue 370 with IV Contrast, (none if empty) Oral contrast used: (none if empty) CT DLP: 1197.4 mGycm, Automated exposure control for dose reduction was used. FINDINGS: Nonvisualization of contrast within the left sagittal sinus. There is filling defect extending from t he straight sinus into the left sagittal sinus and down into the left jugular vein. The right transverse sinus and sagittal sinus are patent. The deep vessels of the brain appear opacif ied. No evidence for cavernous sinus thrombosis. IMPRESSION: Venous sinus thrombosis confirmed again involving the straight sinus and left transverse sinus extend ing into left sigmoid sinus and the internal jugular vein. [facility], , 06/12/2024 12:57 PM
[2024-06-12] MEDS ORDERED: HEPARIN SODIUM 1,000 UN/ML (10ML VL) IV PRN (17:09)
[2024-06-12] MEDS: HEPARIN SODIUM 1,000 UN/ML (10ML VL) IV ONE (17:25)
[2024-06-12] MEDS: HEPARIN SOD,PORK IN 0.45% NACL 25,000 UNIT in 0.45% NACL 1 250ML.BAG IV SCH (17:25)
[2024-06-12 17:35] LABS: Basophils % (A) 0 %; Eosinophils # (A) 0.2 k/uL (0-0.7); Eosinophils % (A) 1 %; HCT 38.4 % (39.0-53.0); HGB 12.5 gm/dL (13.0-17.5); Hypochromasia Slight; Lymphocytes # (A) 1.2 k/uL (1.0-4.8); Lymphocytes % (A) 9 %; MCH 29.7 pg (25.0-35.0); MCHC 32.5 g/dL (31.0-37.0); MCV 91.3 fL (80.0-100.0); Mean Platelet Volume 9.1; Monocytes # (A) 0.5 k/uL (0-1.0); Monocytes % (A) 4 %; Neutrophils # (A) 10.7 k/uL (1.3-7.7); Neutrophils % (A) 84 %; Platelet Count 142 k/uL (150-450); RBC 4.21 m/uL (4.30-5.90); RDW 12.5 % (11.5-15.5); WBC 12.7 k/uL (3.8-10.6)
[2024-06-12 17:50] LABS: INR 1.6 (<1.2); Partial Thromboplastin Time 24.4 sec (22.0-30.0)
--- NOTE | 2024-06-13 02:00 | P.PN ---
Subjective Progress Note Date: 06/12/24 Patient was seen for follow-up. Patient is laying in the bed. Patient admits to having headache 2/, not very bothersome. No new concerns. Objective - Vital Signs Vital signs: Vital Signs Temp 97.5 F L 06/12/24 13:15 Pulse 77 06/12/24 13:15 Resp 18 06/12/24 13:15 BP 119/78 06/12/24 13:15 Pulse Ox 100 06/12/24 13:15 FiO2 Intake & Output 06/11/24 06/12/24 06/12/24 19:59 06:59 18:59 Output Total Balance Output: Urine Other: Voiding Method Indwelling Catheter # Voids - Exam Patient is alert and awake, appears slightly more calm today. Patient's visual felix are full. Face is symmetric. On muscle strength testing, patient cannot lift his arms up. 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 Patient did not cooperate well with the lower extremity testing. - Labs CBC & Chem 7: 06/12/24 17:25 06/11/24 05:41 Assessment and Plan Assessment: * Altered mental status, likely due to metabolic encephalopathy * History of subdural hematoma/hygroma discovered 05/31/2024, treated conservatively * Abnormal CT head, rule out venous sinus thrombosis * Hyponatremia * Acute small bowel obstruction * History of urinary retention * Vitamin B12 deficiency, with myelopathy * Rheumatoid arthritis * Hypertension * Hyperlipidemia * Family history of Loida Gehrig's disease Plan: * CT head revealed resolution of the previously demonstrated subdural hematomas. Hyperdense appearance of the left transverse and sphenoid sinuses including the visualized portion of the internal jugular vein. Raises concern for possible venous thrombosis. Further evaluation with CT or MR venogram is recommended. * MRV brain was motion limited exam due to poor visualization of the transverse sinuses. Consider repeat exam with CT venogram. The sagittal sinus appears patent. Patient denies any headache. * Venous Doppler of the neck revealed no evidence of DVT within the left internal jugular vein. * Repeat CT head revealed hyperdense left transverse sinus extending to the sigmoid sinus and superior neck. Straight sinus is also hyperdense suggesting thrombus. * Stat CTV revealed venous sinus thrombosis confirmed again involving the straight sinus and the left transverse sinus extending into the left sigmoid sinus and the internal jugular vein. Patient interestingly denies headache. * We will start heparin, DVT protocol. Nursing staff discussed with surgery, and they cleared for heparin. Tried to contact primary physician as well. * Check MRI of the brain, evaluate for CVA, any hemorrhage. Patient is neurologically stable at this time. * Surgery following the patient for small bowel obstruction. Patient is off NGT. Patient on Flagyl 500 mg every 8 hours and ceftriaxone 1 g every 24 hours. * MRI of the cervical spine 05/28/2024 revealed no evidence for disc herniation or significant spinal canal stenosis. Mild disc degeneration with associated osteoarthritic changes. * MRI brain without contrast 05/31/2024 revealed trace subdural hematomas along the bilateral cerebral convexities extending from front to back and additional trace subdural hematoma along the midline falx. These measure only 3 mm in thickness. Late subacute blood products were suspected. Moderate cerebral co rtical volume loss. No hydrocephalus. * B12 < 150, folate 6.9, MMA 0.29, hemoglobin A1c 5.3, CK 384, rheumatoid factor <15, RPR nonreactive. TSH is normal 2.39. Continue B12 replacement. * Patient would need EMG nerve conduction of all 4 extremities as an outpatient. * Patient had an EEG performed 05/30/2024 which was abnormal due to background slowing, suggestive of moderate encephalopathy and rare sharply contoured waves over the left temporal lobe can increase risk of cortical irritability. No electrographic seizure. * No reported clinical seizure-like activity. Hold off on antiepileptic medication. * Treatment of hypernatremia as per IM. * Dr. Jewel Gay to resume neurology service in the morning.
--- NOTE | 2024-06-13 03:45 | PN ---
PROGRESS NOTE DATE OF SERVICE: 06/12/2024 CHIEF COMPLAINT: Bowel obstruction and delirium. HISTORY OF PRESENT ILLNESS: This gentleman is a little bit more awake and appropriate than he has been. PHYSICAL EXAMINATION: LUNGS: Breath sounds are heard bilaterally. CARDIAC: Normal. ABDOMEN: Slightly protuberant, but less tender and there are no definite masses. IMPRESSION: 1. Bowel obstruction. 2. Constipation. 3. General debility and weakness. PLAN: Continue with IV fluids and bowel program. MMODL / IJN: [id number] /
[2024-06-13 09:46] LABS: Basophils % (A) 0 %; Eosinophils # (A) 0.2 k/uL (0-0.7); Eosinophils % (A) 1 %; HCT 34.2 % (39.0-53.0); Hypochromasia Slight; Lymphocytes # (A) 0.8 k/uL (1.0-4.8); Lymphocytes % (A) 7 %; MCH 29.3 pg (25.0-35.0); MCHC 32.3 g/dL (31.0-37.0); MCV 90.7 fL (80.0-100.0); Mean Platelet Volume 9.8; Monocytes # (A) 0.5 k/uL (0-1.0); Monocytes % (A) 5 %; Neutrophils # (A) 9.6 k/uL (1.3-7.7); Neutrophils % (A) 85 %; Platelet Count 134 k/uL (150-450); RBC 3.77 m/uL (4.30-5.90); RDW 12.7 % (11.5-15.5); WBC 11.3 k/uL (3.8-10.6)
--- NOTE | 2024-06-13 10:56 | MR ---
EXAMINATION TYPE: MR brain wo con DATE OF EXAM: 06/13/2024 10:18 AM COMPARISON: MRV 06/10/2024, CT brain 06/08/2024 CLINICAL INDICATION: Male, 73 years old with history of Venous sinus thrombosis, rule out CVA, Venous sinus thrombosis, rule out CVA. TECHNIQUE: Multiplanar, multiecho imaging on a 3.0 Julita magnet is performed through the brain. Stud y is performed within 24 hours of arrival to the hospital.Multiplanar, multiecho imaging on a 3.0 Mary la magnet is performed through the knee. IV Contrast: cc (None if empty) FINDINGS: The craniovertebral junction is normal. The pituitary is normal. Diffusion-weighted imaging is performed. No abnormal hyperintensity is present to suggest an acute i ntracranial infarct or acute ischemic change. No suspicious signal abnormality evident. No suspicious filling defects identified. Ventricles and sulci are appropriate for the patient age. There may be some fluid within the left mastoid air cells. Correlate for acute left mastoiditis. IMPRESSION: 1. No suspicious acute intracranial process. Follow-up as clinically indicated. [facility], , 06/13/2024 10:54 AM
--- NOTE | 2024-06-13 11:32 | P.PN ---
Subjective Progress Note Date: 06/13/24 SURGICAL PROGRESS NOTE CHIEF COMPLAINT: SBO HISTORY OF PRESENT ILLNESS: Patient is lying in bed comfortably. Denies any nausea or vomiting. He reports he had flatus and a small bowel movement yesterday. Per nursing staff no bowel movement recorded. Patient does report some mild abdominal discomfort. He is receiving the Dulcolax suppositories and MiraLAX. He is on IV heparin for venous sinus thrombus. Afebrile. WBC is down from 12.7-11.3 Hgb 11.0 platelets 134 PHYSICAL EXAM: VITAL SIGNS: Reviewed. GENERAL: no acute distress. ABDOMEN: Abdomen soft. Mildly distended. Mild diffuse tenderness. NEUROLOGIC: Alert and orientated to name and date ASSESSMENT: 1. Small bowel obstruction 2. Large stool burden throughout the colon 3. Aspiration of oral contrast into the left lung 4. Metabolic encephalopathy 5. Hypokalemia PLAN: -Continue clear liquid diet -Continue MiraLAX and Dulcolax suppository -Continue antibiotics Physician Mid Level Clinician note has been reviewed by physician. Signing provider agrees with the documented findings, assessment, and plan of care. Objective - Vital Signs Vital signs: Vital Signs Temp 97.8 F 06/13/24 07:25 Pulse 86 06/13/24 07:25 Resp 17 06/13/24 07:25 BP 124/77 06/13/24 07:25 Pulse Ox 96 06/13/24 07:25 FiO2 Intake & Output 06/12/24 06/13/24 06/13/24 18:59 06:59 18:59 Intake Total 104.794 Output Total 250 Balance -250 104.794 Intake: Intake, IV Titration 104.794 Amount Heparin Sod,Pork in 0.45% 104.794 NaCl 25,000 unit In 0.45 % NaCl 1 250ml.bag @ 18 UNITS/KG/HR 13.88 mls/hr IV .Q18H1M [facility] Rx#: [id number] Output: Urine 250 Other: Voiding Method Indwelling Catheter Indwelling Catheter - Labs CBC & Chem 7: 06/13/24 09:01 06/11/24 05:41 Labs: Abnormal Lab Results - Last 24 Hours (Table) 06/12/24 06/12/24 06/12/24 Range/Units 17:25 17:25 23:12 WBC 12.7 H (3.8-10.6) k/uL RBC 4.21 L (4.30-5.90) m/uL Hgb 12.5 L (13.0-17.5) gm/dL Hct 38.4 L (39.0-53.0) % Plt Count 142 L (150-450) k/uL Neutrophils # 10.7 H (1.3-7.7) k/uL Lymphocytes # (1.0-4.8) k/uL PT 16.0 H (10.0-12.5) sec INR 1.6 H (<1.2) APTT 158.5 H* (22.0-30.0) sec 06/13/24 06/13/24 Range/Units 09:01 09:01 WBC 11.3 H (3.8-10.6) k/uL RBC 3.77 L (4.30-5.90) m/uL Hgb 11.0 L (13.0-17.5) gm/dL Hct 34.2 L (39.0-53.0) % Plt Count 134 L (150-450) k/uL Neutrophils # 9.6 H (1.3-7.7) k/uL Lymphocytes # 0.8 L (1.0-4.8) k/uL PT (10.0-12.5) sec INR (<1.2) APTT 62.8 H (22.0-30.0) sec
[2024-06-13] MEDS: DEXTROSE 5%-0.2% NACL 1,000 ML IV SCH (12:26)
--- NOTE | 2024-06-13 16:09 | P.PN ---
Subjective Progress Note Date: 06/13/24 I am seeing the patient for the first time during this admission. Please refer to Dr. Mason's note for further details. Seems that the patient has transverse and sigmoid sinus thrombosis and he is on heparin drip. Pending MRI of the brain. Denies any headache or any new deficits since he has been on heparin drip. Objective - Vital Signs Vital signs: Vital Signs Temp 98.0 F 06/13/24 14:32 Pulse 79 06/13/24 14:32 Resp 16 06/13/24 14:32 BP 130/78 06/13/24 14:32 Pulse Ox 97 06/13/24 14:32 FiO2 Intake & Output 06/12/24 06/13/24 06/13/24 18:59 06:59 18:59 Intake Total 104.794 141.503 Output Total 250 550 Balance -250 104.794 -408.497 Weight 77.111 kg Intake: Intake, IV Titration 104.794 141.503 Amount Heparin Sod,Pork in 0.45% 104.794 141.503 NaCl 25,000 unit In 0.45 % NaCl 1 250ml.bag @ 18 UNITS/KG/HR 13.88 mls/hr IV .Q18H1M [facility] Rx#: [id number] Output: Urine 250 550 Other: Voiding Method Indwelling Catheter Indwelling Catheter Indwelling Catheter # Bowel Movements 0 - Exam General is lying in bed and is not in acute distress. Neuro somewhat limited because of his severe arthritis. The patient is awake alert oriented to self place and time. He is somewhat slow to respond. Is following simple commands. No aphasia. The pupils are round equal reactive to light. Visual felix are full to confrontation. No facial weakness. Patient does have dysarthria. Motor the strength is limited because of his severe arthritis but is able to lift up arms above gravity. - Labs CBC & Chem 7: 06/13/24 09:01 06/11/24 05:41 Labs: Abnormal Lab Results - Last 24 Hours (Table) 06/12/24 06/12/24 06/12/24 Range/Units 17:25 17:25 23:12 WBC 12.7 H (3.8-10.6) k/uL RBC 4.21 L (4.30-5.90) m/uL Hgb 12.5 L (13.0-17.5) gm/dL Hct 38.4 L (39.0-53.0) % Plt Count 142 L (150-450) k/uL Neutrophils # 10.7 H (1.3-7.7) k/uL Lymphocytes # (1.0-4.8) k/uL PT 16.0 H (10.0-12.5) sec INR 1.6 H (<1.2) APTT 158.5 H* (22.0-30.0) sec 06/13/24 06/13/24 Range/Units 09:01 09:01 WBC 11.3 H (3.8-10.6) k/uL RBC 3.77 L (4.30-5.90) m/uL Hgb 11.0 L (13.0-17.5) gm/dL Hct 34.2 L (39.0-53.0) % Plt Count 134 L (150-450) k/uL Neutrophils # 9.6 H (1.3-7.7) k/uL Lymphocytes # 0.8 L (1.0-4.8) k/uL PT (10.0-12.5) sec INR (<1.2) APTT 62.8 H (22.0-30.0) sec Assessment and Plan Assessment: * Altered mental status, likely due to metabolic encephalopathy * History of subdural hematoma/hygroma discovered 05/31/2024, treated conservatively * Abnormal CT head, rule out venous sinus thrombosis * Hyponatremia * Acute small bowel obstruction * History of urinary retention * Vitamin B12 deficiency, with myelopathy * Rheumatoid arthritis * Hypertension * Hyperlipidemia * Family history of Loida Gehrig's disease Plan: * CT head revealed resolution of the previously demonstrated subdural hematomas. Hyperdense appearance of the left transverse and sphenoid sinuses including the visualized portion of the internal jugular vein. Raises concern for possible venous thrombosis. Further evaluation with CT or MR venogram is recommended. * MRV brain was motion limited exam due to poor visualization of the transverse sinuses. Consider repeat exam with CT venogram. The sagittal sinus appears patent. Patient denies any headache. * Venous Doppler of the neck revealed no evidence of DVT within the left internal jugular vein. * Repeat CT head revealed hyperdense left transverse sinus extending to the sigmoid sinus and superior neck. Straight sinus is also hyperdense suggesting thrombus. * Stat CTV revealed venous sinus thrombosis confirmed again involving the straight sinus and the left transverse sinus extending into the left sigmoid sinus and the internal jugular vein. Patient interestingly denies headache. * Dr. Mason started him on heparin, DVT protocol and he stated Nursing staff discussed with surgery, and they cleared for heparin. * MRI of the brain is reported as no suspicions of acute intracranial process. * Surgery following the patient for small bowel obstruction. Patient is off NGT. Patient on Flagyl 500 mg every 8 hours and ceftriaxone 1 g every 24 hours. * MRI of the cervical spine 05/28/2024 revealed no evidence for disc herniation or significant spinal canal stenosis. Mild disc degeneration with associated osteoarthritic changes. * MRI brain without contrast 05/31/2024 revealed trace subdural hematomas along the bilateral cerebral convexities extending from front to back and additional trace subdural hematoma along the midline falx. These measure only 3 mm in thickness. Late subacute blood products were suspected. Moderate cerebral cortical volume loss. No hydrocephalus. * B12 < 150, folate 6.9, MMA 0.29, hemoglobin A1c 5.3, CK 384, rheumatoid factor <15, RPR nonreactive. TSH is normal 2.39. Continue B12 replacement. * Patient would need EMG nerve conduction of all 4 extremities as an outpatient. * Patient had an EEG performed 05/30/2024 which was abnormal due to background slowing, suggestive of moderate encephalopathy and rare sharply contoured waves over the left temporal lobe can increase risk of cortical irritability. No electrographic seizure. * No reported clinical seizure-like activity. Hold off on antiepileptic medication. * Treatment of hypernatremia as per IM. Time with Patient: Less than 30
[2024-06-14 06:44] LABS: Basophils % (A) 0 %; Eosinophils # (A) 0.1 k/uL (0-0.7); Eosinophils % (A) 1 %; HCT 34.5 % (39.0-53.0); HGB 11.2 gm/dL (13.0-17.5); Lymphocytes # (A) 1.3 k/uL (1.0-4.8); Lymphocytes % (A) 11 %; MCH 29.2 pg (25.0-35.0); MCHC 32.5 g/dL (31.0-37.0); MCV 90.1 fL (80.0-100.0); Monocytes # (A) 0.5 k/uL (0-1.0); Monocytes % (A) 5 %; Neutrophils # (A) 9.1 k/uL (1.3-7.7); Neutrophils % (A) 81 %; Platelet Count 154 k/uL (150-450); RBC 3.83 m/uL (4.30-5.90); RDW 12.9 % (11.5-15.5); WBC 11.3 k/uL (3.8-10.6)
[2024-06-14 07:03] LABS: African American GFR (CKD) >90 (>60 ml/min/1.73 sqM); Anion Gap 2 mmol/L; Blood Urea Nitrogen 9 mg/dL (9-20); Calcium 7.3 mg/dL (8.4-10.2); Carbon Dioxide 24 mmol/L (22-30); Chloride 110 mmol/L (98-107); Glucose 85 mg/dL (74-99); Non-African American GFR(CKD) >90 (>60 ml/min/1.73 sqM); Potassium 3.4 mmol/L (3.5-5.1); Sodium 136 mmol/L (137-145)
--- NOTE | 2024-06-14 07:45 | PN ---
PROGRESS NOTE DATE OF SERVICE: 06/13/2024 CHIEF COMPLAINT: Bowel obstruction. HISTORY OF PRESENT ILLNESS: This gentleman seems to be doing fairly well. He is more awake and alert. Nurses report that he has not had a bowel movement. PHYSICAL EXAMINATION: ABDOMEN: Still slightly distended and tender. Bowel sounds are heard. IMPRESSION: 1. Small bowel obstruction. 2. Constipation. PLAN: Continue to follow in terms of his abdominal findings and white count. He continues to be followed by Surgery. MMODL / IJN: [id number] /
[2024-06-14] MEDS: ACETAMINOPHEN TAB 325 MG TAB PO PRN (08:16)
[2024-06-14 10:36] LABS: Glucose,Whole Blood 101 mg/dL (70-110)
--- NOTE | 2024-06-14 14:44 | P.PN ---
Subjective Progress Note Date: 06/14/24 SURGICAL PROGRESS NOTE CHIEF COMPLAINT: SBO HISTORY OF PRESENT ILLNESS: Patient denies any abdominal pain. Denies any nausea or vomiting. He is having flatus. No bowel movement as of this morning. Nurse gave suppository with 3-4 rocks of stool. Enemas were ordered. And patient had a good amount of stool with the first enema. Second enema is being given now. Patient was transferred to the third floor for the venous sinus thrombus. He is on IV heparin for venous sinus thrombus. Afebrile. WBC 11.3 Hgb 11.2 potassium 3.4 PHYSICAL EXAM: VITAL SIGNS: Reviewed. GENERAL: no acute distress. ABDOMEN: Abdomen soft. Mildly distended. Mild diffuse tenderness. NEUROLOGIC: Alert and orientated to name and date ASSESSMENT: 1. Small bowel obstruction 2. Large stool burden throughout the colon 3. Aspiration of oral contrast into the left lung 4. Metabolic encephalopathy 5. Hypokalemia PLAN: -Advance diet to full liquids -Continue subset enemas -Continue MiraLAX and Dulcolax suppository -Continue antibiotics -Replace potassium -Discontinue IV Dilaudid Physician Escalator Mechanic note has been reviewed by physician. Signing provider agrees with the documented findings, assessment, and plan of care. Objective - Vital Signs Vital signs: Vital Signs Temp 98.7 F 06/14/24 08:16 Pulse 86 06/14/24 08:16 Resp 16 06/14/24 08:16 BP 132/76 06/14/24 08:16 Pulse Ox 96 06/14/24 08:16 FiO2 Intake & Output 06/13/24 06/14/24 06/14/24 18:59 06:59 18:59 Intake Total 241.503 30 170 Output Total 850 200 Balance -608.497 -170 170 Weight 77.111 kg Intake: IV 30 20 Invasive Line 4 10 Invasive Line 5 20 Invasive Line 6 10 Invasive Line 7 10 Intake, IV Titration 141.503 Amount Heparin Sod,Pork in 0.45% 141.503 NaCl 25,000 unit In 0.45 % NaCl 1 250ml.bag @ 18 UNITS/KG/HR 13.88 mls/hr IV .Q18H1M [facility] Rx#: [id number] Oral 100 150 Output: Urine 850 200 Other: Voiding Method Indwelling Catheter Indwelling Catheter # Bowel Movements 0 1 - Labs CBC & Chem 7: 06/14/24 06:20 06/14/24 06:20 Labs: Abnormal Lab Results - Last 24 Hours (Table) 06/14/24 06/14/24 06/14/24 Range/Units 06:20 06:20 06:20 WBC 11.3 H (3.8-10.6) k/uL RBC 3.83 L (4.30-5.90) m/uL Hgb 11.2 L (13.0-17.5) gm/dL Hct 34.5 L (39.0-53.0) % Neutrophils # 9.1 H (1.3-7.7) k/uL APTT 67.4 H (22.0-30.0) sec Sodium 136 L (137-145) mmol/L Potassium 3.4 L (3.5-5.1) mmol/L Chloride 110 H (98-107) mmol/L Creatinine 0.53 L (0.66-1.25) mg/dL Calcium 7.3 L (8.4-10.2) mg/dL
--- NOTE | 2024-06-14 15:11 | P.PN ---
Subjective Progress Note Date: 06/14/24 I am following-up with patient and he denies of any headache or any new neurological issues. He continues to be on IV heparin. Objective - Vital Signs Vital signs: Vital Signs Temp 98.7 F 06/14/24 08:16 Pulse 67 06/14/24 12:24 Resp 18 06/14/24 12:24 BP 144/78 06/14/24 12:24 Pulse Ox 95 06/14/24 12:24 FiO2 Intake & Output 06/13/24 06/14/24 06/14/24 18:59 06:59 18:59 Intake Total 241.503 30 170 Output Total 850 200 Balance -608.497 -170 170 Weight 77.111 kg Intake: IV 30 20 Invasive Line 4 10 Invasive Line 5 20 Invasive Line 6 10 Invasive Line 7 10 Intake, IV Titration 141.503 Amount Heparin Sod,Pork in 0.45% 141.503 NaCl 25,000 unit In 0.45 % NaCl 1 250ml.bag @ 18 UNITS/KG/HR 13.88 mls/hr IV .Q18H1M [facility] Rx#: [id number] Oral 100 150 Output: Urine 850 200 Other: Voiding Method Indwelling Catheter Indwelling Catheter Indwelling Catheter # Bowel Movements 0 1 - Exam General is lying in bed and is not in acute distress. Neuro somewhat limited because of his severe arthritis. The patient is awake alert oriented to self place and time. He is somewhat slow to respond. Is following simple commands. No aphasia. The pupils are round equal reactive to light. Visual felix are full to confrontation. No facial weakness. Patient does have dysarthria. Motor the strength is limited because of his severe arthritis but is able to lift up arms above gravity. - Labs CBC & Chem 7: 06/14/24 06:20 06/14/24 06:20 Labs: Abnormal Lab Results - Last 24 Hours (Table) 06/14/24 06/14/24 06/14/24 Range/Units 06:20 06:20 06:20 WBC 11.3 H (3.8-10.6) k/uL RBC 3.83 L (4.30-5.90) m/uL Hgb 11.2 L (13.0-17.5) gm/dL Hct 34.5 L (39.0-53.0) % Neutrophils # 9.1 H (1.3-7.7) k/uL APTT 67.4 H (22.0-30.0) sec Sodium 136 L (137-145) mmol/L Potassium 3.4 L (3.5-5.1) mmol/L Chloride 110 H (98-107) mmol/L Creatinine 0.53 L (0.66-1.25) mg/dL Calcium 7.3 L (8.4-10.2) mg/dL Assessment and Plan Assessment: * Altered mental status, likely due to metabolic encephalopathy * History of subdural hematoma/hygroma discovered 05/31/2024, treated c onservatively * CTV revealed venous sinus thrombosis confirmed again involving the straight sinus and the left transverse sinus extending into the left sigmoid sinus and the internal jugular vein--currently on IV heparin * Hyponatremia * Acute small bowel obstruction * History of urinary retention * Vitamin B12 deficiency, with myelopathy * Rheumatoid arthritis * Hypertension * Hyperlipidemia * Family history of Loida Gehrig's disease Plan: * CT head revealed resolution of the previously demonstrated subdural hematomas. Hyperdense appearance of the left transverse and sphenoid sinuses including the visualized portion of the internal jugular vein. Raises concern for possible venous thrombosis. Further evaluation with CT or MR venogram is recommended. * MRV brain was motion limited exam due to poor visualization of the transverse sinuses. Consider repeat exam with CT venogram. The sagittal sinus appears patent. Patient denies any headache. * Venous Doppler of the neck revealed no evidence of DVT within the left internal jugular vein. * Repeat CT head revealed hyperdense left transverse sinus extending to the sigmoid sinus and superior neck. Straight sinus is also hyperdense suggesting thrombus. * Stat CTV revealed venous sinus thrombosis confirmed again involving the straight sinus and the left transverse sinus extending into the left sigmoid sinus and the internal jugular vein. Patient interestingly denies headache. * Dr. Mason started him on heparin, DVT protocol and he stated Nursing staff discussed with surgery, and they cleared for heparin. I will obtain repeat CT head to assess if any changes especially with use of IV heparin. I will change IV heparin to Dabigatran 150mg bid. * I ordered Factor V leiden mutation and Prothrombin [id number] mutation. * MRI of the brain is reported as no suspicions of acute intracranial process. * Surgery following the patient for small bowel obstruction. Patient is off NGT. Patient on Flagyl 500 mg every 8 hours and ceftriaxone 1 g every 24 h ours. * MRI of the cervical spine 05/28/2024 revealed no evidence for disc herniation or significant spinal canal stenosis. Mild disc degeneration with associated osteoarthritic changes. * MRI brain without contrast 05/31/2024 revealed trace subdural hematomas along the bilateral cerebral convexities extending from front to back and additional trace subdural hematoma along the midline falx. These measure only 3 mm in thickness. Late subacute blood products were suspected. Moderate cerebral cortical volume loss. No hydrocephalus. * B12 < 150, folate 6.9, MMA 0.29, hemoglobin A1c 5.3, CK 384, rheumatoid factor <15, RPR nonreactive. TSH is normal 2.39. Continue B12 replacement. * Patient would need EMG nerve conduction of all 4 extremities as an outpatient. * Patient had an EEG performed 05/30/2024 which was abnormal due to background slowing, suggestive of moderate encephalopathy and rare sharply contoured waves over the left temporal lobe can increase risk of cortical irritability. No electrographic seizure. * No reported clinical seizure-like activity. Hold off on antiepileptic medication. * Treatment of hypernatremia as per IM. The plan is discussed with patient and his nurse. Time with Patient: Less than 30
[2024-06-14] MEDS: POTASSIUM CHLORIDE ER 20 MEQ TAB.ER PO STA (16:35)
--- NOTE | 2024-06-14 19:56 | PN ---
PROGRESS NOTE DATE OF SERVICE: 06/14/2024 CHIEF COMPLAINT: Bowel obstruction, and constipation. HISTORY OF PRESENT ILLNESS: This gentleman is doing fairly well and it is reported that he is still not having bowel movements. He is a little bit more alert each day. PHYSICAL EXAMINATION: CHEST: Clear. CARDIAC: Normal. ABDOMEN: Still distended and somewhat tender. IMPRESSION: 1. Bowel obstruction. 2. Delirium and dementia. 3. General debility. PLAN: Continue to monitor his GI function. Intervention is probably ill-advised. MMODL / IJN: [id number] /
--- NOTE | 2024-06-14 22:10 | CT ---
EXAMINATION TYPE: CT brain wo con DATE OF EXAM: 06/14/2024 COMPARISON: 06/11/2024 INDICATION: Sinus thrombosis DLP: 1095.4 mGycm, Automated exposure control for dose reduction was used. CONTRAST: None CT of the brain is performed utilizing 3 mm thick sections through the posterior fossa and 3 mm thick sections through the remaining calvarium. Study is performed within 24 hours of arrival to the hosp [facility]. No abnormal hyperdensity is present to suggest an acute intracranial hemorrhage. No mass lesion is evident. No acute infarcts are evident. Ventricles and sulci are appropriate for the patient age. Paranasal sinuses and mastoid air cells within the [id number] are clear. There is some mild increased density within the left transverse sinus extending towards the sigmoid s inus. Filling defect is not entirely excluded. Some mild heterogeneity of the density in this region. Findings are stable from the CT examination dated 07-03. IMPRESSION: 1. Some increased densities within the left transverse and proximal sigmoid sinus with mildly heter ogenous signal. This may reflect prior thrombus findings and are similar to 06/11/2024 CT brain. [facility], Workstation: [facility], 06/14/2024 10:07 PM
[2024-06-15] MEDS: DABIGATRAN 150 MG CAP PO SCH (00:03)
[2024-06-15 09:08] LABS: Basophils # (A) 0.1 k/uL (0-0.2); Basophils % (A) 1 %; Eosinophils # (A) 0.1 k/uL (0-0.7); Eosinophils % (A) 1 %; HCT 38.6 % (39.0-53.0); Hypochromasia Slight; Lymphocytes # (A) 0.7 k/uL (1.0-4.8); Lymphocytes % (A) 8 %; MCH 28.5 pg (25.0-35.0); MCHC 31.2 g/dL (31.0-37.0); MCV 91.4 fL (80.0-100.0); Mean Platelet Volume 9.3; Monocytes # (A) 0.4 k/uL (0-1.0); Monocytes % (A) 4 %; Neutrophils # (A) 8.3 k/uL (1.3-7.7); Neutrophils % (A) 85 %; Platelet Count 158 k/uL (150-450); RBC 4.22 m/uL (4.30-5.90); RDW 13.1 % (11.5-15.5); WBC 9.8 k/uL (3.8-10.6)
[2024-06-15 09:16] LABS: African American GFR (CKD) >90 (>60 ml/min/1.73 sqM); Anion Gap 5 mmol/L; Blood Urea Nitrogen 3 mg/dL (9-20); Calcium 7.6 mg/dL (8.4-10.2); Carbon Dioxide 24 mmol/L (22-30); Chloride 111 mmol/L (98-107); Glucose 128 mg/dL (74-99); Non-African American GFR(CKD) >90 (>60 ml/min/1.73 sqM); Potassium 3.1 mmol/L (3.5-5.1); Sodium 140 mmol/L (137-145)
--- NOTE | 2024-06-15 13:33 | P.PN ---
Subjective Progress Note Date: 06/15/24 SURGICAL PROGRESS NOTE CHIEF COMPLAINT: SBO HISTORY OF PRESENT ILLNESS: Patient lying in bed comfortably. Denies any abdominal pain. He continues to have bowel movements with the help of enemas, suppositories and MiraLAX. Afebrile. WBC 11.3 down to 9.8 Hgb 12 potassium 3.1 and being replaced PHYSICAL EXAM: VITAL SIGNS: Reviewed. GENERAL: no acute distress. ABDOMEN: Abdomen soft. Nontender NEUROLOGIC: Alert and orientated to name and date ASSESSMENT: 1. Small bowel obstruction 2. Large stool burden throughout the colon 3. Aspiration of oral contrast into the left lung 4. Metabolic encephalopathy 5. Hypokalemia PLAN: -Advance diet to low fiber -Continue MiraLAX and Dulcolax suppository -Continue antibiotics Physician Bindery Worker note has been reviewed by physician. Signing provider agrees with the documented findings, assessment, and plan of care. Attestation Patient seen and examined at bedside. Appears to be doing well on 06/15/2024. Small bowel obstruction appears to be resolved this patient is having multiple bowel movements. Advance diet. Continue medical recommendations. Hussain Dasliva, Objective - Vital Signs Vital signs: Vital Signs Temp 97.8 F 06/15/24 08:25 Pulse 100 06/15/24 08:25 Resp 18 06/15/24 08:25 BP 143/76 06/15/24 08:25 Pulse Ox 95 06/15/24 09:14 FiO2 Intake & Output 06/14/24 06/15/24 06/15/24 18:59 06:59 18:59 Intake Total 170 600 486 Output Total 1900 Balance 170 -1300 486 Intake: IV 20 10 Invasive Line 6 10 10 Invasive Line 7 10 Intake, IV Titration 600 Amount Dextrose 5%-0.2% NaCl 1, 450 000 ml @ 75 mls/hr IV . [id number] [facility] Rx#:[id number] Heparin Sod,Pork in 0.45% 50 NaCl 25,000 unit In 0.45 % NaCl 1 250ml.bag @ 18 UNITS/KG/HR 13.88 mls/hr IV .Q18H1M [facility] Rx#: [id number] metroNIDAZOLE-NS PMX 500 100 mg In Saline 1 100ml.bag @ 100 mls/hr IVPB Q8H [facility] Rx#:[id number] Oral 150 476 Output: Urine 1900 Other: Voiding Method Indwelling Catheter Indwelling Catheter Indwelling Catheter # Bowel Movements 1 1 1 - Labs CBC & Chem 7: 06/15/24 08:19 06/15/24 08:19 Labs: Abnormal Lab Results - Last 24 Hours (Table) 06/15/24 06/15/24 Range/Units 08:19 08:19 RBC 4.22 L (4.30-5.90) m/uL Hgb 12.0 L (13.0-17.5) gm/dL Hct 38.6 L (39.0-53.0) % Neutrophils # 8.3 H (1.3-7.7) k/uL Lymphocytes # 0.7 L (1.0-4.8) k/uL Potassium 3.1 L (3.5-5.1) mmol/L Chloride 111 H (98-107) mmol/L BUN 3 L (9-20) mg/dL Creatinine 0.51 L (0.66-1.25) mg/dL Glucose 128 H (74-99) mg/dL Calcium 7.6 L (8.4-10.2) mg/dL
[2024-06-15] MEDS: POTASSIUM CHLORIDE ER 20 MEQ TAB.ER PO SCH (13:51)
[2024-06-15] MEDS: POTASSIUM CHLORIDE 10 MEQ in WATER FOR INJECTION 1 100ML.BAG IVPB SCH (13:52)
--- NOTE | 2024-06-15 16:36 | P.PN ---
Subjective Progress Note Date: 06/15/24 I am following-up with patient and he denies of any headache, new focal deficit. Objective - Vital Signs Vital signs: Vital Signs Temp 97.8 F 06/15/24 08:25 Pulse 92 06/15/24 12:15 Resp 18 06/15/24 12:15 BP 140/58 06/15/24 12:15 Pulse Ox 95 06/15/24 12:15 FiO2 Intake & Output 06/14/24 06/15/24 06/15/24 18:59 06:59 18:59 Intake Total 170 600 496 Output Total 1900 Balance 170 -1300 496 Intake: IV 20 20 Invasive Line 6 10 20 Invasive Line 7 10 Intake, IV Titration 600 Amount Dextrose 5%-0.2% NaCl 1, 450 000 ml @ 75 mls/hr IV . [id number] [facility] Rx#:[id number] Heparin Sod,Pork in 0.45% 50 NaCl 25,000 unit In 0.45 % NaCl 1 250ml.bag @ 18 UNITS/KG/HR 13.88 mls/hr IV .Q18H1M [facility] Rx#: [id number] metroNIDAZOLE-NS PMX 500 100 mg In Saline 1 100ml.bag @ 100 mls/hr IVPB Q8H [facility] Rx#:[id number] Oral 150 476 Output: Urine 1900 Other: Voiding Method Indwelling Catheter Indwelling Catheter Indwelling Catheter # Bowel Movements 1 1 1 - Exam General is lying in bed and is not in acute distress. Neuro somewhat limited because of his severe arthritis. The patient is awake alert oriented to self place and time. He is somewhat slow to respond. Is following simple commands. No aphasia. The pupils are round equal reactive to light. No facial weakness. Patient does have dysarthria. Motor the strength is limited because of his severe arthritis but is able to lift up arms above gravity. - Labs CBC & Chem 7: 06/15/24 08:19 06/15/24 08:19 Labs: Abnormal Lab Results - Last 24 Hours (Table) 06/15/24 06/15/24 Range/Units 08:19 08:19 RBC 4.22 L (4.30-5.90) m/uL Hgb 12.0 L (13.0-17.5) gm/dL Hct 38.6 L (39.0-53.0) % Neutrophils # 8.3 H (1.3-7.7) k/uL Lymphocytes # 0.7 L (1.0-4.8) k/uL Potassium 3.1 L (3.5-5.1) mmol/L Chloride 111 H (98-107) mmol/L BUN 3 L (9-20) mg/dL Creatinine 0.51 L (0.66-1.25) mg/dL Glucose 128 H (74-99) mg/dL Calcium 7.6 L (8.4-10.2) mg/dL Assessment and Plan Assessment: * Altered mental status, likely due to metabolic encephalopathy * History of subdural hematoma/hygroma discovered 05/31/2024, treated conservatively * CTV revealed venous sinus thrombosis confirmed again involving the straight sinus and the left transverse sinus extending into the left sigmoid sinus and the internal jugular vein--currently on IV heparin * Hyponatremia * Acute small bowel obstruction * History of urinary retention * Vitamin B12 deficiency, with myelopathy * Rheumatoid arthritis * Hypertension * Hyperlipidemia * Family history of Loida Gehrig's disease Plan: * CT head revealed resolution of the previously demonstrated subdural hematomas. Hyperdense appearance of the left transverse and sphenoid sinuses including the visualized portion of the internal jugular vein. Raises concern for possible venous thrombosis. Further evaluation with CT or MR venogram is recommended. * MRV brain was motion limited exam due to poor visualization of the transverse sinuses. Consider repeat exam with CT venogram. The sagittal sinus appears patent. Patient denies any headache. * Venous Doppler of the neck revealed no evidence of DVT within the left interna l jugular vein. * Repeat CT head revealed hyperdense left transverse sinus extending to the sigmoid sinus and superior neck. Straight sinus is also hyperdense suggesting thrombus. * Stat CTV revealed venous sinus thrombosis confirmed again involving the straight sinus and the left transverse sinus extending into the left sigmoid sinus and the internal jugular vein. Patient interestingly denies headache. * Dr. Mason started him on heparin, DVT protocol and he stated Nursing staff discussed with surgery, and they cleared for heparin. I changed IV heparin to Dabigatran 150mg bid on 06/14/2024 and recommend for about 3 month but recommend follow-up with outpatient neurologist or adult basic education manager if they want to extend even further. * Pending V leiden mutation and Prothrombin 36519L/A mutation. * MRI of the brain is reported as no suspicions of acute intracranial process. * Surgery following the patient for small bowel obstruction. Patient is off NGT. Patient on Flagyl 500 mg every 8 hours and ceftriaxone 1 g every 24 hours. * MRI of the cervical spine 05/28/2024 revealed no evidence for disc herniation or significant spinal canal stenosis. Mild disc degeneration with associated osteoarthritic changes. * MRI brain without contrast 05/31/2024 revealed trace subdural hematomas along the bilateral cerebral convexities extending from front to back and additional trace subdural hematoma along the midline falx. These measure only 3 mm in thickness. Late subacute blood products were suspected. Moderate cerebral cortical volume loss. No hydrocephalus. * Repeat CT head on 06/14/2024: Reported as some increased densities within the left transverse and proximal sigmoid sinus with mildly heterogeneous signal. This may reflect prior thrombus finding and are similar to 06/11/2024 CT brain. I personally reviewed the CT and I do not appreciate any bleed that seems obvious. * B12 < 150, folate 6.9, MMA 0.29, hemoglobin A1c 5.3, CK 384, rheumatoid factor <15, RPR nonreactive. TSH is normal 2.39. Continue B12 replacement. * Patient would need EMG nerve conduction of all 4 extremities as an outpatient. * Patient had an EEG performed 05/30/2024 which was abnormal due to background slowing, suggestive of moderate encephalopathy and rare sharply contoured waves over the left temporal lobe can increase risk of cortical irritability. No electrographic seizure. * No reported clinical seizure-like activity. Hold off on antiepileptic medication. * Treatment of hypernatremia as per IM. Time with Patient: Less than 30
--- NOTE | 2024-06-16 15:40 | P.PN ---
Subjective Progress Note Date: 06/16/24 SURGICAL PROGRESS NOTE CHIEF COMPLAINT: SBO HISTORY OF PRESENT ILLNESS: Patient lying in bed comfortably. Denies any abdominal pain. He is having bowel movement. He was unable to eat the soft diet because he has no teeth. Afebrile. WBC is down from 11-9.8 PHYSICAL EXAM: VITAL SIGNS: Reviewed. GENERAL: no acute distress. ABDOMEN: Abdomen soft. Nontender NEUROLOGIC: Alert and orientated to name and date ASSESSMENT: 1. Small bowel obstruction 2. Large stool burden throughout the colon 3. Aspiration of oral contrast into the left lung 4. Metabolic encephalopathy PLAN: -Change diet to ground diet due to patient having difficulty with chewing -Continue MiraLAX and Dulcolax suppository -Continue antibiotics Physician Tray Checker note has been reviewed by physician. Signing provider agrees with the documented findings, assessment, and plan of care. Attestation Patient seen and examined at bedside. Having bowel function and tolerating diet. Continue medical management. Hussain Dasilva, Objective - Vital Signs Vital signs: Vital Signs Temp 98.3 F 06/16/24 12:52 Pulse 86 06/16/24 12:52 Resp 18 06/16/24 12:52 BP 138/75 06/16/24 12:52 Pulse Ox 97 06/16/24 12:52 FiO2 21 06/16/24 08:32 Intake & Output 06/15/24 06/16/24 06/16/24 18:59 06:59 18:59 Intake Total 616 20 380 Output Total 1200 700 Balance -584 -680 380 Weight 77.111 kg Intake: IV 20 20 20 Invasive Line 6 20 20 10 Invasive Line 7 10 Oral 596 360 Output: Urine 1200 700 Other: Voiding Method Indwelling Catheter Indwelling Catheter Indwelling Catheter # Bowel Movements 1 4 1 - Labs CBC & Chem 7: 06/15/24 08:19 06/15/24 08:19
[2024-06-17 08:19] LABS: African American GFR (CKD) >90 (>60 ml/min/1.73 sqM); Anion Gap 5 mmol/L; Blood Urea Nitrogen 4 mg/dL (9-20); Calcium 7.6 mg/dL (8.4-10.2); Carbon Dioxide 19 mmol/L (22-30); Chloride 111 mmol/L (98-107); Glucose 78 mg/dL (74-99); Non-African American GFR(CKD) >90 (>60 ml/min/1.73 sqM); Potassium 4.3 mmol/L (3.5-5.1); Sodium 135 mmol/L (137-145)
--- NOTE | 2024-06-17 15:52 | P.PN ---
Subjective Progress Note Date: 06/17/24 SURGICAL PROGRESS NOTE CHIEF COMPLAINT: SBO HISTORY OF PRESENT ILLNESS: Patient lying in bed comfortably. Denies any abdominal pain. He is having bowel movement. He is doing better with eating a ground diet. PHYSICAL EXAM: VITAL SIGNS: Reviewed. GENERAL: no acute distress. ABDOMEN: Abdomen soft. Nontender NEUROLOGIC: Alert and orientated to name and date ASSESSMENT: 1. Small bowel obstruction resolved 2. Large stool burden throughout the colon 3. Aspiration of oral contrast into the left lung 4. Metabolic encephalopathy PLAN: -Continue ground diet -Continue MiraLAX and Dulcolax suppository Physician Car Hiker note has been reviewed by physician. Signing provider agrees with the documented findings, assessment, and plan of care. Objective - Vital Signs Vital signs: Vital Signs Temp 98.3 F 06/17/24 15:37 Pulse 76 06/17/24 15:37 Resp 18 06/17/24 15:37 BP 128/69 06/17/24 15:37 Pulse Ox 97 06/17/24 15:37 FiO2 21 06/16/24 08:32 Intake & Output 06/16/24 06/17/24 06/17/24 18:59 06:59 18:59 Intake Total 380 256 Output Total 1550 Balance 380 -1550 256 Weight 77.111 kg 77 kg Intake: IV 20 20 Invasive Line 6 10 10 Invasive Line 7 10 10 Oral 360 236 Output: Urine 1550 Other: Voiding Method Indwelling Catheter Indwelling Catheter Indwelling Catheter # Voids 3 1 # Bowel Movements 1 1 - Labs CBC & Chem 7: 06/15/24 08:19 06/17/24 07:01 Labs: Abnormal Lab Results - Last 24 Hours (Table) 06/17/24 Range/Units 07:01 Sodium 135 L (137-145) mmol/L Chloride 111 H (98-107) mmol/L Carbon Dioxide 19 L (22-30) mmol/L BUN 4 L (9-20) mg/dL Creatinine 0.52 L (0.66-1.25) mg/dL Calcium 7.6 L (8.4-10.2) mg/dL Assessment and Plan Assessment: small bowel obstruction resolved -continue bowel regimen Time with Patient: Less than 30
--- NOTE | 2024-06-17 19:52 | P.PN ---
Subjective Progress Note Date: 06/17/24 I am following-up with patient and he continues to be feeling well. Denies of any headache or any focal deficit. Objective - Vital Signs Vital signs: Vital Signs Temp 98.5 F 06/17/24 19:46 Pulse 74 06/17/24 19:46 Resp 18 06/17/24 19:46 BP 119/80 06/17/24 19:46 Pulse Ox 97 06/17/24 19:46 FiO2 21 06/16/24 08:32 Intake & Output 06/17/24 06/17/24 06/18/24 06:59 18:59 06:59 Intake Total 496 Output Total 1550 1100 Balance -1550 -604 Weight 77 kg Intake: IV 20 Invasive Line 6 10 Invasive Line 7 10 Oral 476 Output: Urine 1550 1100 Other: Voiding Method Indwelling Catheter Indwelling Catheter # Voids 3 1 # Bowel Movements 1 - Exam General is lying in bed and is not in acute distress. Neuro somewhat limited because of his severe arthritis. The patient is awake alert oriented to self place and time. He is somewhat slow to respond. Is following simple commands. No aphasia. The pupils are round equal reactive to light. No facial weakness. Patient does have dysarthria. Motor the strength is limited because of his severe arthritis but is able to lift up arms above gravity. - Labs CBC & Chem 7: 06/15/24 08:19 06/17/24 07:01 Labs: Abnormal Lab Results - Last 24 Hours (Table) 06/17/24 Range/Units 07:01 Sodium 135 L (137-145) mmol/L Chloride 111 H (98-107) mmol/L Carbon Dioxide 19 L (22-30) mmol/L BUN 4 L (9-20) mg/dL Creatinine 0.52 L (0.66-1.25) mg/dL Calcium 7.6 L (8.4-10.2) mg/dL Assessment and Plan Assessment: * Altered mental status, likely due to metabolic encephalopathy * History of subdural hematoma/hygroma discovered 05/31/2024, treated conservatively * CTV revealed venous sinus thrombosis confirmed again involving the straight sinus and the left transverse sinus extending into the left sigmoid sinus and the internal jugular vein--currently on IV heparin * Hyponatremia * Acute small bowel obstruction * History of urinary retention * Vitamin B12 deficiency, with myelopathy * Rheumatoid arthritis * Hypertension * Hyperlipidemia * Family history of Loida Gehrig's disease Plan: * CT head revealed resolution of the previously demonstrated subdural hematomas. Hyperdense appearance of the left transverse and sphenoid sinuses including the visualized portion of the internal jugular vein. Raises concern for possible venous thrombosis. Further evaluation with CT or MR venogram is recommended. * MRV brain was motion limited exam due to poor visualization of the transverse sinuses. Consider repeat exam with CT venogram. The sagittal sinus appears patent. Patient denies any headache. * Venous Doppler of the neck revealed no evidence of DVT within the left internal jugular vein. * Repeat CT head revealed hyperdense left transverse sinus extending to the sigmoid sinus and superior neck. Straight sinus is also hyperdense suggesting thrombus. * Stat CTV revealed venous sinus thrombosis confirmed again involving the straight sinus and the left transverse sinus extending into the left sigmoid sinus and the internal jugular vein. Patient interestingly denies headache. * Dr. Mason started him on heparin, DVT protocol and he stated Nursing staff discussed with surgery, and they cleared for heparin. I changed IV heparin to Dabigatran 150mg bid on 06/14/2024 and recommend for about 3 month but recommend follow-up with outpatient neurologist or manager games if they want to extend even further. * Pending V leiden mutation. Prothrombin [id number] mutation: negative. * MRI of the brain is reported as no suspicions of acute intracranial process. * Surgery following the patient for small bowel obstruction. Patient is off NGT. Patient on Flagyl 500 mg every 8 hours and ceftriaxone 1 g every 24 hours. * MRI of the cervical spine 05/28/2024 revealed no evidence for disc herniation or significant spinal canal stenosis. Mild disc degeneration with associated osteoarthritic changes. * MRI brain without contrast 05/31/2024 revealed trace subdural hematomas along the bilateral cerebral convexities extending from front to back and additional trace subdural hematoma along the midline falx. These measure only 3 mm in thickness. Late subacute blood products were suspected. Moderate cerebral cortical volume loss. No hydrocephalus. * Repeat CT head on 06/14/2024: Reported as some increased densities within the left transverse and proximal sigmoid sinus with mildly heterogeneous signal. This may reflect prior thrombus finding and are similar to 06/11/2024 CT brain. I personally reviewed the CT and I do not appreciate any bleed that seems obvious. * B12 < 150, folate 6.9, MMA 0.29, hemoglobin A1c 5.3, CK 384, rheumatoid factor <15, RPR nonreactive. TSH is normal 2.39. Continue B12 replacement. * Patient would need EMG nerve conduction of all 4 extremities as an outpatient. * Patient had an EEG performed 05/30/2024 which was abnormal due to background slowing, suggestive of moderate encephalopathy and rare sharply contoured waves over the left temporal lobe can increase risk of cortical irritability. No electrographic seizure. * No reported clinical seizure-like activity. Hold off on antiepileptic medication. * Treatment of hypernatremia as per IM. Will follow-up with patient sporadically. Dr. Mason will resume neurology service on 06/20/2024 A.M. Time with Patient: Less than 30
--- NOTE | 2024-06-18 14:25 | P.PN ---
Subjective patient seen and evaluated bedside or new complaints, no overnight events patient having bowel function Objective - Vital Signs Vital signs: Vital Signs Temp 97.8 F 06/18/24 09:03 Pulse 77 06/18/24 09:03 Resp 16 06/18/24 09:03 BP 125/69 06/18/24 09:03 Pulse Ox 97 06/18/24 09:30 FiO2 21 06/16/24 08:32 Intake & Output 06/17/24 06/18/24 06/18/24 18:59 06:59 18:59 Intake Total 496 Output Total 1100 1999 950 Balance -604 -2000 -950 Intake: IV 20 Invasive Line 6 10 Invasive Line 7 10 Oral 476 Output: Urine 1100 1999 950 Other: Voiding Method Indwelling Catheter Indwelling Catheter Indwelling Catheter # Voids 1 1 # Bowel Movements 1 1 1 - Exam general no acute distress Cardiovascular regular rhythm Pulmonary nonlabored breathing Abdomen is soft nontender nondistended no guarding rebound tenderness - Labs CBC & Chem 7: 06/15/24 08:19 06/17/24 07:01 Assessment and Plan Assessment: 1. Small bowel obstruction resolved 2. Large stool burden throughout the colon 3. Aspiration of oral contrast into the left lung 4. Metabolic encephalopathy Time with Patient: Less than 30
--- NOTE | 2024-06-18 14:28 | P.GSCN ---
History of Present Illness Consult date: 06/18/24 History of present illness: 73 yo debiltated male in the hospital with weakness and abdominal pain from the senior living. The patient had a a small bowel obstruction treated conservatively. The patient has a suprapubic tube and we are asked to assess. THE TUBE WAS PLACED BY 05/20/24 when the patient was in the hospital. Apparently there was a false passage in the urethra requiring the placement of the suprapubic tube.the patient can give me no more history. I do not know whether he went to the office subsequent sleep. He has a same tube in place. P er the nursing staff he does have some leakage per urethra. Review of Systems ROS unobtainable: due to mental status All systems: negative - Constitutional Denies fever, Denies weight loss - EENT Eyes: denies blurred vision Ears, nose, mouth and throat: Denies dysphagia - Cardiovascular Denies chest pain, Denies shortness of breath - Respiratory Denies cough, Denies 7 - Gastrointestinal Reports as per HPI - Genitourinary Denies dysuria, Denies hematuria - Integumentary Denies rash, Denies unusual bruising - Neurological Denies headaches, Denies syncope - Hematologic/Lymphatic Denies easy bleeding, Denies easy bruising Past Medical History Past Medical History: Hyperlipidemia, Hypertension, Rheumatoid Arthritis (RA), Thyroid Disorder History of Any Multi-Drug Resistant Organisms: None Reported Past Surgical History: Hernia Repair Past Anesthesia/Blood Transfusion Reactions: No Reported Reaction Past Psychological History: No Psychological Hx Reported Smoking Status: Former smoker Past Alcohol Use History: None Reported Past Drug Use History: None Reported Medications and Allergies Home Medications Medication Instructions Recorded Confirmed Type Clotrimazole Cream [Lotrimin Cream] 1 applic TOPICAL BID each 05/31/24 06/06/24 Rx Folic Acid 1 mg PO DAILY #100 tab 05/31/24 06/06/24 Rx amLODIPine [Norvasc] 5 mg PO DAILY #90 tab 05/31/24 06/06/24 Rx Acetaminophen Tab [Tylenol] 650 mg PO Q6H PRN 06/06/24 06/06/24 History Cyanocobalamin [Vitamin B-12 1,000 mcg IM HS 06/06/24 06/06/24 History Injection] Ondansetron [Zofran] 4 mg PO Q6H PRN 06/06/24 06/06/24 History Allergies Allergy/AdvReac Type Severity Reaction Status Date / Time No Known Allergies Allergy Verified 06/06/24 00:35 Surgical - Exam Vital Signs Temp Pulse Resp BP Pulse Ox 97.7 F 113 H 18 133/89 94 L 06/06/24 00:35 06/06/24 00:35 06/06/24 00:35 06/06/24 00:35 06/06/24 00:35 - General previous stroke, dysarthria well developed, chronically ill - Eyes PERRL - ENT no hearing loss - Neck trachea midline - Respiratory normal respiratory effort - Cardiovascular Rhythm: regular - Abdomen Abdomen: soft, non tender - Genitourinary percutaneous suprapubic tube. Probable 8 or 10-[place]. The tube is draining clear yellow urine. - Psychiatric oriented to person, oriented to place Results - Labs 06/15/24 08:19 06/17/24 07:01 Abnormal Lab Results - Last 24 Hours (Table) 06/17/24 Range/Units 07:01 Sodium 135 L (137-145) mmol/L Chloride 111 H (98-107) mmol/L Carbon Dioxide 19 L (22-30) mmol/L BUN 4 L (9-20) mg/dL Creatinine 0.52 L (0.66-1.25) mg/dL Calcium 7.6 L (8.4-10.2) mg/dL Diabetes panel 06/17/24 Range/Units 07:01 Sodium 135 L (137-145) mmol/L Potassium 4.3 (3.5-5.1) mmol/L Chloride 111 H (98-107) mmol/L Carbon Dioxide 19 L (22-30) mmol/L BUN 4 L (9-20) mg/dL Creatinine 0.52 L (0.66-1.25) mg/dL Glucose 78 (74-99) mg/dL Calcium 7.6 L (8.4-10.2) mg/dL Calcium panel 06/17/24 Range/Units 07:01 Calcium 7.6 L (8.4-10.2) mg/dL Pituitary panel 06/17/24 Range/Units 07:01 Sodium 135 L (137-145) mmol/L Potassium 4.3 (3.5-5.1) mmol/L Chloride 111 H (98-107) mmol/L Carbon Dioxide 19 L (22-30) mmol/L BUN 4 L (9-20) mg/dL Creatinine 0.52 L (0.66-1.25) mg/dL Glucose 78 (74-99) mg/dL Calcium 7.6 L (8.4-10.2) mg/dL Adrenal panel 06/17/24 Range/Units 07:01 Sodium 135 L (137-145) mmol/L Potassium 4.3 (3.5-5.1) mmol/L Chloride 111 H (98-107) mmol/L Carbon Dioxide 19 L (22-30) mmol/L BUN 4 L (9-20) mg/dL Creatinine 0.52 L (0.66-1.25) mg/dL Glucose 78 (74-99) mg/dL Calcium 7.6 L (8.4-10.2) mg/dL - Imaging CT scan - abdomen: report reviewed, image reviewed CT scan - pelvis: report reviewed, image reviewed Assessment and Plan Assessment: Impression: SBO treated conservatively. Urine retention with previous placement of an SP tube. Plan:the patient will probably at some in time evaluation as to whether he even needs a tube for urine retention. If he does then he would probably need cystoscopy and possibly conversion to a more permanent suprapubic tube.. At present the tube seems to be functioning appropriately. If the tube kinks he will probably urinate per urethra.
[2024-06-19 10:43] LABS: African American GFR (CKD) >90 (>60 ml/min/1.73 sqM); Anion Gap 5 mmol/L; Blood Urea Nitrogen 4 mg/dL (9-20); Calcium 8.1 mg/dL (8.4-10.2); Carbon Dioxide 22 mmol/L (22-30); Chloride 108 mmol/L (98-107); Glucose 104 mg/dL (74-99); Non-African American GFR(CKD) >90 (>60 ml/min/1.73 sqM); Potassium 4.4 mmol/L (3.5-5.1); Sodium 135 mmol/L (137-145)
--- NOTE | 2024-06-20 04:48 | PN ---
PROGRESS NOTE CHIEF COMPLAINT: Bowel obstruction. HISTORY OF PRESENT ILLNESS: This gentleman seems to be doing fairly well. PHYSICAL EXAMINATION: VITAL SIGNS: Normal. CHEST: Clear. CARDIAC: Normal. IMPRESSION: Small bowel obstruction and constipation. PLAN: If he continues to stool and do as well as he is, we can probably send him back to the long term soon. The question is if he can and what he can swallow without aspiration. MMODL / IJN: [id number] /
--- NOTE | 2024-06-20 06:03 | PN ---
PROGRESS NOTE CHIEF COMPLAINT: Bowel obstruction. HISTORY OF PRESENT ILLNESS: This gentleman is doing fairly well, and he is moving stool now. PHYSICAL EXAM: ABDOMEN: Still somewhat distended and slightly tender. Bowel sounds are present. CHEST: Clear. CARDIAC: Normal. IMPRESSION: Small bowel obstruction - improving. PLAN: Continue with current program. If he continues to pass stool, he can probably go back to the [facility] soon. MMODL / IJN: [id number] /
--- NOTE | 2024-06-20 07:18 | PN ---
PROGRESS NOTE CHIEF COMPLAINT: Bowel obstruction. HISTORY OF PRESENT ILLNESS: This gentleman's condition is just about the same. He is stooling now. He is slightly more awake. PHYSICAL EXAMINATION: CHEST: Clear. CARDIAC: Normal. ABDOMEN: Still slightly distended, but he is stooling and bowel sounds are present. IMPRESSION: Bowel obstruction with return to stool activity. PLAN: Continue with current program and start to consider a discharge plan. MMODL / IJN: [id number] /
--- NOTE | 2024-06-20 07:20 | PN ---
PROGRESS NOTE DATE OF SERVICE: 06/15/2024 CHIEF COMPLAINT: Bowel obstruction. HISTORY OF PRESENT ILLNESS: This gentleman is doing fairly well and he is starting to pass gas and stool. His potassium has dropped and this will be corrected. PHYSICAL EXAMINATION: CHEST: Clear. CARDIAC: Normal. ABDOMEN: Slightly less distended. IMPRESSION: 1. Bowel obstruction. 2. Hypokalemia. PLAN: Replace potassium and continue to follow bowel activity, and he may be able to go back to the [facility] in several days. MMODL / IJN: [id number] /
--- NOTE | 2024-06-20 07:48 | PN ---
PROGRESS NOTE DATE OF SERVICE: 06/17/2024 CHIEF COMPLAINT: Small bowel obstruction. HISTORY OF PRESENT ILLNESS: This gentleman is doing well. He is passing stool and is otherwise fairly stable. Electrolytes are being followed. PHYSICAL EXAMINATION: VITAL SIGNS: Normal. CHEST: Clear. ABDOMEN: Slightly protuberant. He has some generalized mild tenderness. Bowel sounds are heard. IMPRESSION: 1. Small bowel obstruction. 2. Constipation. PLAN: If he continues to improve, he will probably be able to return to the [facility] in a few days. MMODL / IJN: [id number] /
--- NOTE | 2024-06-20 12:32 | P.PN ---
Subjective Progress Note Date: 06/20/24 SURGICAL PROGRESS NOTE CHIEF COMPLAINT: SBO HISTORY OF PRESENT ILLNESS: Patient lying in bed comfortably. Tolerating diet. He is having bowel movements. He is scheduled for discharge today to [facility]. Afe brile. PHYSICAL EXAM: VITAL SIGNS: Reviewed. GENERAL: no acute distress. ABDOMEN: soft. Nondistended. Nontender NEUROLOGIC: Awake and alert. ASSESSMENT: 1. Small bowel obstruction resolved conservative management 2. Large stool burden throughout the colon 3. Aspiration of oral contrast into the left lung 4. Metabolic encephalopathy PLAN: -Agree with discharge plan -Continue ground diet -Continue MiraLAX discharge Physician Absence Management Consultant note has been reviewed by physician. Signing provider agrees with the documented findings, assessment, and plan of care. Objective - Vital Signs Vital signs: Vital Signs Temp 98.1 F 06/20/24 08:00 Pulse 84 06/20/24 08:00 Resp 18 06/20/24 08:00 BP 111/73 06/20/24 08:00 Pulse Ox 95 06/20/24 08:00 FiO2 21 06/16/24 08:32 Intake & Output 06/19/24 06/20/24 06/20/24 18:59 06:59 18:59 Intake Total 260 20 510 Output Total 650 1200 750 Balance -390 -1180 -240 Intake: IV 20 20 Invasive Line 6 20 Invasive Line 7 20 Intake, IV Titration 150 Amount Dextrose 5%-0.2% NaCl 1, 150 000 ml @ 75 mls/hr IV . [id number] [facility] Rx#:[id number] Oral 240 360 Output: Urine 650 1200 750 Other: Voiding Method Indwelling Catheter Indwelling Catheter Indwelling Catheter # Bowel Movements 1 1 3 - Labs CBC & Chem 7: 06/15/24 08:19 06/19/24 10:02
[2024-06-20] MEDS: TAMSULOSIN 0.4 MG CAP.ER.24H PO SCH (18:03)
--- NOTE | 2024-06-21 18:21 | P.PN ---
Subjective Progress Note Date: 06/21/24 Patient seen and examined at bedside. Resting comfortably. Continues to have bowel function. Objective - Vital Signs Vital signs: Vital Signs Temp 97.3 F L 06/21/24 16:00 Pulse 98 06/21/24 16:00 Resp 18 06/21/24 14:00 BP 122/77 06/21/24 16:00 Pulse Ox 97 06/21/24 16:00 FiO2 21 06/16/24 08:32 Intake & Output 06/20/24 06/21/24 06/21/24 18:59 06:59 18:59 Intake Total 1490 100 418 Output Total 2250 950 325 Balance -760 -850 93 Weight 77 kg 77 kg Intake: Intake, IV Titration 150 300 Amount Dextrose 5%-0.2% NaCl 1, 150 300 000 ml @ 75 mls/hr IV . [id number] [facility] Rx#:[id number] Oral 1340 100 118 Output: Urine 2250 950 325 Other: Voiding Method Indwelling Catheter Indwelling Catheter Indwelling Catheter # Bowel Movements 2 1 1 - Constitutional General appearance: Present: cooperative - Gastrointestinal Gastrointestinal Comment(s): Soft, nontender, nondistended, no rebound, no guarding - Labs CBC & Chem 7: 06/15/24 08:19 06/19/24 10:02 Assessment and Plan Plan: Small bowel obstruction resolved. Patient having bowel movements. Agree with plan for discharge. No plan for acute surgical intervention. Please call surgical team for an evaluation should any change in clinical progress occur.
--- NOTE | 2024-06-22 14:33 | DS ---
DISCHARGE SUMMARY CHIEF COMPLAINT: Abdominal pain and bowel obstruction. HISTORY OF PRESENT ILLNESS AND PHYSICAL EXAMINATION: Details of this man's history and physical can be found in the initial workup. LABORATORY STUDIES: While he was in the hospital, he had laboratory studies, details of which can be found in the laboratory section of his chart. COURSE IN THE HOSPITAL: After admission, he was placed on bedrest, started on intravenous fluids and he was seen by Surgery. He had a significant stool load and it was felt that this probably was the cause of his obstruction. He was started on stool softeners, cathartics, and enemas. His bowel activity started to improve and his obstruction was relieved. He was started back on liquids and slowly advanced to solids. He is doing well enough, it was felt that he could go back to [facility] on the . FINAL DIAGNOSES: 1. Bowel obstruction. 2. Constipation. 3. Encephalopathy. 4. Dementia. 5. Moderate protein-calorie malnutrition. OPERATIONS: None. CONSULTATIONS: General Surgery. STEVE / SILVERIO: [id number] /
--- NOTE | 2024-06-22 15:41 | P.PN ---
Subjective Progress Note Date: 06/22/24 SURGICAL PROGRESS NOTE CHIEF COMPLAINT: SBO HISTORY OF PRESENT ILLNESS: Patient lying in bed comfortably. Tolerating diet. He is having bowel movements. He is scheduled for discharge today to [facility] after seen by urology. Afebrile. PHYSICAL EXAM: VITAL SIGNS: Reviewed. GENERAL: no acute distress. ABDOMEN: soft. Nondistended. Nontender NEUROLOGIC: Awake and alert. ASSESSMENT: 1. Small bowel obstruction resolved conservative management 2. Large stool burden throughout the colon 3. Aspiration of oral contrast into the left lung 4. Metabolic encephalopathy PLAN: -Agree with discharge plan -Continue ground diet -Continue MiraLAX discharge -Surgical service will sign off. Please call with any questions or concerns Physician Counseling Case Manager note has been reviewed by physician. Signing provider agrees with the documented findings, assessment, and plan of care. Attestation Patient seen and examined at bedside. No acute events. No changes. Agree with discharge plan. Please call surgical service for any further recommendations. Hussain Dasilva, Objective - Vital Signs Vital signs: Vital Signs Temp 98.1 F 06/22/24 10:35 Pulse 92 06/22/24 10:35 Resp 18 06/22/24 10:35 BP 106/65 06/22/24 10:35 Pulse Ox 97 06/22/24 10:35 FiO2 21 06/16/24 08:32 Intake & Output 06/21/24 06/22/24 06/22/24 18:59 06:59 18:59 Intake Total 418 118 Output Total 325 1725 Balance 93 -1725 118 Intake: Intake, IV Titration 300 Amount Dextrose 5%-0.2% NaCl 1, 300 000 ml @ 75 mls/hr IV . [id number] [facility] Rx#:[id number] Oral 118 118 Output: Urine 325 1725 Other: Voiding Method Indwelling Catheter Indwelling Catheter Indwelling Catheter # Bowel Movements 1 1 - Labs CBC & Chem 7: 06/15/24 08:19 06/19/24 10:02
[2024-06-22] MEDS: LIDOCAINE 2% (PF) 20 MG/ML 5 ML VIAL SQ STA (18:12)
[2024-06-22 18:16] VITALS: BP 110/60; PULSE 90; RESP 17; TEMP 98
--- NOTE | 2024-06-22 19:17 | P.PN ---
Subjective Progress Note Date: 06/22/24 Principal diagnosis: Urinary retention The patient underwent insertion of a suprapubic tube on May 20, 2024 for urinary retention. He is being transferred back to [facility] here at [facility] this evening. His nurse noted that the sutures securing the suprapubic tube in place have pulled away from the skin. Objective - Vital Signs Vital signs: Vital Signs Temp 98 F 06/22/24 16:00 Pulse 90 06/22/24 16:00 Resp 17 06/22/24 16:00 BP 110/60 06/22/24 16:00 Pulse Ox 98 06/22/24 16:00 FiO2 21 06/16/24 08:32 Intake & Output 06/22/24 06/22/24 06/23/24 06:59 18:59 06:59 Intake Total 118 Output Total 1725 1000 Balance -1725 -882 Intake: Oral 118 Output: Urine 1725 1000 Other: Voiding Method Indwelling Catheter Indwelling Catheter # Voids 1 # Bowel Movements 1 - Constitutional General appearance: Present: average body habitus, cooperative, no acute distress - Gastrointestinal Gastrointestinal Comment(s): Soft, non-distended, non-tender. Suprapubic tube in place, draining clear yellow urine. - Labs CBC & Chem 7: 06/15/24 08:19 06/19/24 10:02 Assessment and Plan (1) Retention of urine, unspecified Status: Acute Code(s): R33.9 - RETENTION OF URINE, UNSPECIFIED SNOMED Code(s): 344328490 Plan: The skin surrounding the suprapubic catheter was prepped and draped sterilely. 2% lidocaine was injected subcutaneously. 2-0 nylon sutures were then placed to secure the suprapubic tube in place. The patient is to be transferred to [facility]. Arrangements will be made for him to undergo office cystoscopy in the near future.
--- NOTE | 2024-06-24 06:16 | PN ---
PROGRESS NOTE DATE OF SERVICE: 06/21/2024 CHIEF COMPLAINT: Bowel obstruction. HISTORY OF PRESENT ILLNESS: This gentleman is doing well and things are moving through. He can go back to the [facility] once arrangements are made. PHYSICAL EXAMINATION: GENERAL: He is awake and alert, but still weak and not appropriate. CHEST: Clear. ABDOMEN: Soft, nontender. IMPRESSION: 1. Small bowel obstruction. 2. Constipation. 3. Urinary retention with suprapubic catheter. 4. General debility. PLAN: Return to the [facility] once arrangements are made. MMODL / IJN: [id number] /
--- NOTE | 2024-06-24 07:39 | PN ---
PROGRESS NOTE DATE OF SERVICE: 06/20/2024 CHIEF COMPLAINT: Bowel obstruction and constipation. HISTORY OF PRESENT ILLNESS: This gentleman is stable and is being looked at go back to the [facility] anytime. PHYSICAL EXAMINATION: CHEST: Clear. CARDIAC: Normal. ABDOMEN: Flat and soft. Suprapubic catheter is still in place. NEUROLOGICAL: He is more alert, but still lethargic and confused. IMPRESSION: 1. Small-bowel obstruction. 2. Constipation. 3. Urinary retention. 4. Encephalopathy and dementia. PLAN: Back to the [facility] once arrangements are made. MMODL / IJN: [id number] /
== END 2024-06-22 18:43 | DRG 388 ==
LOC: EC 00:33 → 4SSUR 02:17 → 1SOBS 07:04 → 4SSUR 06-07 21:33 → 3SCARD 06-13 13:41
PROVIDERS: ADMIT Family Medicine; ATTEND Family Medicine
PROC: 0D9670Z Drainage of Stomach with Drainage Device, Via Natural or Artificial Opening (ICD-10-PCS; principal; 2024-06-07)
DX: K56.41 Fecal impaction (principal); G08 Intracranial and intraspinal phlebitis and thrombophlebitis; I62.00 Nontraumatic subdural hemorrhage, unspecified; J69.0 Pneumonitis due to inhalation of food and vomit; G93.41 Metabolic encephalopathy; E44.0 Moderate protein-calorie malnutrition; T17.898A Other foreign object in other parts of respiratory tract causing other injury, initial encounter; E87.1 Hypo-osmolality and hyponatremia; M50.00 Cervical disc disorder with myelopathy, unspecified cervical region; K56.699 Other intestinal obstruction unspecified as to partial versus complete obstruction; N17.9 Acute kidney failure, unspecified; T83.038A Leakage of other urinary catheter, initial encounter; J44.9 Chronic obstructive pulmonary disease, unspecified; F03.90 Unspecified dementia, unspecified severity, without behavioral disturbance, psychotic disturbance, mood disturbance, and anxiety; M06.9 Rheumatoid arthritis, unspecified; I69.322 Dysarthria following cerebral infarction; I10 Essential (primary) hypertension; E87.6 Hypokalemia; E53.8 Deficiency of other specified B group vitamins; E78.5 Hyperlipidemia, unspecified; R53.81 Other malaise; R33.9 Retention of urine, unspecified; Y73.1 Therapeutic (nonsurgical) and rehabilitative gastroenterology and urology devices associated with adverse incidents; Z68.26 Body mass index [BMI] 26.0-26.9, adult; Z79.899 Other long term (current) drug therapy; Z87.891 Personal history of nicotine dependence; Z82.0 Family history of epilepsy and other diseases of the nervous system
CPT/HCPCS: 36415; 70450; 70496; 70544; 70551; 71045; 74018; 74019; 74022; 74176; 74250; 80048; 80053; 81001; 81240; 81241; 82150; 83605; 83690; 85025; 85027; 85610; 85730; 93970; 94760; 96361; 96365; 96375; 96376; 99291